=== PATIENT | female | born 1990 ===

== ENCOUNTER 2024-06-27 23:57 | Emergency (ER) | payer BC, SELFPAY ==
[2024-06-28 00:02] VITALS: BP 158/84; PULSE 65; RESP 20; TEMP 36.8; O2SAT 99; BMI 25.8
--- NOTE | 2024-06-28 00:33 | CRLHL7_ITS ---
For Patients: As a result of the Century Cures Act, medical imaging exams and procedure reports are released immediately into your electronic medical record. You may view this report before your referring provider. If you have questions, please contact your health care provider. Indication: Right flank pain Technique: Noncontrast CT through the abdomen and pelvis with multiplanar reformats. Comparison: None Findings: Lower chest: No acute abnormality appreciated. Hepatobiliary: No significant parenchymal abnormality is appreciated. Spleen: Unremarkable. Pancreas: No acute abnormality appreciated. Adrenal glands: No acute abnormality appreciated. Kidneys: No significant parenchymal abnormality appreciated. No visualized calculi. No hydronephrosis. Bowel: No obstruction. No focal perienteric or pericolonic stranding is appreciated. The appendix is visualized and appears unremarkable. Vascular: Poorly evaluated on this noncontrast examination. Lymph nodes: No gross lymphadenopathy. Peritoneum: No free air. No free fluid. : Right ovarian/adnexal cyst measures 6.8 centimeters. Soft tissues: No acute abnormality appreciated. Bones: No acute fracture. No lytic or blastic lesion. Impression: Right ovarian/adnexal cyst measures 6.8 centimeters, torsion not excluded. No other acute abnormality appreciated. Please note that all CT scans at this facility use dose modulation, iterative reconstruction, and/or weight-based dosing when appropriate to reduce radiation dose to as low as reasonably achievable. Dictated by Ran Elizondo MD @ 06/28/2024 12:58:14 AM (Electronically Signed)
--- NOTE | 2024-06-28 00:34 | ED.GENADULT ---
HPI - General Adult General Date Seen: 06/28/24 Chief complaint: Flank Pain Stated complaint: Kidney pain Time Seen by Provider: 06/28/24 00:28 Source: patient Mode of arrival: ambulatory Limitations: no limitations History of Present Illness HPI narrative: Patient is a 34-year-old female who comes in with five days of right flank pain. She denies any urinary symptoms. She has had no hematuria or dysuria. No fevers or chills. She has history of kidney stones with the last one being about six months ago. She has not take anything for pain. Her PCP is in [facility]. She is homeless and has been couch hopping for the past year. She has continued to work. She denies any other chronic health problems and takes no medications regularly. Related Data Home Medications ?Medication ?Instructions ?Recorded ?Confirmed No Known Home Medications 06/28/24 06/28/24 Allergies Allergy/AdvReac Type Severity Reaction Status Date / Time amoxicillin Allergy Mild Hives Verified 06/28/24 00:04 clavulanic acid Allergy Mild Hives Verified 06/28/24 00:04 [From Augmentin] Review of Systems Narrative: Review of systems is outlined above otherwise noted to be negative. [facility] Medical History (Updated 06/28/24 @ 01:17 by Trever West MD) History of kidney stones ?Z87.442 - Personal history of urinary calculi (ICD-10) Surgical History (Updated 06/28/24 @ 00:06 by Patrick Godinez RN) No significant past surgical history Social History Smoking Status: Never smoker Second hand tobacco smoke exposure: No How often do you have a drink containing alcohol: never AUDIT-C Alcohol total score: 0 Non-prescribed substance use: denies use Exam Narrative: Exam Narrative: Vitals noted. HEENT: Conjunctiva clear. Neck is supple without adenopathy, thyromegaly. Lungs: Clear to auscultation in all begum. No wheezes, rales, rhonchi. Heart: Regular rate and rhythm without murmur. Abdomen: Soft and nontender. No guarding, rigidity, rebound. Bowel sounds are normal. No palpable masses. She has some right CVA tenderness but in general does not appear terribly uncomfortable. Extremities: No cyanosis or edema. Good distal pulses. Skin: No abnormalities noted of the exposed skin. Neurologic: Awake, alert, fully oriented. Neurologic exam is nonfocal. Const: Vital Signs, click to edit/add: Vital Signs - 24 hr 06/28/24 00:02 06/28/24 01:25 06/28/24 01:29 Temperature 98.2 F 98.2 F 98.2 F Pulse Rate [Right Pulse Oximeter] 65 68 68 Respiratory Rate 20 20 20 Blood Pressure [Ri ght Upper Arm] 158/84 H 134/74 134/74 Pulse Oximetry 99 99 Oxygen Delivery Me thod Room Air Room Air Course Course ED Course: Patient seen and examined. Urinalysis and CT of her abdomen and pelvis without contrast is ordered. Reevaluation(s) Reevaluation #1: Urinalysis is normal. CT of the abdomen shows a 6.8 cm right ovarian cyst. The remainder of the CT is normal. Vital Signs Vital signs: Initial Vital Signs Temperature 98.2 F 06/28/24 00:02 Temperature Source Temporal Artery Scan 06/28/24 00:02 Pulse Rate 65 06/28/24 00:02 Respiratory Rate 20 06/28/24 00:02 Blood Pressure 158/84 H 06/28/24 00:02 Blood Pressure Mean 108 H 06/28/24 00:02 Blood Pressure Position Sitting 06/28/24 00:02 Pulse Oximetry 99 06/28/24 00:02 Oxygen Delivery Method Room Air 06/28/24 00:02 Vital Signs Temperature 98.2 F 06/28/24 00:02 Pulse Rate 65 06/28/24 00:02 Respiratory Rate 20 06/28/24 00:02 Blood Pressure 158/84 H 06/28/24 00:02 Pulse Oximetry 99 06/28/24 00:02 Oxygen Delivery Method Room Air 06/28/24 00:02 Temperature 98.2 F 06/28/24 01:29 Pulse Rate 68 06/28/24 01:29 Respiratory Rate 20 06/28/24 01:29 Blood Pressure 134/74 06/28/24 01:29 Pulse Oximetry 99 06/28/24 01:25 Oxygen Delivery Method Room Air 06/28/24 01:25 Medical Decision Making Lab Data Labs: Lab Results 06/28/24 Range/Units 00:30 Urine Color Yellow (Yellow) Urine Appearance Clear (Clear) Urine pH 5.5 (5.0-8.5) Ur Specific [place] >= 1.030 (1.000-1.030) Urine Protein Negative (Negative) Urine Glucose (UA) Negative (Negative) Urine Ketones Negative (Negative) Urine Blood Trace-intact A (Negative) Urine Nitrite Negative (Negative) Urine Bilirubin Negative (Negative) Urine Urobilinogen 0.2 (0.2-1.0) Ur Leukocyte Esterase Negative (Negative) Urine RBC 0-2 (0-2) Urine WBC 0-2 (0-5) Ur Squamous Epith Cells Few (None-Few) Urine Bacteria Few A (None) Urine Mucus Moderate A (None) Discharge Plan Discharge Clinical Impression: Cyst of right ovary Patient Disposition: Home, Self-Care Condition: Stable Additional Instructions: Rest, heat. Tylenol 1000 mg every 6 hours as needed, ibuprofen 600 mg every 6 hours as needed, oxycodone 5 mg every 6 hours for refractory pain. Follow-up with [facility] to discuss treatment options. Prescriptions: No Action No Known Home Medications Follow Up/Referrals: Provider,Not a Local [Primary Care Provider] - Stand Alone Forms: [employer] Info Instructions
[2024-06-28 01:00] LABS: Appearance Urine Clear (Clear); Bilirubin Urine Negative (Negative); Blood Urine Trace-intact (Negative); Color Urine Yellow (Yellow); Glucose Urine Negative (Negative); Ketones Urine Negative (Negative); Leukocyte Esterase Urine Negative (Negative); Nitrite Urine Negative (Negative); Protein Urine Negative (Negative); Specific Gravity Urine >= 1.030 (1.000-1.030); Urobilinogen Urine 0.2 (0.2-1.0); pH Urine 5.5 (5.0-8.5)
[2024-06-28 01:16] LABS: Bacteria Urine Few; RBC Urine 0-2 (0-2); Squamous Epithelial Cell Urine Few (None-Few); WBC Urine 0-2 (0-5)
[2024-06-28 01:17] LABS: Mucus Urine Moderate
[2024-06-28 01:25] VITALS: BP 134/74; PULSE 68; RESP 20; TEMP 36.8; O2SAT 99
[2024-06-28 01:29] VITALS: BP 134/74; PULSE 68; RESP 20; TEMP 36.8
== END 2024-06-28 01:29 | disposition home or self-care (01) ==
PROVIDERS: Emergency Provider Family Medicine
DX: N83.201 Unspecified ovarian cyst, right side (principal)
CPT/HCPCS: 74176; 81001; 81003; 87086; 99282; 99283; 99284

== ENCOUNTER 2024-06-30 01:21 | Emergency (ER) | payer BC, SELFPAY ==
[2024-06-30 01:28] VITALS: BP 134/99; PULSE 78; RESP 18; TEMP 36.3; O2SAT 97; BMI 25.1
--- NOTE | 2024-06-30 01:58 | ED.GENADULT ---
HPI - General Adult General Date Seen: 06/30/24 Chief complaint: Urogenital Problems, Female Stated complaint: ovarian cyst pain Time Seen by Provider: 06/30/24 01:57 History of Present Illness HPI narrative: 34-year-old female with a history of kidney stones, currently homeless, presents to the ER today with abdominal pain. She was seen in the ER 2 nights ago on 06/28/[address] West for this. Workup in the ER 2 nights ago showed normal urinalysis. CT scan showed evidence for right ovarian cyst. Impression: Right ovarian/adnexal cyst measures 6.8 centimeters, torsion not excluded. No other acute abnormality appreciated. Patient was given a prescription for oxycodone and has an appointment to follow-up in the [place] [facility] later this week (with a PA-patient unsure who). She has been having ongoing pain from this ovarian cyst. It has been coming and going in waves and it is fairly intolerable for her. When she takes oxycodone she is able to rest for few hours but the pain does not go away. She is now out of oxycodone. This evening around 9:00 p.m. she had a really severe flare of pain in her right lower quadrant. It felt like her right lower quadrant was much more painful, bloated and pulsing. Also some pain radiating into her right flank. She wanted to come straight to the ER at that time, but could not get a ride. She had wait till after midnight for her friend to bring her in. She still says she is having severe pain. No fever or chills. She has been nauseous from pain but no vomiting. Bowel movements have been normal. Urination has been normal. She just had her menstrual cycle last week and it has been normal. No abdominal trauma. Related Data Home Medications ?Medication ?Instructions ?Recorded ?Confirmed No Known Home Medications 06/28/24 06/28/24 Allergies Allergy/AdvReac Type Severity Reaction Status Date / Time amoxicillin Allergy Mild Hives Verified 06/28/24 00:04 clavulanic acid Allergy Mild Hives Verified 06/28/24 00:04 [From Augmentin] [facility] Medical History (Updated 06/30/24 @ 03:58 by Mario Mendez MD) History of kidney stones ?Z87.442 - Personal history of urinary calculi (ICD-10) Surgical History (Updated 06/28/24 @ 00:06 by Patrick Godinez RN) No significant past surgical history Social History Smoking Status: Never smoker Do you use any of these nicotine containing products: None Second hand tobacco smoke exposure: No How often do you have a drink containing alcohol: never How often do you have six or more drinks on one occasion: Never AUDIT-C Alcohol total score: 0 Non-prescribed substance use: denies use service: No Exam Narrative: Exam Narrative: Constitutional: Appears well-developed and well-nourished. Alert. Conversant. Non toxic. HENT: Head: Atraumatic. Nose: Nose normal. Mouth/Throat: Oral mucosa is clear and moist. no trismus. Pharynx normal. Tonsils symmetric. No tonsillar enlargement, erythema, or exudate. Eyes: Conjunctivae normal. EOM normal. Pupils equal, round, and reactive to light. No scleral icterus. Neck: Normal range of motion. Neck supple. No tracheal deviation present. Cardiovascular: Normal rate, regular rhythm. No gallop. No friction rub. No murmur heard. Pulmonary/Chest: Effort normal. No stridor. No respiratory distress. No wheezes. No rales. No rhonchi . Abdominal: Soft. Bowel sounds normal. No distension. No mass. Marked right lower quadrant tenderness. Right CVA tenderness as well. No left-sided tenderness. No rebound. No guarding. Musculoskeletal: RUE: Normal range of motion. No tenderness. No deformity LUE: Normal range of motion. No tenderness. No deformity RLE: Normal range of motion. No edema. No tenderness. No deformity LLE: Normal range of motion. No edema. No tenderness. No deformity Neurological: Alert and oriented to person, place, and time. Normal strength. CN II-VII intact. No sensory deficit. GCS eye subscore is 4. GCS verbal subscore is 5. GCS motor subscore is 6. Normal coordination Skin: Skin is warm and dry. No rash noted. No pallor. Normal capillary refill. Psychiatric: Normal mood. Normal affect. Const: Vital Signs, click to edit/add: Vital Signs - 24 hr 06/30/24 01:28 06/30/24 04:07 Temperature 97.3 F L 98.0 F Pulse Rate [Pulse Oximeter] 78 98 Respiratory Rate 18 16 Blood Pressure [Le ft Upper Arm] 134/99 H 118/70 Pulse Oximetry 97 Oxygen Delivery Me thod Room Air Course Vital Signs Vital signs: Initial Vital Signs Temperature 97.3 F L 06/30/24 01:28 Temperature Source Temporal Artery Scan 06/30/24 01:28 Pulse Rate 78 06/30/24 01:28 Pulse Rhythm Regular 06/30/24 01:28 Respiratory Rate 18 06/30/24 01:28 Blood Pressure 134/99 H 06/30/24 01:28 Blood Pressure Mean 110 H 06/30/24 01:28 Blood Pressure Position Supine 06/30/24 01:28 Pulse Oximetry 97 06/30/24 01:28 Oxygen Delivery Method Room Air 06/30/24 01:28 Vital Signs Temperature 97.3 F L 06/30/24 01:28 Pulse Rate 78 06/30/24 01:28 Respiratory Rate 18 06/30/24 01:28 Blood Pressure 134/99 H 06/30/24 01:28 Pulse Oximetry 97 06/30/24 01:28 Oxygen Delivery Method Room Air 06/30/24 01:28 Temperature 98.0 F 06/30/24 04:07 Pulse Rate 98 06/30/24 04:07 Respiratory Rate 16 06/30/24 04:07 Blood Pressure 118/70 06/30/24 04:07 Pulse Oximetry 97 06/30/24 01:28 Oxygen Delivery Method Room Air 06/30/24 01:28 Medications Administered Medications: Discontinued Medications Generic Name Dose Route Start Last Admin Trade Name Freq PRN Reason Stop Dose Admin Hydromorphone HCl 0.5 mg 06/30/24 02:11 06/30/24 02:43 Hydromorphone 0.5 Mg/0.5 Ml Inj IVP 0.5 mg Q1H PRN Administration Pain Sodium Chloride 1,000 mls @ 1,000 mls/hr 06/30/24 02:15 06/30/24 02:42 0.9 % Sodium Chloride 1000 Ml IV 06/30/24 03:14 1,000 mls/hr .Q1H RIK Administration Ketorolac Tromethamine 15 mg 06/30/24 02:11 06/30/24 02:43 Ketorolac 15 Mg/Ml Inj IVP 06/30/24 02:12 15 mg ONCE ONE Administration Ondansetron HCl 4 mg 06/30/24 02:11 06/30/24 02:43 Ondansetron 2 Mg/Ml Inj IVP 06/30/24 02:12 4 mg ONCE ONE Administration Medical Decision Making MDM Narrative Medical decision making narrative: 34-year-old female returning to the ER tonight (accompanied by her friend) for her worsening right lower quadrant right flank abdominal pain. She had been seen here 2 days ago for these symptoms. Urinalysis was normal and CT scan showed a fairly large simple appearing right ovarian cyst. She was given a prescription for oxycodone 2 nights ago but is now out and is having worsening pain. With significant worsening pain tonight, concern is for possible ovarian torsion because this fairly large cyst. Differential would also include cyst related pain, cyst rupture, problem, appendicitis, among others. Laboratory workup is reassuring. test negative. Pelvic ultrasound with Doppler flow is obtained and does demonstrate flow in that ovary. After pain meds the patient is clinically looking good. She is laughing and joking with her friends. Although she was endorsing severe pain at home here in the ER her presentation does not suggest active torsion. With blood flow on the ultrasound reassuring clinical exam I think she is safe for discharge home. She has a follow-up scans still this week with OBGYN. She will keep that appointment. Refill prescription for Percocet through [facility]. Prescription for Zofran through [facility] tablets. Lab Data Labs: Lab Results 06/30/24 06/30/24 Range/Units 02:20 02:36 WBC 6.93 (4.50-11.00) K/uL RBC 4.35 (4.00-5.20) m/uL Hgb 13.3 (12.0-16.0) gm/dL Hct 40.6 (33.0-51.0) % MCV 93 (80-100) fL MCH 31 (26-34) pg MCHC 33 (32-36) gm/dL RDW Coeff of Vee 12.5 (11.5-15.5) % Plt Count 234 (140-440) K/uL Neut % (Auto) 55.7 (42.0-72.0) % Lymph % (Auto) 34.5 (20-44) % [place] % (Auto) 6.9 (0.0-11.0) % Eos % (Auto) 2.2 (0.0-7.0) % Baso % (Auto) 0.1 (0.0-3.0) % Neut # (Auto) 3.86 (1.7-7.0) K/uL Lymph # (Auto) 2.39 (0.90-2.90) K/uL [place] # (Auto) 0.50 (0.00-0.90) K/UL Eos # (Auto) 0.15 (0.00-0.50) K/uL Baso # (Auto) 0.01 (0.00-0.30) K/uL Abs Immat Gran (auto) 0.04 (0.00-0.30) K/uL Imm/Tot Granulo (auto) 0.6 % Sodium 135 (135-149) mmol/L Potassium 4.1 (3.6-5.1) mmol/L Chloride 101 (96-114) mmol/L Carbon Dioxide 29 (20-32) mmol/L Anion Gap 5 L (7-15) mEq/L BUN 14 (5-24) mg/dL Creatinine 0.7 (0.5-1.5) mg/dL Estimated Creat Clear 114.23 Estimated GFR 116 ml/min Glucose 81 (60-115) mg/dL Calcium 9.3 (8.4-10.6) mg/dL Urine HCG, Qual Negative (Negative) Imaging Data US pelvis: Attestation: I have reviewed the pertinent imaging results. Radiologist's impression: Impression: Redemonstration of a large right simple appearing ovarian cyst measuring up to 6.9 centimeters. No other significant sonographic abnormality is appreciated. Please be aware, ovarian torsion remains a clinical diagnosis and can be present despite sonographic demonstration of blood flow. If there is strong clinical concern for torsion, gynecologic surgical consultation would be recommended. Otherwise, gynecologic surgical referral would be recommended for possible symptomatic cyst management. Discharge Plan Discharge Clinical Impression: Cyst of right ovary Patient Disposition: Home, Self-Care Condition: Stable Instructions: Ovarian Cyst (ED) Additional Instructions: Please come back to the ER right away if you have worsening pain, develops fever, uncontrolled nausea or vomiting, or have any other concerns. Please follow-up with your OB doctor this week for recheck. Use caution with prescription pr a killer such as oxycodone because they can cause dizziness and drowsiness and you should not drive for 6 hours after taking a pain pill.. Also, please start on stool softeners to avoid constipation. Be careful with oxycodone because it can be addictive. Prescriptions: No Action No Known Home Medications Follow Up/Referrals: Provider,Not a Local [Primary Care Provider] - Stand Alone Forms: [employer] Info Instructions
--- NOTE | 2024-06-30 02:11 | CRLHL7_ITS ---
For Patients: As a result of the Century Cures Act, medical imaging exams and procedure reports are released immediately into your electronic medical record. You may view this report before your referring provider. If you have questions, please contact your health care provider. Indication: Pelvic pain, right ovarian cyst Technique: Transvaginal pelvic ultrasound. Grayscale and color Doppler imaging utilized. Comparison: CT of the abdomen and pelvis performed 06/28/2024 Findings: Uterus: 8.6 x 3.9 x 5.5 centimeters. No masses or other significant parenchymal abnormality appreciated. Endometrium: 5 millimeters. Endometrium appears homogeneous. Right ovary: 7.2 x 4.6 x 6.7 centimeters. Redemonstration of a 6.9 x 4.8 x 6.0 centimeter cyst, grossly appearing simple but difficult to definitively assess due to large size. Arterial and venous waveforms detected. Left ovary: 5.1 x 2.9 x 3.1 centimeters. Unremarkable sonographic appearance. Arterial and venous waveforms detected. Other: No free fluid. Impression: Redemonstration of a large right simple appearing ovarian cyst measuring up to 6.9 centimeters. No other significant sonographic abnormality is appreciated. Please be aware, ovarian torsion remains a clinical diagnosis and can be present despite sonographic demonstration of blood flow. If there is strong clinical concern for torsion, gynecologic surgical consultation would be recommended. Otherwise, gynecologic surgical referral would be recommended for possible symptomatic cyst management. Dictated by Ran Elizondo MD @ 06/30/2024 3:48:26 AM (Electronically Signed)
[2024-06-30 02:32] LABS: Ur HCG Qualitative* Negative (Negative)
[2024-06-30] MEDS: 0.9 % SODIUM CHLORIDE 1000 ml 1,000 ML IV (02:42)
[2024-06-30] MEDS: KETOROLAC 15 MG/ML inj IVP (02:43)
[2024-06-30] MEDS: HYDROmorphone 0.5 mg/0.5 ml inj IVP (02:43)
[2024-06-30] MEDS: ONDANSETRON 2 MG/ML inj 4 MG IVP (02:43)
[2024-06-30 02:52] LABS: Basophils Absolute Auto 0.01 K/uL (0.00-0.30); Basophils Percent Auto 0.1 % (0.0-3.0); Eosinophils Absolute Auto 0.15 K/uL (0.00-0.50); Eosinophils Percent Auto 2.2 % (0.0-7.0); Hematocrit 40.6 % (33.0-51.0); Hemoglobin* 13.3 gm/dL (12.0-16.0); Immature Granulocytes Abs Auto 0.04 K/uL (0.00-0.30); Immature Granulocytes Pct Auto 0.6 %; Lymphocytes Absolute Auto 2.39 K/uL (0.90-2.90); Lymphocytes Percent Auto 34.5 % (20-44); Mean Corpuscular HGB Conc 33 gm/dL (32-36); Mean Corpuscular Hemoglobin 31 pg (26-34); Mean Corpuscular Volume 93 fL (80-100); Monocytes Percent Auto 6.9 % (0.0-11.0); Neutrophils Absolute Auto 3.86 K/uL (1.7-7.0); Neutrophils Percent Auto 55.7 % (42.0-72.0); Platelet Count* 234 K/uL (140-440); RDW Coefficient of Variation % 12.5 % (11.5-15.5); Red Blood Count 4.35 m/uL (4.00-5.20); White Blood Count* 6.93 K/uL (4.50-11.00)
[2024-06-30 03:00] LABS: Slide Review Reflex No
[2024-06-30 03:12] LABS: Chloride* 101 mmol/L (96-114); Potassium* 4.1 mmol/L (3.6-5.1); Sodium* 135 mmol/L (135-149)
[2024-06-30 03:14] LABS: Creatinine* 0.7 mg/dL (0.5-1.5); Est. Creatinine Clearance* 114.23; Estimated Glomerular Filt Rate 116 ml/min
[2024-06-30 03:15] LABS: Anion Gap 5 mEq/L (7-15); Blood Urea Nitrogen* 14 mg/dL (5-24); Calcium* 9.3 mg/dL (8.4-10.6); Carbon Dioxide* 29 mmol/L (20-32); Glucose* 81 mg/dL (60-115)
[2024-06-30 04:07] VITALS: BP 118/70; PULSE 98; RESP 16; TEMP 36.7
== END 2024-06-30 04:08 | disposition home or self-care (01) ==
PROVIDERS: Emergency Provider Emergency Medicine
DX: N83.291 Other ovarian cyst, right side (principal)
CPT/HCPCS: 36415; 76830; 80048; 81025; 85025; 93976; 96374; 96375; 99283; 99284; J1170; J1885; J2405; J7030

== ENCOUNTER 2024-07-03 10:33 | Day surgery (SDC) | payer BC, SELFPAY ==
[2024-07-03] VITALS (12 sets, daily range): BP systolic 121–142; BP diastolic 77–106; PULSE 47–60; RESP 16–18; TEMP 36.4–36.6; O2SAT 95–100; BMI 28.4
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
--- OUTSIDE RECORDS SUMMARY | 2024-07-03 10:37 | XMS_ITS | Referral Summary ---
Author Organization [facility] Address [address] [place] [address] Care Team Providers Care Continuous Pickling Line Pickler Helper Name Role Phone Renee Nieto PA-C Primary Care Provider [phone] Musa Slater Unavailable Unavailable AnuradhaDee Dee Rock Unavailable Unav ailable Encounters Date Type Department Care Team Description 06/15/2024 9:00 AM CDT Virtual Visit [address] [id number] Arabella Lock MD Anxiety and depression (Primary Dx); Borderline personality disorder (HCC); Homeless; Obsessive-compulsive disorder, unspecified type from Last 3 Months Allergies Active Allergy Reactions Criticality Noted Date [...] smoker 07/13/2023 Vitamin D insufficiency--recheck level in Decemb er 2021. 08/06/2022 Major depressive disorder 11/20/2021 [...] 1 year. 07/20/11:Pap--ASCUS, +HR HPV 70. Plan [place] - . In , ep, prob list, hx updated. 08/30/11: KIANNA 2 on colpo. Pap--ASC-H. [facility] referral made. LEEP scheduled for 10/11/11. Reminder in [facility]. LEEP 10/17--KIANNA 1-2 with clear margins; Pap in 6 months x 2. Then Yearly Paps until 2030. Reminder placed in [facility]. 05/08/12:ASCUS, -HPV. Repeat pap @ Annual Physical Exam in 10/2012 (per Provider). Reminder placed in [facility]IC 12/07/12: Patient failed follow-up. Pap tracking file closed. 02/13/13:Pap--NIL. Pap 1 year. 11/11/14:Pap--NIL, neg HPV. Pap + HPV cotesting in 1 year. 08/05/17 Pap: NIL/neg HPV. Immunizations Name Administration Dates Next Due HPV 12/27/2007,08/16/2007,03/08/2007 HPV9 12/27/2007,08/16/2007,03/08/2007 Hep A Immune Globulin 03/12/2009 Hep B Pediatric 06/28/2003,11/26/2002,06/26/2002 MMR 06/26/2002 Meningococcal MCV4P 03/28/2008 Pneumococcal PPSV23 03/12/2009 Td 06/26/2002 Tdap 02/03/2022 Social History Tobacco Use Types Packs/Day Years [...] Comments Blood Pressure 134/84 10/06/2023 2:36 PM [facility] Pulse 80 10/06/2023 2:36 PM [facility] Temperature 36.9 ??C (98.4 ??F) 10/06/2023 2:36 PM CS T Respiratory Rate 12 10/06/2023 2:36 PM [facility] Oxygen Saturation 98% 10/06/2023 2:36 PM [facility] Inhaled Oxygen Concentration - - Weight 83 kg (183 lb) 10/06/2023 2:36 PM [facility] Height 171.5 cm (5' 7.5) 10/06/2023 2:36 PM [facility] Body Mass Index 28.24 10/06/2023 2:36 PM [facility] Plan of Treatment Not on file Procedures Procedure Name Priority Date/Time Associated Diagnosis Comments HCV ANTIBODY ([facility]) Routine 10/06/2023 3:26 PM [facility] Screening for STDs (sexually transmitted diseases) [facility] PAP/APTIMA HPV W/REFLEX TO HPV GENOTYPES ([facility]) Routine 10/06/2023 3:26 PM [facility] Screening for cervical cancer from Last 3 Months or Most Recently Relevant to Health Maintenance Results * [facility] PAP/APTIMA HPV W/REFLEX TO HPV GENOTYPES ([facility]) (10/06/2023 3:26 PM [facility]) Diagnosis: ([facility]) Comment 03/2023 9:06 PM [facility] Comment: NEGATIVE FOR INTRAEPITHELIAL LESION OR MALIGNANCY. THIS SPECIMEN WAS RESCREENED PART OF OUR [employer] STORE BAGGER PROGRAM. Specimen Adequacy: ([facility]) Comment 10/11/2023 9:06 PM [facility] Comment: Satisfactory for evaluation. Endocervical and/or squamous metaplastic cells (endocervical component) are present. Clinician Provided ICD10: ([facility]) Comment 10/11/2023 9:06 PM [facility] Comment: Z12.4 Performed by: Comment 10/11/2023 9:06 PM [facility] Comment: Rodrigo Hackett Sr, Scarifier Operator (ASC) QC Reviewed by: ([facility]) Comment 10/11/2023 9:06 PM [facility] Comment: Saran Sauceda, Scarifier Operator (ASC) Cyto Comments ([facility]) . 10/11/2023 9:06 PM [facility] Note: ([facility]) Comment 9:06 PM [facility] Comment: The Pap smear is a screening test designed to aid in the detection of premalignant and malignant conditions of the uterine cervix. ??It is not a diagnostic procedure and should not be used as the sole means of detecting cervical cancer. ??Both false-positive and false-negative reports do occur. HPV Aptima ([facility]) Negative Negative 03/2023 9:06 PM [facility] Comment: This nucleic acid amplification test detects fourteen high-risk HPV types (16,18,31,33,35,39,45,51,52,56,58,59,66,68) without differentiation. HPV Genotype Reflex ([facility]) Comment 10/11/2023 9:06 PM [facility] Comment: Criteria not met, HPV Genotype not performed. Test Methodology ([facility]) Comment 10/11/2023 9:06 PM [facility] Comment: This liquid based ThinPrep(R) pap test was screened with the use of an image guided system. Pap 10/06/2023 3:26 PM [facility] 10/06/2023 3:26 PM [facility] Narrative [facility] - 10/11/2023 9:06 PM [facility] Specimen Comment: [id number] Specimen Comment: Source.............Cervix Specimen Comment: LMP / Prev Treat...None Specimen Comment: Dates / Results....LEEP AT AGE 21 Specimen Comment: No. of containers..01 ThinPrep Vial Performed at: ??01 - [facility] [address] [facility] [address], [place] ??[id number] Chain Repairer: Corinne Mckeon MD, Phone: ??[phone] Performed at: ??02 - [facility] [place] [address], [place], [place] ??[id number] Chain Repairer: Antoine Bartlett MD, Phone: ??[phone] Performed at: ??03 - [facility] [address] ??[id number] Chain Repairer: Micheal Bartlett MD, Phone: ??[phone] Renee Mario Hammer PA-C [facility]LES Performing Organization Address City/[facility]/ZIP Co de Phone Number [facility] [address] [place] [address] * HCV ANTIBODY ([facility]) (10/06/2023 3:26 PM [facility]) Hepatitis C Virus Antibody ([facility]) Non Reactive Non Reactive 10/08/2023 8:09 AM [facility] Comment: HCV antibody alone does not differentiate between previously resolved infection and active infection. Equivocal and Reactive HCV antibody results should be followed up with an HCV RNA test to support the diagnosis of active HCV infection. Blood Venipuncture / Unknown 10/06/2023 3:26 PM [facility] 10/06/2023 3:26 PM [facility] Narrative [facility] - 10/08/2023 8:09 AM [facility] Performed at: ??01 - [address] ??[id number] Chain Repairer: Zia Navarrete MD, Phone: ??[phone] Renee Nieto PA-C [facility] ORDER[facility] Performing Organization Address [facility] Co de Phone Number [facility] [address] [place] [address] from Last 3 Months or Most Recently Relevant to Health Maintenance Care Teams Continuous Pickling Line Pickler Helper Relationship Specialty Start Date End Date Renee Nieto PA-C [address] [place], [place] [phone] PCP - General Family Medicine 02/28/24 Musa Slater Patient Hand Nailer 06/26/24 Dee Dee Melchor, CLINICAL ATHLETIC INSTRUCTOR Senior Sales Director 06/26/24
--- OUTSIDE RECORDS SUMMARY | 2024-07-03 10:37 | XMS_ITS ---
Author Organization [facility] Address [address] [place] [address] Care Team Providers Care Electromechanical Equipment Tester Name Role Phone Renee Nieto PA-C Primary Care Provider [phone] Musa Slater Unavailable Dee Dee Melchor Unavailable Unav ailable Population Health Management Status:Identified (Enrolling) Start date:06/26/2024 Enrollment reason:Identified as high-risk Case Team Name Relationship Phone Dee Dee King FELT HAT MELLOWING MACHINE OPERATOR Lead Generation Specialist Musa Slater Patient Ski Edge Painter(Respons ible Staff) Continued Care and Services Coordination
--- NOTE | 2024-07-03 10:48 | W.PM.H&PU ---
History & Physical Update History & Physical Update H&P Reviewed and patient assessed: No changes noted
--- NOTE | 2024-07-03 11:14 | PM.PROC ---
Procedure Note Time Seen by Provider: 12:42 Date Seen: 07/03/24 Date of procedure: 07/03/24 Will [facility] bill your pro fee for this procedure?: Yes Procedure: Preoperative diagnosis: 34-year-old with right adnexal cyst and right lower quadrant pain. Postoperative diagnosis: Same. Procedure: Laparoscopic Right Salpingectomy Anesthesia: General endotracheal, local Surgeon: Valery Villeda MD Kindergarten Teacher: Solange Zapata MD EBL: 5mL Urine output: 200 mL clear urine IVF: 500ml Specimen: Right fallopian tube with cyst to pathology. Findings: On exam under anesthesia: The uterus was anteverted, 8 week size, mobile, without masses or nodularity palpable. Adnexa were without mass bilaterally. Fullness noted in R adnexa. The uterus sounded to 9 cm. On laparoscopy: normal uterus, bilateral ovaries and left fallopian tube. Right fallopian tube with 8 cm serous cyst within it. Few 1-2 mm implants of suspected endometriosis on the anterior bladder/peritoneum and posterior cul-de-sac. Normal appendix, liver and gallbladder. Procedure: Jaky was taken to the operating room where general anesthetic was found to be adequate. She was placed in the dorsal lithotomy position and an exam under anesthesia was performed with findings stated above. She was then prepped and draped in a normal sterile manner. A Hammond catheter was then placed. A bivalve speculum was then placed in the vaginal canal to visualize the cervix. The anterior lip of the cervix was grasped with an a long Allis clamp. The cervix was dilated to Hegar 6. Uterus was sounded to [] cm. A Rami uterine manipulator was then placed. Attention was then turned to performing the laparoscopic portion of the procedure. All incisions were injected with 0.5% Marcaine prior to incision. A vertical 5 mm infraumbilical, incision, was made and a 5 mm trocar placed under direct visualization with the laparoscope. The abdomen was then insufflated with carbon dioxide gas to a pressure of 15 mm of mercury. To bilateral lower quadrant trocars were then placed under direct visualization. Both were placed approximately 3-4 finger breaths medial to the ischial crests. The right trocar was 5 mm the left trocar was 11 mm. A diagnostic laparoscopy was then performed with findings stated above. The right fallopian tube was grasped with a sliding grasper. The right fallopian tube was removed from the broad ligament using the LigaSure dissecting forceps starting at the fimbriated cornual end of the tube. Sequential pedicles were then formed to the level of the fimbria. The tube was then removed at the at the right ovary and the tube with cis placed in the posterior cul-de-sac. An Endo-Catch bag was advanced into the pelvis and the cyst and fallopian tube were placed within it. Cyst was then incised with the [facility] spatula and the serous liquid suctioned with the suction poultry cleaner. the Endo-Catch bag with the right tube and cyst was then removed through the 11 mm port. The trocar then replaced. The pelvis irrigated and excellent hemostasis verified. the 11 mm trocar was then removed and the fascia reapproximated using the Ryan-Chuck fascial closure device. The remaining trocars were then removed under direct visualization with the CO2 gas allowed to escape the infraumbilical port prior to its removal. All incisions were reapproximated using 4-0 Monocryl in a running subcuticular manner. Exofinskin adhesive was then applied and adhesive dressings applied over each incision. The uterine manipulator and Hammond catheter were removed. The patient tolerated this procedure well. Sponge, lap and instrument counts were correct x2 at the end of the procedure and the patient was taken to the recovery area in stable condition.
[2024-07-03] MEDS: LACTATED RINGERS 1000 ML 100 ML IV (11:17)
[2024-07-03 11:28] LABS: Ur HCG Qualitative* Negative (Negative)
[2024-07-03 11:30] LABS: Hemoglobin* 12.7 gm/dL (12.0-16.0)
--- NOTE | 2024-07-03 11:58 | W.ANESCHARGE ---
Anesthesia Charges Start Date/Time Anesthesia Start Date: 07/03/24 Anesthesia Start Time: 11:30 Stop Date/Time Anesthesia Stop Date: 07/03/24 Anesthesia Stop Time: 12:55
[2024-07-03] MEDS: BUPIVACAINE 0.5% 30 ML 10 ML INJECTION (12:02)
--- NOTE | 2024-07-03 13:23 | SUR.PHASEI ---
Patient sleeping when came to PACU, denied pain or nausea, warm blankets applied, Awake to talk to surgeon and view photos, Patient meets discharge criteria from PACU.
--- NOTE | 2024-07-03 13:34 | SUR.PHASEI ---
Patient received 500 ml IV fluids in the OR, 150 ml of IV fluid in PACU. IV was discontinued and unable to chart the infused information on the MAR.
--- NOTE | 2024-07-03 14:35 | SUR.PHASEII ---
Patient received 100ML of IV Fluids in phase 2. IV fluids were discontinued and unable to chart the infused information on the MAR
== END 2024-07-03 14:30 | disposition home or self-care (01) ==
PROVIDERS: Visit Provider Obstetrics & Gynecology
PROC: (CPT 58662; principal; 2024-07-03 11:30)
DX: N83.8 Other noninflammatory disorders of ovary, fallopian tube and broad ligament (principal); R10.31 Right lower quadrant pain
CPT/HCPCS: 58661; 00840; 36415; 81025; 85018; 86850; 86900; 86901; 88304; 88305; J0330; J0665; J1100; J1630; J2250; J2405; J2704; J3010; J3490; J7120

== ENCOUNTER 2024-07-10 21:14 | Emergency (ER) | payer BC, SELFPAY ==
[2024-07-10 21:23] VITALS: BP 124/99; PULSE 84; RESP 16; TEMP 36.6; O2SAT 100; BMI 26.6
--- NOTE | 2024-07-10 21:46 | ED_ITS ---
HPI - General Adult General Time Seen by Provider: 21:46 Date Seen: 07/10/24 Chief complaint: Post Op Complication Stated complaint: R hip post surgery pain, fallopian remov1 week ago Time Seen by Provider: 07/10/24 21:43 Source: patient and RN notes reviewed Mode of arrival: ambulatory Limitations: no limitations History of Present Illness HPI narrative: This very pleasant 34-year-old female is ambulatory into the ED with complaint of right hip and right lower abdominal pain. She had right salpingectomy on July 03 for adnexal cyst and right lower quadrant abdominal pain. This was done laparoscopically under general anesthesia. She has had increasing pain over the last 3 days. Pain had been controlled prior to that. She has been using some oxycodone initially, now is just on Tylenol and ibuprofen. She states she tries to avoid Tylenol due to liver issues in the family and ibuprofen as she has had problems with her stomach and reportedly ulcers from ibuprofen. She notes there was pain in the right hip area, hurts internally when she moves it. Notes no changes in bowel habits, no urinary changes. There been no fevers or chills. She states her surgical wounds look good, are not painful. She also notes some bilateral shoulder blade pain. She cannot lie flat at night. She states when it 1st came on she thought she was having a heart attack. We discussed the air from the laparoscopic surgery that can irritate the diaphragm. She does note that changing her position, sitting upright more does help when it is bothering her. When she has the pain, it is difficult to breathe. We discussed that this is all typical diaphragmatic irritation that is well-known with laparoscopic surgery. Related Data Home Medications ?Medication ?Instructions ?Recorded ?Confirmed ondansetron 4 mg disintegrating mg PO 07/02/24 07/02/24 tablet Previous Rx's ?Medication ?Instructions ?Recorded oxycodone 5 mg tablet 5 mg PO 3XD PRN 4 OR GREATER ON 07/03/24 PAIN SCALE #20 tabs Allergies Allergy/AdvReac Type Severity Reaction Status Date / Time amoxicillin Allergy Mild Hives Verified 07/10/24 22:43 clavulanic acid Allergy Mild Hives Verified 07/10/24 22:43 [From Augmentin] Review of Systems Status of ROS: Reports: 6 or more systems reviewed and unremarkable except as noted in History and below [facility] Medical History Hypertension ?I10 - Essential (primary) hypertension (ICD-10) History of kidney stones ?Z87.442 - Personal history of urinary calculi (ICD-10) Surgical History S/P LEEP (loop electrosurgical excision procedure) (~2009) ?Z98.890 - Other specified postprocedural states (ICD-10) No significant past surgical history Family History Father Heart disease Stroke Kidney disease High blood pressure Cancer Paternal Grandfather Stroke Diabetes Maternal Grandmother Uterine cancer Ovarian cancer FH: mental illness Osteoporosis Mother Thyroid disease Sister Seizure disorder Alcohol dependence Social History What is your current living situation?: I have a place to live at present, but am concerned about future How hard is it for you to pay for the very basics like food, housing, medical care, and heating: very hard Do you want help finding or keeping work or a job: I do not need or want help 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 occupational history: 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 [employer] Highest level of school completed/degree received: some college, no degree Physical activity type: walking How many days of moderate to strenuous exercise, like a brisk walk, did you do in the last 7 days: 7 Smoking Status: Current every day smoker Second hand tobacco smoke exposure: No How often do you have a drink containing alcohol: never How often do you have six or more drinks on one occasion: Never AUDIT-C Alcohol total score: 0 Non-prescribed substance use: denies use Caffeine: Yes Are you now , , , , never or living with a partner: Social isolation score (0-1 are the most socially isolated patients): 0 Are you using contraception or practicing any form of control: No service: No Exam Const: Vital Signs, click to edit/add: Vital Signs - 24 hr 07/10/24 21:23 07/10/24 22:53 Temperature 97.8 F Pulse Rate [Pulse Oximeter] 84 75 Respiratory Rate 16 16 Blood Pressure [Ri ght Upper Arm] 124/99 H 124/91 H Pulse Oximetry 100 99 Oxygen Delivery Me thod Room Air Room Air Tender is a very pleasant 34-year-old female that is alert, interactive, no apparent distress. Sclera clear, face atraumatic, able speak in complete sentences. Neck supple, no adenopathy. Lungs are clear, good air entry, no wheezing or crackles. Does seem to have some diminished effort with deep breathing, she states it does bother her right now. CV regular rate and rhythm, no murmur, normal S1-S2, no S3-S4. Abdomen is soft common nondistended. The port sites look to be intact, no significant erythema, no drainage noted. She has some right lower quadrant tenderness when I palpate but do not feel any definitive mass, no rebound or guarding. I can internally and externally rotate her hip, she states that moving her hip does cause pain but seems to localize in that right lower quadrant area. Documenting provider has reviewed patient's vital signs: yes Course Course ED Course: Will place an IV, obtain CT abdomen pelvis imaging on this patient. Will get a full complement of labs. Will give her IV Toradol to see if it does help with her symptoms. She is afebrile, doubt infection but do need to consider the possibility of early postoperative intra-abdominal infection in the right lower quadrant. There could be complications of surgery. She is hemodynamically stable, doubt any significant bleeding. Will just have to wait the labs in the CT imaging to see if we can diagnose what is causing the pain for her in the right lower quadrant/hip. She certainly does have diaphragmatic irritation based on her history from laparoscopic surgery. Reevaluation(s) Time of Reevaluation #1: 23:16 Reevaluation #1: Reviewed CT results with patient. We are not finding any acute pathology, labs are normal. They do not see her appendix but I do not believe this to represent acute appendicitis for her. Have requested that she contact the clinic tomorrow and get back in with 1 of the OB Gyne surgeons for re-evaluation. In the meantime, we did discuss that her liver functions are normal, she can take a short course Tylenol. She can use some ibuprofen but take it with food to protect her stomach. I will write for 4 tablets of 5 mg oxycodone from [facility] to help her overnight until she can get back in to see 1 of the surgeons. She was supposed to go back to work today, will write her note to be out of work the next 2 days to allow her to rest. We discussed position changes and medication strategies. She states the Toradol did help some. Vital Signs Vital signs: Initial Vital Signs Temperature 97.8 F 07/10/24 21:23 Temperature Source Temporal Artery Scan 07/10/24 21:23 Pulse Rate 84 07/10/24 21:23 Respiratory Rate 16 07/10/24 21:23 Blood Pressure 124/99 H 07/10/24 21:23 Blood Pressure Mean 107 H 07/10/24 21:23 Blood Pressure Position Supine 07/10/24 21:23 Pulse Oximetry 100 07/10/24 21:23 Oxygen Delivery Method Room Air 07/10/24 21:23 Vital Signs Temperature 97.8 F 07/10/24 21:23 Pulse Rate 84 07/10/24 21:23 Respiratory Rate 16 07/10/24 21:23 Blood Pressure 124/99 H 07/10/24 21:23 Pulse Oximetry 100 07/10/24 21:23 Oxygen Delivery Method Room Air 07/10/24 21:23 Temperature 97.8 F 07/10/24 21:23 Pulse Rate 75 07/10/24 22:53 Respiratory Rate 16 07/10/24 22:53 Blood Pressure 124/91 H 07/10/24 22:53 Pulse Oximetry 99 07/10/24 22:53 Oxygen Delivery Method Room Air 07/10/24 22:53 Medications Administered Medications: Discontinued Medications Generic Name Dose Route Start Last Admin Trade Name April PRN Reason Stop Dose Admin Ketorolac Tromethamine 15 mg 07/10/24 21:53 07/10/24 22:04 Ketorolac 15 Mg/Ml Inj IVP 07/10/24 21:54 15 mg ONCE ONE Administration Medical Decision Making Lab Data Lab results reviewed: Yes I reviewed the patient's lab results Labs: Lab Results 07/10/24 Range/Units 22:17 WBC 6.00 (4.50-11.00) K/uL RBC 4.38 (4.00-5.20) m/uL Hgb 13.5 (12.0-16.0) gm/dL Hct 40.7 (33.0-51.0) % MCV 93 (80-100) fL MCH 31 (26-34) pg MCHC 33 (32-36) gm/dL RDW Coeff of Vee 12.7 (11.5-15.5) % Plt Count 285 (140-440) K/uL Neut % (Auto) 58.2 (42.0-72.0) % Lymph % (Auto) 31.2 (20-44) % [place] % (Auto) 8.0 (0.0-11.0) % Eos % (Auto) 1.7 (0.0-7.0) % Baso % (Auto) 0.2 (0.0-3.0) % Neut # (Auto) 3.50 (1.7-7.0) K/uL Lymph # (Auto) 1.87 (0.90-2.90) K/uL Y[place] # (Auto) 0.50 (0.00-0.90) K/UL Eos # (Auto) 0.10 (0.00-0.50) K/uL Baso # (Auto) 0.01 (0.00-0.30) K/uL Abs Immat Gran (auto) 0.04 (0.00-0.30) K/uL Imm/Tot Granulo (auto) 0.7 % Sodium 137 (135-149) mmol/L Potassium 3.8 (3.6-5.1) mmol/L Chloride 104 (96-114) mmol/L Carbon Dioxide 28 (20-32) mmol/L Anion Gap 5 L (7-15) mEq/L BUN 15 (5-24) mg/dL Creatinine 0.9 (0.5-1.5) mg/dL Estimated Creat Clear 88.85 Estimated GFR 86 ml/min Glucose 67 (60-115) mg/dL Lactate 0.9 (0.5-1.9) mmol/L Calcium 8.9 (8.4-10.6) mg/dL Total Bilirubin 0.3 (0.1-1.5) mg/dL AST 18 (12-35) U/L ALT 7 (4-35) U/L Alkaline Phosphatase 51 (40-150) U/L C-Reactive Protein < 0.5 L (0.5-1.0) mg/dL Total Protein 7.2 (6.0-8.3) g/dL Albumin 4.5 (3.3-5.0) g/dL Imaging Data CT scan - abdomen: Attestation: I have reviewed the pertinent imaging results. Radiologist's impression: Patient: TAYLOR MONGE Facility:?[facility] Patient ID:?[id number] Site Patient ID:?[id number]. Site :?1990 Study:?CT-Abdomen/Pelvis W/ 85CC ISOVUE 370-07/10/2024 10:44:17 PM Ordering Physician:MARY Final Report: INDICATION: INCREASED RLQ ABD PAIN, RECENT RT SALPINGECTOMY 1 WEEK AGO. HX CERVICAL CANCER. TECHNIQUE: CT abdomen and pelvis acquired with 85 cc of Isovue 370 IV contrast. COMPARISON: None. FINDINGS: Lower chest: Unremarkable. Liver: Unremarkable. Normal in size and attenuation. No suspicious masses. Gallbladder and bile ducts: Unremarkable. No stones or inflammation. No biliary dilatation. Pancreas: Unremarkable. No mass or inflammation. Spleen: Unremarkable. Normal in size. No masses. Adrenal glands: Unremarkable. No nodules. Kidneys: Unremarkable. No suspicious masses, stones, or hydronephrosis. GI tract: Unremarkable. Normal in caliber. No sign of mass or inflammation. The appendix is not clearly visualized; however, there are no inflammatory changes in the right lower quadrant. Vasculature: Abdominal aorta is normal in caliber. Mesenteric arteries are patent. Lymph nodes: No lymphadenopathy. Peritoneum/Abdominal Wall: Unremarkable. No free air or significant free fluid. Pelvis: Unremarkable. Bones: Unremarkable for age. IMPRESSION: No acute findings within the abdomen or pelvis. The appendix is not clearly visualized; however, there are no inflammatory changes in the right lower quadrant. Please note that all CT scans at this facility use dose modulation, iterative reconstruction, and/or weight-based dosing when appropriate to reduce radiation dose to as low as reasonably achievable. Dictated by Mario Chavez MD @ 07/10/2024 10:59:15 PM (Electronic Signature) Discharge Plan Discharge Clinical Impression: Post-operative pain Patient Disposition: Home, Self-Care Condition: Stable Instructions: Pain Management After Surgery (DC) Additional Instructions: [facility] to get scheduled for recheck. Note has been provided for you to be off work for the next few days. Can take Tylenol 1000 mg 3 times a day for the next 3-5 days to help with some of your pain. Can supplement with ibuprofen, follow bottle directions for dosing, take with food to protect your stomach. I have written for 4 tablets of oxycodone, 5 mg, no driving or operation of machinery well on this as this is a narcotic. Make sure that you use MiraLax and or senna while taking narcotics to help prevent narcotic associated constipation. You definitely are experiencing diaphragm irritation after laparoscopic surgery. The air from the laparoscopic surgery can get up under the diaphragm and cause this type of pain. Changing positions frequently, elevating your head more can be helpful. This will improve with time. Continue to follow your surgeons postoperative recommendations and any restrictions. Activity Detail: Follow surgery recommendations. Prescriptions: No Action ondansetron 4 mg tablet,disintegrating PO oxycodone 5 mg Tablet 5 mg PO 3XD PRN (Reason: 4 OR GREATER ON PAIN SCALE) Qty: 20 0RF Follow Up/Referrals: Provider,Not a Local [Non-Staff] - Stand Alone Forms: [employer] Info Instructions
--- NOTE | 2024-07-10 21:53 | CT_ITS ---
Patient: TAYLOR MONGE Facility:?[facility] R[facility] Patient ID:?[id number] Site Patient ID:?[id number]. Site :?1990 Study:?CT-Abdomen/Pelvis W/ 85CC ISOVUE 370-07/10/2024 10:44:17 PM Ordering Physician:MARY Final Report: INDICATION: INCREASED RLQ ABD PAIN, RECENT RT SALPINGECTOMY 1 WEEK AGO. HX CERVICAL CANCER. TECHNIQUE: CT abdomen and pelvis acquired with 85 cc of Isovue 370 IV contrast. COMPARISON: None. FINDINGS: Lower chest: Unremarkable. Liver: Unremarkable. Normal in size and attenuation. No suspicious masses. Gallbladder and bile ducts: Unremarkable. No stones or inflammation. No biliary dilatation. Pancreas: Unremarkable. No mass or inflammation. Spleen: Unremarkable. Normal in size. No masses. Adrenal glands: Unremarkable. No nodules. Kidneys: Unremarkable. No suspicious masses, stones, or hydronephrosis. GI tract: Unremarkable. Normal in caliber. No sign of mass or inflammation. The appendix is not clearly visualized; however, there are no inflammatory changes in the right lower quadrant. Vasculature: Abdominal aorta is normal in caliber. Mesenteric arteries are patent. Lymph nodes: No lymphadenopathy. Peritoneum/Abdominal Wall: Unremarkable. No free air or significant free fluid. Pelvis: Unremarkable. Bones: Unremarkable for age. IMPRESSION: No acute findings within the abdomen or pelvis. The appendix is not clearly visualized; however, there are no inflammatory changes in the right lower quadrant. Please note that all CT scans at this facility use dose modulation, iterative reconstruction, and/or weight-based dosing when appropriate to reduce radiation dose to as low as reasonably achievable. Dictated by Mario Chavez MD @ 07/10/2024 10:59:15 PM Signed by:?Mario Chavez MD @07/10/2024 10:59:15 PM (Electronic Signature)
[2024-07-10] MEDS: KETOROLAC 15 MG/ML inj IVP (22:04)
--- OUTSIDE RECORDS SUMMARY | 2024-07-10 22:14 | XMS_ITS | Referral Summary ---
Author Organization [facility] Address [address] [place] [address] Care Team Providers Care Animal Husbandry Teacher Name Role Phone Renee Nieto PA-C Primary Care Provider [phone] Musa Slater Unavailable Unavailable AnuradhaDee Dee RockW Unavailable Unav ailable Encounters Date Type Department Care Team Description 06/15/2024 9:00 AM CDT Virtual Visit [address] [id number] Arabella Lock MD Anxiety and depression (Primary [...] days 5 tablet 02/29/2024 Active Active Problems Patient Care Coordination No te Formatting of this note migh t be different from the original. Patient is eligible for Population Health Program and outreach has begun. Please have the patient contact [facility] Navigator at [phone] for more information. Problem Noted Date Diagnosed Date Genital herpes [...] 1 year. 07/20/11:Pap--ASCUS, +HR HPV 70. Plan [facility] - . In [facility], ep, prob list, hx updated. 08/30/11: KIANNA 2 on colpo. Pap--ASC-H. 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 LEEP scheduled for 10/11[facility]11. [facility] LEEP 10/17--KIANNA 1-2 with clear margins; [...] Comments Blood Pressure 134/84 10/06/2023 2:36 PM CARD LACER JACQUARD Pulse 80 10/06/2023 2:36 PM CARD LACER JACQUARD Temperature 36.9 ??C (98.4 ??F) 10/06/2023 2:36 PM CS T Respiratory Rate 12 10/06/2023 2:36 PM CARD LACER JACQUARD Oxygen Saturation 98% 10/06/2023 2:36 PM CARD LACER JACQUARD Inhaled Oxygen Concentration - - Weight 83 kg (183 lb) 10/06/2023 2:36 PM CARD LACER JACQUARD Height 171.5 cm (5' 7.5) 10/06/2023 2:36 PM CARD LACER JACQUARD Body Mass Index 28.24 10/06/2023 2:36 PM CARD LACER JACQUARD Plan of Treatment Not on file Procedures Procedure Name Priority Date/Time Associated Diagnosis Comments HCV ANTIBODY ([facility]) Routine 10/06/2023 3:26 PM CARD LACER JACQUARD Screening for STDs (sexually transmitted diseases) PASSENGER ELEVATOR OPERATOR PAP/APTIMA HPV W/REFLEX TO HPV GENOTYPES ([facility]) Routine 10/06/2023 3:26 PM CARD LACER JACQUARD Screening for cervical cancer from Last 3 Months or Most Recently Relevant to Health Maintenance Results * PASSENGER ELEVATOR OPERATOR PAP/APTIMA HPV W/REFLEX TO HPV GENOTYPES ([facility]) (10/06/2023 3:26 PM CARD LACER JACQUARD) Diagnosis: ([facility]) Comment 03/2023 9:06 PM CARD LACER JACQUARD [facility] Comment: NEGATIVE FOR INTRAEPITHELIAL LESION OR MALIGNANCY. THIS SPECIMEN WAS RESCREENED PART OF OUR COMPLEX DIRECTOR PROGRAM. Specimen Adequacy: ([facility]) Comment 10/11/2023 9:06 PM CARD LACER JACQUARD [facility] Comment: Satisfactory for evaluation. Endocervical and/or squamous metaplastic cells (endocervical component) are present. Clinician Provided ICD10: ([facility]) Comment 10/11/2023 9:06 PM CARD LACER JACQUARD [facility] Comment: Z12.4 Performed by: Comment 10/11/2023 9:06 PM CARD LACER JACQUARD [facility] Comment: Rodrigo Hackett Sr, Glaze Grinder ([facility]) QC Reviewed by: ([facility]) Comment 10/11/2023 9:06 PM CARD LACER JACQUARD [facility] Comment: Saran Sauceda, Glaze Grinder ([facility]) Cyto Comments ([facility]) . 10/11/2023 9:06 PM [facility] Note: ([facility]) Comment 9:06 PM [facility] Comment: The Pap smear is a screening test designed to aid in the detection of premalignant and malignant conditions of the uterine cervix. ??It is not a diagnostic procedure and should not be used as the sole means of detecting cervical cancer. ??Both false-positive and false-negative reports do occur. HPV Aptima ([facility]) Negative Negative 03/2023 9:06 PM [facility] Comment: This nucleic acid amplification test detects fourteen high-risk HPV types (16,18,31,33,35,39,45,51,52,56,58,59,66,68) without differentiation. HPV Genotype Reflex [facility] Comment 10/11/2023 9:06 PM [facility] Comment: Criteria not met, HPV Genotype not performed. Test Methodology ([facility]) Comment 10/11/2023 9:06 PM [facility] Comment: This liquid based ThinPrep(R) pap test was screened with the use of an image guided system. Pap 10/06/2023 3:26 PM CARD LACER JACQUARD 10/06/2023 3:26 PM [facility] - 10/11/2023 9:06 PM [facility] Specimen Comment: [id number] Specimen Comment: Source.............Cervix Specimen Comment: LMP / Prev Treat...None Specimen Comment: Dates / Results....LEEP AT AGE 21 Specimen Comment: No. of containers..01 ThinPrep Vial Performed at: ??01 - [facility] [address] [place] [address], [place], [place] ??[phone] Voice Systems Engineer: Corinne Mckeon MD, Phone: ??[phone] Performed at: ??02 - Lab[address] ??[id number] Voice Systems Engineer: Antoine Bartlett MD, Phone: ??[phone] Performed at: ??03 - [facility] [address] [facility] [address] [place] [address] ??[phone] Voice Systems Engineer: Micheal Bartlett MD, Phone: ??[phone] Renee Nieto PA-C [facility] ORDERABLES Performing Organization Address City/[facility]/ZIP Co de Phone Number [facility] [address] [place] [address] * HCV ANTIBODY ([facility]) (10/06/2023 3:26 PM CARD LACER JACQUARD) Hepatitis C Virus Antibody ([facility]) Non Reactive Non Reactive 10/08/2023 8:09 AM CARD LACER JACQUARD [facility] [place] Comment: HCV antibody alone does not differentiate between previously resolved infection and active infection. Equivocal and Reactive HCV antibody results should be followed up with an HCV RNA test to support the diagnosis of active HCV infection. Blood Venipuncture / Unknown 10/06/2023 3:26 PM CARD LACER JACQUARD 10/06/2023 3:26 PM CARD LACER JACQUARD Narrative [facility] - 10/08/2023 8:09 AM CARD LACER JACQUARD Performed at: ??01 - [facility] [address] [place] [address] ??[phone] Voice Systems Engineer: Zia Navarrete MD, Phone: ??[phone] Renee Nieto PA-C [facility] ORDERABLES Performing Organization Address City/[facility]/ZIP Co de Phone Number [facility] [address] [place] [address] from Last 3 Months or Most Recently Relevant to Health Maintenance Care Teams Animal Husbandry Teacher Relationship Specialty Start Date End Date Renee Nieto PA-C [address] [place] [address] PCP - General Family Medicine 02/28/24 Musa Slater 06/26/24 Anuradha Dee Dee King, JOINT SUPERVISOR Sr. Manager Corporate Communications 06/26/24
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
--- OUTSIDE RECORDS SUMMARY | 2024-07-10 22:14 | XMS_ITS ---
Author Organization [facility] Address [address] [place] [address] Care Team Providers Care Capsule Inspector Name Role Phone Renee Nieto PA-C Primary Care Provider [phone] Musa Slater Unavailable Dee Dee Melchor Unavailable Unav ailable Population Health Management Status:Identified (Enrolling) Start date:06/26/2024 Enrollment reason:Identified as high-risk Case Team Name Relationship Phone Dee Dee King TAPE CUTTING MACHINE OPERATOR Affiliate Marketing Manager Musa Slater Patient Overhead Crane Technician(Respons ible Staff) Continued Care and Services Coordination
--- OUTSIDE RECORDS SUMMARY | 2024-07-10 22:14 | XMS_ITS | Clinical Summary ---
Author Organization [facility] Address [address] [place] [address] Care Team Providers Care Phd Internship Name Role Phone Renee Nieto PA-C Primary Care Provider [phone] Musa Slaetr Unavailable Unavailable Anuradha Dee Dee King DOCK COORDINATOR Unavailable Unav ailable Allergies Active Allergy Reactions [...] has begun. Please have the patient contact [facility] Navigator at [phone] for more information. Problem Noted Date Diagnosed Date Genital herpes simplex, unspecified site 024 BV (bacterial vaginosis), recurrent 02/29/2024 History of cervical dysplasia 07/13/2023 Marijuana smoker 07/13/2023 Vitamin D insufficiency--recheck level in [facility] er 2021. 08/06/2022 Major depressive disorder [...] 1 year. 07/20/11:Pap--ASCUS, +HR HPV 70. Plan [place] - . In , ep, prob list, hx updated. 08/30/11: KIANNA 2 on colpo. Pap--ASC-H. EXHAUST EQUIPMENT OPERATOR referral made. LEEP scheduled for 10/11/11. Reminder in [facility]. LEEP 10/17--KIANNA 1-2 with clear margins; Pap [...] Description 06/15/2024 9:00 AM CDT Virtual Visit [address] [place] [phone] Arabella Lock MD Anxiety and depression (Primary Dx); Borderline personality disorder (HCC); Homeless; Obsessive-compulsive disorder, unspecified type from Last 3 Months Immunizations Name Administration Dates Next Due HPV 12/27/2007,08/16/2007,03/08/2007 HPV9 12/27/2007,08/16/2007,03/08/2007 Hep A Immune Globulin 03/12/2009 Hep B Pediatric 06/28/2003,11/26/2002,06/26/2002 MMR 06/26/2002 Meningococcal MCV4P 03/28/2008 Pneumococcal PPSV23 03/12/2009 Td 06/26/2002 Tdap 02/03/2022 Family History Medical History Relation Comments Brain/SHIP PURSER Cancer Father Heart Disease Father Lung Cancer [...] Comments Blood Pressure 134/84 10/06/2023 2:36 PM CUSTOMER SALES REPRESENTATIVE Pulse 80 10/06/2023 2:36 PM CUSTOMER SALES REPRESENTATIVE Temperature 36.9 ??C (98.4 ??F) 10/06/2023 2:36 PM CS T Respiratory Rate 12 10/06/2023 2:36 PM CUSTOMER SALES REPRESENTATIVE Oxygen Saturation 98% 10/06/2023 2:36 PM CUSTOMER SALES REPRESENTATIVE Inhaled Oxygen Concentration - - Weight 83 kg (183 lb) 10/06/2023 2:36 PM CUSTOMER SALES REPRESENTATIVE Height 171.5 cm (5' 7.5) 10/06/2023 2:36 PM CUSTOMER SALES REPRESENTATIVE Body Mass Index 28.24 10/06/2023 2:36 PM CUSTOMER SALES REPRESENTATIVE Plan of Treatment Health Maintenance Due Date Last Done Comments Anxiety Follow-Up (MIRA-7) 12/06/2023 10/06/2023 Depression Follow-Up (PHQ-9) 10/06/2024 10/06/2023 Pap Smear 10/06/2028 10/06/2023 Adult Tetanus Booster 02/04/2032 02/03/2022, 002 Pneumococcal <65 Discontinued 03/12/2009 Hepatitis C Screening Completed 10/06/2023, 022 COVID-19 Vaccine Discontinued Influenza Vaccine Discontinued Procedures Procedure Name Priority Date/Time Associated Diagnosis Comments HCV ANTIBODY ([facility]) Routine 10/06/2023 3:26 PM CUSTOMER SALES REPRESENTATIVE Screening for STDs (sexually transmitted diseases) EXHAUST EQUIPMENT OPERATOR PAP/APTIMA HPV W/REFLEX TO HPV GENOTYPES ([facility]) Routine 10/06/2023 3:26 PM CUSTOMER SALES REPRESENTATIVE Screening for cervical cancer from Last 3 Months or Most Recently Relevant to Health Maintenance Results * EXHAUST EQUIPMENT OPERATOR PAP/APTIMA HPV W/REFLEX TO HPV GENOTYPES ([facility]) (10/06/2023 3:26 PM CUSTOMER SALES REPRESENTATIVE) Diagnosis: ([facility]) Comment 120 03/2023 9:06 PM CUSTOMER SALES REPRESENTATIVE [facility] Comment: NEGATIVE FOR INTRAEPITHELIAL LESION OR MALIGNANCY. THIS SPECIMEN WAS RESCREENED PART OF OUR CHILDREN'S LUNCHROOM SUPERVISOR PROGRAM. Specimen Adequacy: ([facility]) Comment 10/11/2023 9:06 PM CUSTOMER SALES REPRESENTATIVE [facility] Comment: Satisfactory for evaluation. Endocervical and/or squamous metaplastic cells (endocervical component) are present. Clinician Provided ICD10: ([facility]) Comment 10/11/2023 9:06 PM CUSTOMER SALES REPRESENTATIVE [facility] Comment: Z12.4 Performed by: Comment 10/11/2023 9:06 PM CUSTOMER SALES REPRESENTATIVE [facility] Comment: Rodrigo Hackett Sr, Vice President Compliance (ASC) QC Reviewed by: ([facility]) Comment 10/11/2023 9:06 PM CUSTOMER SALES REPRESENTATIVE [facility] Comment: Saran Sauceda, Vice President Compliance ([facility]) Cyto Comments ([facility]) . 10/11/2023 9:06 PM CUSTOMER SALES REPRESENTATIVE [facility] Note: ([facility]) Comment 9:06 PM [facility] Comment: The Pap smear is a screening test designed to aid in the detection of premalignant and malignant conditions of the uterine cervix. ??It is not a diagnostic procedure and should not be used as the sole means of detecting cervical cancer. ??Both false-positive and false-negative reports do occur. HPV Aptima ([facility]) Negative Negative 03/2023 9:06 PM CUSTOMER SALES REPRESENTATIVE [facility] Comment: This nucleic acid amplification test detects fourteen high-risk HPV types (16,18,31,33,35,39,45,51,52,56,58,59,66,68) without differentiation. HPV Genotype Reflex ([facility]) Comment 10/11/2023 9:06 PM CUSTOMER SALES REPRESENTATIVE [facility] Comment: Criteria not met, HPV Genotype not performed. Test Methodology ([facility]) Comment 10/11/2023 9:06 PM CUSTOMER SALES REPRESENTATIVE [facility] Comment: This liquid based ThinPrep(R) pap test was screened with the use of an image guided system. Pap 10/06/2023 3:26 PM CUSTOMER SALES REPRESENTATIVE 10/06/2023 3:26 PM CUSTOMER SALES REPRESENTATIVE Narrative [facility] - 10/11/2023 9:06 PM CUSTOMER SALES REPRESENTATIVE Specimen Comment: [id number] Specimen Comment: Source.............Cervix Specimen Comment: LMP / Prev Treat...None Specimen Comment: Dates / Results....LEEP AT AGE 21 Specimen Comment: No. of containers..01 ThinPrep Vial Performed at: ??01 - [facility] [address] ??[id number] Direct Marketing Manager: Corinne Mckeon MD, Phone: ??[phone] Performed at: ??02 - [facility] [address] [facility], [place], [place] ??[id number] Direct Marketing Manager: Antoine Bartlett MD, Phone: ??[phone] Performed at: ??03 - [facility] [address] ??[id number] Direct Marketing Manager: Micheal Bartlett MD, Phone: ??[phone] Renee Nieto PA-C [facility] ORDERABLES [facility] [address] [place] [address] * HCV ANTIBODY ([facility]) (10/06/2023 3:26 PM CUSTOMER SALES REPRESENTATIVE) Hepatitis C Virus Antibody ([facility]) Non Reactive Non Reactive 10/08/2023 8:09 AM CUSTOMER SALES REPRESENTATIVE [facility] Comment: HCV antibody alone does not differentiate between previously resolved infection and active infection. Equivocal and Reactive HCV antibody results should be followed up with an HCV RNA test to support the diagnosis of active HCV infection. Blood Venipuncture / Unknown 10/06/2023 3:26 PM CUSTOMER SALES REPRESENTATIVE 10/06/2023 3:26 PM CUSTOMER SALES REPRESENTATIVE Narrative [facility] - 10/08/2023 8:09 AM CUSTOMER SALES REPRESENTATIVE Performed at: ??01 - [facility] [address] ??[id number] Direct Marketing Manager: Zia Navarrete MD, Phone: ??[phone] Renee Nieto PA-C [facility] [address] [place] [id number] from Last 3 Months or Most Recently Relevant to Health Maintenance Care Teams Phd Internship Relationship Specialty Start Date End Date Renee Nieto PA-C [address] [place] [address] PCP - General Family Medicine 02/28/24 Musa Slater 06/26/24 Dee Dee Melchor, DOCK COORDINATOR Assignment Agent 06/26/24
[2024-07-10 22:22] LABS: Lactate* 0.9 mmol/L (0.5-1.9)
[2024-07-10 22:36] LABS: Albumin* 4.5 g/dL (3.3-5.0); Chloride* 104 mmol/L (96-114); Sodium* 137 mmol/L (135-149)
[2024-07-10 22:37] LABS: Potassium* 3.8 mmol/L (3.6-5.1)
[2024-07-10 22:40] LABS: Alanine Aminotransferase* 7 U/L (4-35); Alkaline Phosphatase* 51 U/L (40-150); Anion Gap 5 mEq/L (7-15); Aspartate Amino Transferase* 18 U/L (12-35); Bilirubin Total* 0.3 mg/dL (0.1-1.5); Blood Urea Nitrogen* 15 mg/dL (5-24); Calcium* 8.9 mg/dL (8.4-10.6); Carbon Dioxide* 28 mmol/L (20-32); Creatinine* 0.9 mg/dL (0.5-1.5); Est. Creatinine Clearance* 88.85; Estimated Glomerular Filt Rate 86 ml/min; Glucose* 67 mg/dL (60-115); Total Protein* 7.2 g/dL (6.0-8.3)
[2024-07-10 22:45] LABS: Basophils Absolute Auto 0.01 K/uL (0.00-0.30); Basophils Percent Auto 0.2 % (0.0-3.0); Eosinophils Percent Auto 1.7 % (0.0-7.0); Hematocrit 40.7 % (33.0-51.0); Hemoglobin* 13.5 gm/dL (12.0-16.0); Immature Granulocytes Abs Auto 0.04 K/uL (0.00-0.30); Immature Granulocytes Pct Auto 0.7 %; Lymphocytes Absolute Auto 1.87 K/uL (0.90-2.90); Lymphocytes Percent Auto 31.2 % (20-44); Mean Corpuscular HGB Conc 33 gm/dL (32-36); Mean Corpuscular Hemoglobin 31 pg (26-34); Mean Corpuscular Volume 93 fL (80-100); Neutrophils Percent Auto 58.2 % (42.0-72.0); Platelet Count* 285 K/uL (140-440); RDW Coefficient of Variation % 12.7 % (11.5-15.5); Red Blood Count 4.38 m/uL (4.00-5.20)
[2024-07-10 22:49] LABS: C Reactive Protein* < 0.5 mg/dL (0.5-1.0)
[2024-07-10 22:50] LABS: Slide Review Reflex No
[2024-07-10 22:53] VITALS: BP 124/91; PULSE 75; RESP 16; O2SAT 99
== END 2024-07-10 23:34 | disposition home or self-care (01) ==
PROVIDERS: Emergency Provider Family Medicine; PCP Obstetrics & Gynecology
DX: G89.18 Other acute postprocedural pain (principal)
CPT/HCPCS: 36415; 74177; 80053; 83605; 85025; 86140; 96374; 99284; J1885; Q9967

== ENCOUNTER 2025-02-20 16:39 | Emergency (ER) | payer BC, SELFPAY ==
[2025-02-20] VITALS (7 sets, daily range): BP systolic 128–153; BP diastolic 90–104; PULSE 73–79; RESP 18; TEMP 37.2; O2SAT 99–100; BMI 26.6
--- OUTSIDE RECORDS SUMMARY | 2025-02-20 16:40 | XMS_ITS | Clinical Summary ---
Author Organization [facility] Address [address] [place] [address] [place] [address] Care Team Providers Care Mountain Bike Guide Name Role Phone Renee Nieot PA-C Primary Care Provider [phone] Allergies Active Allergy Reactions Criticality Noted Date Comments Amoxicillin-Pot Clavulanate Unknown Low 03/22/20 21 Other reaction(s): Other (see comments) Pt states she gets yeast infections after taking Medications valACYclovir (VALTREX) 1 gram oral tabletIndication s:Genital herpes simplex, unspecified site Take 1 tablet (1,000 mg) by mouth once daily. Take at first onset of symptoms and take daily for 5 days 5 tablet 4 Active Active Problems Patient Care Coordination No te Formatting of this note migh t be different from the original. Patient is eligible for one of [facility]'s Care Compass Programs (Care Coordination/Population Health), but we have been unable to reach them. If patient expresses interest or has questions, please have the patient contact our Body Designer at [phone] for more information. Problem Noted Date Diagnosed Date Genital herpes simplex, unspecified site 024 BV (bacterial vaginosis), recurrent 02/29/2024 History of cervical dysplasia 07/13/2023 Marijuana smoker 07/13/2023 Vitamin D insufficiency--recheck level in [facility] er 2021. 08/06/2022 Major depressive disorder 11/20/2021 [...] 1 year. 07/20/11:Pap--ASCUS, +HR HPV 70. Plan [place] - . In [facility], ep, prob list, hx updated. 08/30/11: KIANNA 2 on colpo. Pap--ASC-H. FASHION DIRECTOR PARTY PLAN SALES referral made. LEEP scheduled for 10/11/11. Reminder in [facility]. LEEP 10/17--KIANNA 1-2 with clear margins; Pap in 6 months x 2. Then Yearly Paps until 2030. Reminder placed in [facility]. 05/08/12:ASCUS, -HPV. Repeat pap @ Annual Physical Exam in 10/2012 (per Provider). Reminder placed in EPIC 12/07/12: Patient failed follow-up. Pap tracking file closed. 02/13/13:Pap--NIL. Pap 1 year. 11/11/14:Pap--NIL, neg HPV. Pap + HPV cotesting in 1 year. 08/05/17 Pap: NIL/neg HPV. Immunizations Name Administration Dates Next Due HPV Quadrivalent 12/27/2007,08/16/2007, 7 HPV9 12/27/2007,08/16/2007,03/08/2007 Hep A Immune Globulin 03/12/2009 Hep B Pediatric 06/28/2003,11/26/2002,06/26/2002 MMR 06/26/2002 Meningococcal MCV4P 03/28/2008 Pneumococcal PPSV23 03/12/2009 Td adult absorbed PF (2 Lf) 06/26/2002 Tdap 02/03/2022 Family History Medical History Relation Comments Brain/TRACK LAYER Cancer Father Heart Disease Father Lung Cancer Father Lymphoid Neoplasms Cancer Father Ovarian Cancer Maternal Grandmother Other Disease Mother uterine fibroids Diabetes Paternal Grandfather Emphysema Paternal Grandfather Other Disease Paternal Grandmother hypotension Relation Status Comments Father Maternal Grandmother Mother Paternal Grandfather Paternal Grandmother Social History Tobacco Use Types Packs/Day Years Used Date Smoking Tobacco: Every Day Cigarettes 0.5 23.3 Started: 2001 Smokeless Tobacco: Never Tobacco Cessation:Ready [...] exercise at this level? 0 min 08/05/2022 Comments No Sex and Gender Information Value Date Recorded Sex Assigned at Female 08/05/2022 7:33 PM CDT Legal Sex Female 5:01 AM COT ASSEMBLER Gender Identity Female 08/05/2022 7:33 PM CDT Sexual Orientation Straight 07/06/2023 2: 02 PM CDT Last Filed Vital Signs Vital Sign Reading Time Taken Comments Blood Pressure 134/84 10/06/2023 2:36 PM COT ASSEMBLER Pulse 80 10/06/2023 2:36 PM COT ASSEMBLER Temperature 36.9 C (98.4 F) 10/06/2023 2:36 PM COT ASSEMBLER Respiratory Rate 12 10/06/2023 2:36 PM COT ASSEMBLER Oxygen Saturation 98% 10/06/2023 2:36 PM COT ASSEMBLER Inhaled Oxygen Concentration - - Weight 83 kg (183 lb) 10/06/2023 2:36 PM COT ASSEMBLER Height 171.5 cm (5' 7.5) 10/06/2023 2:36 PM COT ASSEMBLER Body Mass Index 28.24 10/06/2023 2:36 PM COT ASSEMBLER Plan of Treatment Health Maintenance Due Date Last Done Comments Anxiety Follow-Up (MIRA-7) 12/06/2023 10/06/2023 Depression Follow-Up (PHQ-9) 10/06/2024 10/06/2023 Pap Smear 10/06/2028 10/06/2023 Adult Tetanus Booster 02/04/2032 02/03/2022, 002 RSV Vaccines (1 - 1-dose 75+ series) 2065 Pneumococcal Vaccine Discontinued 03/12/2009 Hepatitis C Screening Completed 10/06/2023, 022 COVID-19 Vaccine Discontinued Influenza Vaccine Discontinued Procedures Procedure Name Priority Date/Time Associated Diagnosis Comments HCV ANTIBODY ([facility]) Routine 10/06/2023 3:26 PM COT ASSEMBLER Screening for STDs (sexually transmitted diseases) FASHION DIRECTOR PARTY PLAN SALES PAP/APTIMA HPV W/REFLEX TO HPV GENOTYPES ([facility]) Routine 10/06/2023 3:26 PM COT ASSEMBLER Screening for cervical cancer from Last 3 Months or Most Recently Relevant to Health Maintenance Results * FASHION DIRECTOR PARTY PLAN SALES PAP/APTIMA HPV W/REFLEX TO HPV GENOTYPES ([facility]) (10/06/2023 3:26 PM COT ASSEMBLER) Diagnosis: ([facility]) Comment 03/2023 9:06 PM COT ASSEMBLER [facility] Comment: NEGATIVE FOR INTRAEPITHELIAL LESION OR MALIGNANCY. THIS SPECIMEN WAS RESCREENED PART OF OUR CHINESE TEACHER PROGRAM. Specimen Adequacy: ([facility]) Comment 10/11/2023 9:06 PM COT ASSEMBLER [facility] Comment: Satisfactory for evaluation. Endocervical and/or squamous metaplastic cells (endocervical component) are present. Clinician Provided ICD10: ([facility]) Comment 10/11/2023 9:06 PM COT ASSEMBLER [facility] Comment: Z12.4 Performed by: Comment 10/11/2023 9:06 PM COT ASSEMBLER [facility] Comment: Rodrigo Hackett Sr, Team Assembler ([facility]) QC Reviewed by: ([facility]) Comment 10/11/2023 9:06 PM [facility] Comment: Saran Sauceda, Team Assembler ([facility]) Cyto Comments ([facility]) . 10/11/2023 9:06 PM COT ASSEMBLER [facility] Note: ([facility]) Comment 9:06 PM [facility] Comment: The Pap smear is a screening test designed to aid in the detection of premalignant and malignant conditions of the uterine cervix. It is not a diagnostic procedure and should not be used as the sole means of detecting cervical cancer. Both false-positive and false-negative reports do occur. HPV Aptima ([facility]) Negative Negative 03/2023 9:06 PM [facility] Comment: This nucleic acid amplification test detects fourteen high-risk HPV types (16,18,31,33,35,39,45,51,52,56,58,59,66,68) without differentiation. HPV Genotype Reflex ([facility]) Comment 10/11/2023 9:06 PM [facility] Comment: Criteria not met, HPV Genotype not performed. Test Methodology ([facility]) Comment 10/11/2023 9:06 PM [facility] Comment: This liquid based ThinPrep(R) pap test was screened with the use of an image guided system. Pap 10/06/2023 3:26 PM COT ASSEMBLER 10/06/2023 3:26 PM [facility] - 10/11/2023 9:06 PM [facility] Specimen Comment: [id number] Specimen Comment: Source.............Cervix Specimen Comment: LMP / Prev Treat...None Specimen Comment: Dates / Results....LEEP AT AGE 21 Specimen Comment: No. of containers..01 ThinPrep Vial Performed at: 01 - [facility] [address] [id number] Cultural Anthropology Professor: Corinne Mckeon MD, Phone: [phone] Performed at: - [facility] [address] [facility] [address] [place] [id number] Cultural Anthropology Professor: Antoine Bartlett MD, Phone: [phone] Performed at: 03 - [facility] [place] [address] [id number] Cultural Anthropology Professor: Micheal Bartlett MD, Phone: [phone] Renee Nieto PA-C [facility]LES Final Re sult Performing Organization Address [facility]/ZIP Co de Phone Number [facility] [address] [place] [address] * HCV ANTIBODY ([facility]) (10/06/2023 3:26 PM COT ASSEMBLER) [facility] Hepatitis C Virus Antibody ([facility]) Non Reactive Non Reactive 10/08/2023 8:09 AM COT ASSEMBLER [facility] Comment: HCV antibody alone does not differentiate between previously resolved infection and active infection. Equivocal and Reactive HCV antibody results should be followed up with an HCV RNA test to support the diagnosis of active HCV infection. Blood Venipuncture / Unknown 10/06/2023 3:26 PM COT ASSEMBLER 10/06/2023 3:26 PM COT ASSEMBLER Narrative [facility] - 10/08/2023 8:09 AM COT ASSEMBLER Performed at: - [facility] [address] [id number] Cultural Anthropology Professor: Zia Navarrete MD, Phone: [phone] us Renee Nieto PA-C [facility] Final Re sult Performing Organization Address City/[facility]/ZIP Co de Phone Number [facility] [address] [place] [address] from Last 3 Months or Most Recently Relevant to Health Maintenance [place] [address] [address] PMAP/[facility] Address: [place] [address] Care Teams Mountain Bike Guide Relationship Specialty Start Date End Date Renee Nieto PA-C PCP - General Family Medicine 02/28/24
--- OUTSIDE RECORDS SUMMARY | 2025-02-20 16:40 | XMS_ITS ---
Author Organization [facility] Address [address] [place] [address] Care Team Providers Care Custom Decorating Consultant Name Role Phone None, None Primary Care Provider UnavailDIANELYS Celaya Unavailable [phone] Darcy Funez Unavailable Unavailable Allergies Allergen (clinical [...] Date End Date Status metroNIDAZOLE 0.75 % Vaginal; Duration: 10 Days Not-Taking valACYclovir HCl 1 GM Oral; Duration: 5 Days Not-Taking Azelastine HCl 137 MCG/SPRAY 1 puff in each nostril Nasally 1-2 [...] Problem Status W/U Status Risk Notes Problem [id number] Allergic rhinitis, unspecified seasonality, unspecified trigger (J30.9) Active confirmed Vital Signs Height 68.5 in 05/15/2024 BMI 26.97 kg/m2 05/15/2024 Height-cm 173.99 cm 05/15/2024 Weight-kg 81.65 kg 05/15/2024 Weight 180 lbs 05/15/2024 Encounters Encounter Location Date Provider Diagnosis [facility] [address] [place] [address] 05/15/2024 DIANELYS GALAVIZ Perforation of left tympanic membrane H72.92 and [...] Stop Date Notes Azelastine HCl 137 MCG/SPRAY 1 puff in e ach nostril Nasally 1-2 times a day; Duration: [...] noted. Progress Notes * Reyna MONGEOB: 0 (34 yo F)Acc No.[id number]:05/15/2024 Patient: Jaky Peterson Provider: Danilo Galaviz PA-C :1990 A ge:34 Y S ex:Female Date:05/15/2024 Address:[address] [id number] Subjective: * Chief Complaints: * N ew [...] cancer Medical History Verified * Surgical History: [place] teeth Surgical History verified. * Hospitalization/Major Diagno [...] to improve. * Preventive Medicine: MIPS: B CO Above Normal BMI Follow-up D ietary management education, guidance, and counseling T obacco Counseling: Patient counselled on the dangers of tobacco use and urged to quit. 0 05/15/2024 * Follow Up: p rn * Electronic signature of SARAH BRAY on 02/20/2025 at 04:40 PM CDT Sign off status: Pending * Provider: Danilo Galaviz PA-C Date: 0 05/15/2024 Generated for Pravin ventura/Rupa/Hienitting on: 0 02/20/2025 04:40 PM CDT
--- OUTSIDE RECORDS SUMMARY | 2025-02-20 16:40 | XMS_ITS | Patient Health Record ---
Author Organization [facility] Address [address] [place] [address] Care Team Providers Care Diagnostic Technician Name Role Phone None, None Primary Care Provider UnavailDIANELYS Celaya Unavailable [phone] Darcy Funez Unavailable Unavailable Rita Aguilar Unavailable [phone] Allergies Allergen (clinical drug ingredient) Drug/Non Drug Allergy documented on EMR Reaction Allergy Type Onset Date Status amoxicillin / clavulanate Augmentin Unknown Drug Allergy Active amoxicillin Amoxicillin Unknown Drug Allergy Act alannah Reason For Referral No Information Medications Medication SIG (Take, Route, Frequency, Duration) [...] Problem Status W/U Status Risk Notes Problem [id number] Allergic rhinitis, unspecified seasonality, unspecified trigger (J30.9) Active confirmed Vital Signs Height-cm 173.99 cm 05/15/2024 Weight-kg 81.65 kg 05/15/2024 Height 68.5 in 05/15/2024 Weight 180 lbs 05/15/2024 BMI 26.97 kg/m2 05/15/2024 Encounters Encounter Location Date Provider Diagnosis [facility] [place] [address] [place] [address] 05/15/2024 DIANELYS CLARKE Perforation of left tympanic membrane H72.92 and Allergic rhinitis, unspecified seasonality, unspecified trigger J30.9 [facility] [place] [address] [place] [address] 05/15/2024 Rita Aguilar Perforation of left tympanic membrane H72.92 Assessments Encounter Date Diagnosis (ICD Code) Assessment [...] if symptoms worsen or fail to improve. 05/15/2024 Perforation of left tympanic membrane (ICD-10 - H72.92) Plan Of Treatment No Information Insurance Providers Payer Name Payer Address Payer Phone Subscriber Number Group Number Insured Name Patient Relationship to Insured Coverage Start Date Coverage End Date Gabino Ventura [address] [address] [place] [address] [id number] Jaky Reyes Self - patient is the insured Medical (General) History Medical History History ICD Code Anxiety Depression Autoimmune disorder Hypertension Cervical cancer Surgical History Surgery Date(Month/Year) Pala teeth
--- OUTSIDE RECORDS SUMMARY | 2025-02-20 16:40 | XMS_ITS | Referral Summary ---
Author Organization [facility] Address [address] [place] [address] [place] [address] Care Team Providers Care Scheduler Name Role Phone Renee Nieto PA-C Primary Care Provider [phone] Allergies Active Allergy Reactions Criticality Noted Date [...] original. Patient is eligible for one of [facility]'s Care Compass Programs (Care Coordination/Population Health), but we have been unable to reach them. If patient expresses interest or has questions, please have the patient contact our Frame Table Operator at [phone] for more information. Problem Noted Date Diagnosed Date Genital herpes simplex, unspecified site 024 BV (bacterial vaginosis), recurrent 02/29/2024 History of cervical dysplasia 07/13/2023 Marijuana smoker 07/13/2023 Vitamin D insufficiency--recheck level in Dece er 2021. 08/06/2022 Major depressive disorder 11/20/2021 [...] 1 year. 07/20/11:Pap--ASCUS, +HR HPV 70. Plan [place] - . In [facility], ep, prob list, hx updated. 08/30/11: KIANNA 2 on colpo. Pap--ASC-H. TOW TRUCK DISPATCHER referral made. LEEP scheduled for 10/11/11. Reminder in [facility]. LEEP 10/17--KIANNA 1-2 with clear margins; Pap in 6 months x 2. Then Yearly Paps until 2030. Reminder placed in [facility]. 05/08/12:ASCUS, -HPV. Repeat pap @ Annual [...] absorbed PF (2 Lf) 06/26/2002 Tdap 02/03/2022 Social History Tobacco Use [...] PM CDT Legal Sex Female 5:01 AM BENDING ROLL OPERATOR Gender Identity Female 08/05/2022 7:33 PM CDT Sexual Orientation Straight 07/06/2023 2: 02 PM CDT Last Filed Vital Signs Vital Sign Reading Time Taken Comments Blood Pressure 134/84 10/06/2023 2:36 PM BENDING ROLL OPERATOR Pulse 80 10/06/2023 2:36 PM BENDING ROLL OPERATOR Temperature 36.9 C (98.4 F) 10/06/2023 2:36 PM BENDING ROLL OPERATOR Respiratory Rate 12 10/06/2023 2:36 PM BENDING ROLL OPERATOR Oxygen Saturation 98% 10/06/2023 2:36 PM BENDING ROLL OPERATOR Inhaled Oxygen Concentration - - Weight 83 kg (183 lb) 10/06/2023 2:36 PM BENDING ROLL OPERATOR Height 171.5 cm (5' 7.5) 10/06/2023 2:36 PM BENDING ROLL OPERATOR Body Mass Index 28.24 10/06/2023 2:36 PM BENDING ROLL OPERATOR Plan of Treatment Not on file Procedures Procedure Name Priority Date/Time Associated Diagnosis Comments HCV ANTIBODY ([facility]) Routine 10/06/2023 3:26 PM BENDING ROLL OPERATOR Screening for STDs (sexually transmitted diseases) TOW TRUCK DISPATCHER PAP/APTIMA HPV W/REFLEX TO HPV GENOTYPES ([facility]) Routine 10/06/2023 3:26 PM BENDING ROLL OPERATOR Screening for cervical cancer from Last 3 Months or Most Recently Relevant to Health Maintenance Results * TOW TRUCK DISPATCHER PAP/APTIMA HPV W/REFLEX TO HPV GENOTYPES ([facility]) (10/06/2023 3:26 PM BENDING ROLL OPERATOR) Diagnosis: ([facility]) Comment 03/2023 9:06 PM BENDING ROLL OPERATOR [facility] Comment: NEGATIVE FOR INTRAEPITHELIAL LESION OR MALIGNANCY. THIS SPECIMEN WAS RESCREENED PART OF OUR CERTIFIED ORTHOTIST PROGRAM. Specimen Adequacy: ([facility]) Comment 10/11/2023 9:06 PM BENDING ROLL OPERATOR [facility] Comment: Satisfactory for evaluation. Endocervical and/or squamous metaplastic cells (endocervical component) are present. Clinician Provided ICD10: ([facility]) Comment 10/11/2023 9:06 PM BENDING ROLL OPERATOR [facility] Comment: Z12.4 Performed by: Comment 10/11/2023 9:06 PM BENDING ROLL OPERATOR [facility] Comment: Rodrigo Hackett Sr, Wearing Apparel Assembler (ASCP) QC Reviewed by: ([facility]) Comment 10/11/2023 9:06 PM BENDING ROLL OPERATOR [facility] Comment: Saran Sauceda, Wearing Apparel Assembler (ASC) Cyto Comments ([facility]) . 10/11/2023 9:06 PM BENDING ROLL OPERATOR [facility] Note: ([facility]) Comment 9:06 PM BENDING ROLL OPERATOR [facility] Comment: The Pap smear is a screening test designed to aid in the detection of premalignant and malignant conditions of the uterine cervix. It is not a diagnostic procedure and should not be used as the sole means of detecting cervical cancer. Both false-positive and false-negative reports do occur. HPV Aptima ([facility]) Negative Negative 03/2023 9:06 PM BENDING ROLL OPERATOR [facility] Comment: This nucleic acid amplification test detects fourteen high-risk HPV types (16,18,31,33,35,39,45,51,52,56,58,59,66,68) without differentiation. HPV Genotype Reflex ([facility]) Comment 10/11/2023 9:06 PM BENDING ROLL OPERATOR [facility] Comment: Criteria not met, HPV Genotype not performed. Test Methodology ([facility]) Comment 10/11/2023 9:06 PM BENDING ROLL OPERATOR [facility] Comment: This liquid based ThinPrep(R) pap test was screened with the use of an image guided system. Pap 10/06/2023 3:26 PM BENDING ROLL OPERATOR 10/06/2023 3:26 PM BENDING ROLL OPERATOR Narrative [facility] - 10/11/2023 9:06 PM BENDING ROLL OPERATOR Specimen Comment: [id number] Specimen Comment: Source.............Cervix Specimen Comment: LMP / Prev Treat...None Specimen Comment: Dates / Results....LEEP AT AGE 21 Specimen Comment: No. of containers..01 ThinPrep Vial Performed at: 01 - [facility] [address] [facility] [address], [place] [id number] Security Administrator: Corinne Mckeon MD, Phone: [phone] Performed at: 02 - [address] [id number] Security Administrator: Antoine Bartlett MD, Phone: [phone] Performed at: 03 - [facility] [id number] Security Administrator: Micheal Bartlett MD, Phone: [phone] us Renee Nieto PA-C [facility] ORDERABLES Final Re sult [facility] [address] [place] [address] * HCV ANTIBODY ([facility]) (10/06/2023 3:26 PM BENDING ROLL OPERATOR) Hepatitis C Virus Antibody ([facility]) Non Reactive Non Reactive 10/08/2023 8:09 AM BENDING ROLL OPERATOR [facility] Comment: HCV antibody alone does not differentiate between previously resolved infection and active infection. Equivocal and Reactive HCV antibody results should be followed up with an HCV RNA test to support the diagnosis of active HCV infection. Blood Venipuncture / Unknown 10/06/2023 3:26 PM BENDING ROLL OPERATOR 10/06/2023 3:26 PM BENDING ROLL OPERATOR Narrative [facility] - 10/08/2023 8:09 AM BENDING ROLL OPERATOR Performed at: [facility] [email or web address] [place], [place] [id number] Security Administrator: Zia Navarrete MD, Phone: [phone] us Renee Nieto PA-C [facility] ORDERABLES Final Re sult [facility] [address] [place] [address] from Last 3 Months or Most Recently Relevant to Health Maintenance Insurance [facility] PMAP/MNCARE Care Teams Scheduler Relationship Specialty Start Date End Date Renee Nieto PA-C PCP - General Family Medicine 02/28/24
--- NOTE | 2025-02-20 17:25 | ED.GENADULT ---
HPI - General Adult General Chief complaint: Hypertension Stated complaint: hypertension, early Time Seen by Provider: 02/20/25 16:42 History of Present Illness HPI narrative: This 34-year-old female had a virtual appointment with a clinician and was instructed to come here because of elevated blood pressure and a positive test. Patient states that her last menstrual period was about a month ago. She has had some mild cramping and vaginal bleeding recently and she wonders if the is viable. She has a history of hypertension and has been on antihypertensives in the past but is no longer taking anything to treat her blood pressure. Her initial blood pressure on arrival here was in the 150s for systolic value. At the time of my visit it was 145. Does not report any headache or dysuria symptoms. Related Data Previous Rx's ?Medication ?Instructions ?Recorded nifedipine 10 mg capsule 10 mg PO BID #60 caps 02/20/25 Allergies Allergy/AdvReac Type Severity Reaction Status Date / Time amoxicillin Allergy Mild Hives Verified 02/20/25 16:49 clavulanic acid (From Allergy Mild Hives Verified 02/20/25 16:49 Augmentin) Review of Systems Status of ROS: Reports: 10 or more systems reviewed and unremarkable except as noted in History and below Narrative: Constitutional: No fevers, no weight gain or loss. Eyes: No discharge. No vision changes. HENT: No congestion, no sore throat, no ear pain. Cardiovascular: No chest pain, no palpitations. Respiratory: No shortness of breath, no wheezes, no cough. Gastrointestinal: No abdominal pain, no vomiting, no diarrhea. Genitourinary: No dysuria, no hematuria. Musculoskeletal: Normal range of motion. She gets cold hands very easily in wonders if she has Raynaud's phenomenon. She states that her hands turned red and white at times. Skin: No rashes, no pruritis. Neurological: No dizziness, weakness, sensory change, speech change. Endo/Heme/Allergies: No bruising or bleeding. No polydipsia. Pysch: no suicidality, no anxiety, no insomnia. All other systems reviewed and are negative. [facility] Medical History Hypertension ?I10 - Essential (primary) hypertension (ICD-10) History of kidney stones ?Z87.442 - Personal history of urinary calculi (ICD-10) Surgical History S/P LEEP (loop electrosurgical excision procedure) (~2009) ?Z98.890 - Other specified postprocedural states (ICD-10) No significant past surgical history Family History Father Heart disease Stroke Kidney disease High blood pressure Cancer Paternal Grandfather Stroke Diabetes Maternal Grandmother Uterine cancer Ovarian cancer FH: mental illness Osteoporosis Mother Thyroid disease Sister Seizure disorder Alcohol dependence Social History What is your current living situation?: I have a place to live at present, but am concerned about future How hard is it for you to pay for the very basics like food, housing, medical care, and heating: very hard Do you want help finding or keeping work or a job: I do not need or want help 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 occupational 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 [employer] Highest level of school completed/degree received: some college, no degree Physical activity type: walking How many days of moderate to strenuous exercise, like a brisk walk, did you do in the last 7 days: 7 Smoking Status: Current every day smoker Second hand tobacco smoke exposure: No How often do you have a drink containing alcohol: never How often do you have six or more drinks on one occasion: Never AUDIT-C Alcohol total score: 0 Non-prescribed substance use: amphetamines/methamphetamines Caffeine: Yes Are you now , , , , never or living with a partner: Social isolation score (0-1 are the most socially isolated patients): 0 Are you using contraception or practicing any form of control: No service: No Health Related Social Needs: housing instability, housed, with risk of homelessness (Z59.811) Exam Narrative: Exam Narrative: Constitutional: Well-developed, well-nourished, no acute distress. HEENT: Normocephalic, atraumatic. Neck: Normal range of motion. Nontender. Supple. Heart: Regular. No murmurs. Normal rate. Intact distal pulses. Lungs: Clear to auscultation. No chest discomfort. No wheezes, rhonchi, or rales. Abdomen: Normal bowel sounds. Nontender. No rebound tenderness. Genitalia: Deferred. Back: No midline tenderness. Normal range of motion. Extremities: Normal range of motion. No injury. Skin: Intact. No rash. Warm. No erythema or pallor. Neurologic: No altered sensation. No weakness. Alert and oriented. Psychiatric: No suicidality. No anxiety or depression. No insomnia. Nursing notes and vitals signs are reviewed. Const: Vital Signs, click to edit/add: Vital Signs - 24 hr 02/20/25 16:41 Temperature 98.9 F Pulse Rate [Right Pulse Oximeter] 78 Respiratory Rate 18 Blood Pressure [Ri ght Upper Arm] 153/93 H Pulse Oximetry 100 Oxygen Delivery Me thod Room Air Course Vital Signs Vital signs: Initial Vital Signs Temperature 98.9 F 02/20/25 16:41 Temperature Source Temporal Artery Scan 02/20/25 16:41 Pulse Rate 78 02/20/25 16:41 Pulse Rhythm Regular 02/20/25 16:41 Pulse Strength 3+ Normal 02/20/25 16:41 Respiratory Rate 18 02/20/25 16:41 Blood Pressure 153/93 H 02/20/25 16:41 Blood Pressure Mean 113 H 02/20/25 16:41 Blood Pressure Position Sitting 02/20/25 16:41 Pulse Oximetry 100 02/20/25 16:41 Oxygen Delivery Method Room Air 02/20/25 16:41 Vital Signs Temperature 98.9 F 02/20/25 16:41 Pulse Rate 78 02/20/25 16:41 Respiratory Rate 18 02/20/25 16:41 Blood Pressure 153/93 H 02/20/25 16:41 Pulse Oximetry 100 02/20/25 16:41 Oxygen Delivery Method Room Air 02/20/25 16:41 Temperature 98.9 F 02/20/25 16:41 Pulse Rate 78 02/20/25 16:41 Respiratory Rate 18 02/20/25 16:41 Blood Pressure 153/93 H 02/20/25 16:41 Pulse Oximetry 100 02/20/25 16:41 Oxygen Delivery Method Room Air 02/20/25 16:41 Medical Decision Making MDM Narrative Medical decision making narrative: This patient comes in stating that she found out recently that she is and is concerned about elevated blood pressure. Upon arrival she did have elevated blood pressures in the 140 and 150 range for systolic value but her last 4 readings show blood pressures in the 120s. Labs are acquired and these all returned with reassuring findings. Her beta hCG level is at around 47,000 which is consistent with a 4-6 week gestation . I did contact the senior solutions workflow consultant physician on-call regarding a low-dose antihypertensive medication that may be appropriate for her and I stated that a calcium channel binta may help with her symptoms of possible Raynaud's phenomena. She received a prescription for nifedipine and will follow up with a 1st OB appointment. Lab Data Labs: Lab Results 02/20/25 Range/Units 17:35 WBC 6.76 (4.50-11.00) K/uL RBC 4.13 (4.00-5.20) m/uL Hgb 12.8 (12.0-16.0) gm/dL Hct 38.1 (33.0-51.0) % MCV 92 (80-100) fL MCH 31 (26-34) pg MCHC 34 (32-36) gm/dL RDW Coeff of Vee 12.5 (11.5-15.5) % Plt Count 269 (140-440) K/uL Neut % (Auto) 61.5 (42.0-72.0) % Lymph % (Auto) 28.0 (20-44) % Roosevelt % (Auto) 7.0 (0.0-11.0) % Eos % (Auto) 2.5 (0.0-7.0) % Baso % (Auto) 0.1 (0.0-3.0) % Neut # (Auto) 4.16 (1.7-7.0) K/uL Lymph # (Auto) 1.89 (0.90-2.90) K/uL Roosevelt # (Auto) 0.50 (0.00-0.90) K/UL Eos # (Auto) 0.17 (0.00-0.50) K/uL Baso # (Auto) 0.01 (0.00-0.30) K/uL Abs Immat Gran (auto) 0.06 (0.00-0.30) K/uL Imm/Tot Granulo (auto) 0.9 % Sodium 133 L (135-149) mmol/L Potassium 4.0 (3.6-5.1) mmol/L Chloride 101 (96-114) mmol/L Carbon Dioxide 26 (20-32) mmol/L Anion Gap 6 L (7-15) mEq/L BUN 10 (5-24) mg/dL Creatinine 0.7 (0.5-1.5) mg/dL Estimated Creat Clear 114.23 Estimated GFR 116 ml/min Glucose 76 (60-115) mg/dL Calcium 8.9 (8.4-10.6) mg/dL Total Bilirubin 0.6 (0.1-1.5) mg/dL Direct Bilirubin 0.3 (0.0-0.5) mg/dL AST 19 (12-35) U/L ALT 7 (4-35) U/L Alkaline Phosphatase 41 (40-150) U/L Total Protein 6.5 (6.0-8.3) g/dL Albumin 4.1 (3.3-5.0) g/dL HCG, Quant 24270.00 mIU/mL Discharge Plan Discharge Clinical Impression: Hypertension, Patient Disposition: Home, Self-Care Condition: Stable Additional Instructions: Take medication as prescribed and follow-up with OBGYN clinic for 1st OB appointment. Return if worsening. Prescriptions: New nifedipine 10 mg capsule 10 mg PO BID Qty: 60 2RF Follow Up/Referrals: Provider,Not a Local [Primary Care Provider] - Stand Alone Forms: MyHealth Info Instructions
[2025-02-20 17:45] LABS: Basophils Absolute Auto 0.01 K/uL (0.00-0.30); Basophils Percent Auto 0.1 % (0.0-3.0); Eosinophils Absolute Auto 0.17 K/uL (0.00-0.50); Eosinophils Percent Auto 2.5 % (0.0-7.0); Hematocrit 38.1 % (33.0-51.0); Hemoglobin* 12.8 gm/dL (12.0-16.0); Immature Granulocytes Abs Auto 0.06 K/uL (0.00-0.30); Immature Granulocytes Pct Auto 0.9 %; Lymphocytes Absolute Auto 1.89 K/uL (0.90-2.90); Mean Corpuscular HGB Conc 34 gm/dL (32-36); Mean Corpuscular Hemoglobin 31 pg (26-34); Mean Corpuscular Volume 92 fL (80-100); Neutrophils Absolute Auto 4.16 K/uL (1.7-7.0); Neutrophils Percent Auto 61.5 % (42.0-72.0); Platelet Count* 269 K/uL (140-440); RDW Coefficient of Variation % 12.5 % (11.5-15.5); Red Blood Count 4.13 m/uL (4.00-5.20); White Blood Count* 6.76 K/uL (4.50-11.00)
[2025-02-20 17:50] LABS: Slide Review Reflex No
[2025-02-20 18:03] LABS: Albumin* 4.1 g/dL (3.3-5.0); Chloride* 101 mmol/L (96-114); Sodium* 133 mmol/L (135-149)
[2025-02-20 18:05] LABS: Blood Urea Nitrogen* 10 mg/dL (5-24); Creatinine* 0.7 mg/dL (0.5-1.5); Est. Creatinine Clearance* 114.23; Estimated Glomerular Filt Rate 116 ml/min
[2025-02-20 18:06] LABS: Alanine Aminotransferase* 7 U/L (4-35); Alkaline Phosphatase* 41 U/L (40-150); Anion Gap 6 mEq/L (7-15); Aspartate Amino Transferase* 19 U/L (12-35); Bilirubin Direct* 0.3 mg/dL (0.0-0.5); Bilirubin Total* 0.6 mg/dL (0.1-1.5); Calcium* 8.9 mg/dL (8.4-10.6); Carbon Dioxide* 26 mmol/L (20-32); Glucose* 76 mg/dL (60-115); Total Protein* 6.5 g/dL (6.0-8.3)
--- OUTSIDE RECORDS SUMMARY | 2025-02-20 18:27 | XMS_ITS | Clinical Summary ---
Author Organization [facility] Address [address] [place] [address] [place] [address] Care Team Providers Care Environmental Test Technician Name Role Phone Renee Nieto PA-C Primary Care Provider [phone] Allergies Active Allergy Reactions Criticality Noted Date [...] original. Patient is eligible for one of [facility]'s Care Compass Programs (Care Coordination/Population Health), but we have been unable to reach them. If patient expresses interest or has questions, please have the patient contact our Crane Chaser at [phone] for more information. Problem Noted Date Diagnosed Date Genital herpes simplex, unspecified site 024 BV (bacterial vaginosis), recurrent 02/29/2024 History of cervical dysplasia 07/13/2023 Marijuana smoker 07/13/2023 Vitamin D insufficiency--recheck level in [facility] er 2021. 08/06/2022 Major depressive [...] 1 year. 07/20/11:Pap--ASCUS, +HR HPV 70. Plan [place] - . In HM, ep, prob list, hx updated. 08/30/11: KIANNA 2 on colpo. Pap--ASC-H. GLASS BLOWING INSTRUCTOR referral made. LEEP scheduled for 10/11/11. Reminder in [facility]. LEEP 10/17--KIANNA 1-2 with clear margins; Pap in 6 months x 2. Then Yearly Paps until 2030. Reminder placed in [facility]. 05/08/12:ASCUS, -HPV. Repeat pap @ [...] 02/03/2022 Family History Medical History Relation Comments Brain/CRANKSHAFT STRAIGHTENER Cancer Father Heart Disease Father Lung Cancer [...] PM CDT Legal Sex Female 5:01 AM MENTAL HEALTH WORKER Gender Identity Female 08/05/2022 7:33 PM CDT Sexual Orientation Straight 07/06/2023 2: 02 PM CDT Last Filed Vital Signs Vital Sign Reading Time Taken Comments Blood Pressure 134/84 10/06/2023 2:36 PM MENTAL HEALTH WORKER Pulse 80 10/06/2023 2:36 PM MENTAL HEALTH WORKER Temperature 36.9 C (98.4 F) 10/06/2023 2:36 PM MENTAL HEALTH WORKER Respiratory Rate 12 10/06/2023 2:36 PM MENTAL HEALTH WORKER Oxygen Saturation 98% 10/06/2023 2:36 PM MENTAL HEALTH WORKER Inhaled Oxygen Concentration - - Weight 83 kg (183 lb) 10/06/2023 2:36 PM MENTAL HEALTH WORKER Height 171.5 cm (5' 7.5) 10/06/2023 2:36 PM MENTAL HEALTH WORKER Body Mass Index 28.24 10/06/2023 2:36 PM MENTAL HEALTH WORKER Plan of Treatment Health Maintenance Due [...] HCV ANTIBODY ([facility]) Routine 10/06/2023 3:26 PM MENTAL HEALTH WORKER Screening for STDs (sexually transmitted diseases) GLASS BLOWING INSTRUCTOR PAP/APTIMA HPV W/REFLEX TO HPV GENOTYPES ([facility]) Routine 10/06/2023 3:26 PM MENTAL HEALTH WORKER Screening for cervical cancer from Last 3 Months or Most Recently Relevant to Health Maintenance Results * GLASS BLOWING INSTRUCTOR PAP/APTIMA HPV W/REFLEX TO HPV GENOTYPES ([facility]) (10/06/2023 3:26 PM MENTAL HEALTH WORKER) Diagnosis: ([facility]) Comment 03/2023 9:06 PM MENTAL HEALTH WORKER [facility] Comment: NEGATIVE FOR INTRAEPITHELIAL LESION OR MALIGNANCY. THIS SPECIMEN WAS RESCREENED PART OF OUR COMMERCIAL PRODUCTION EDITOR PROGRAM. Specimen Adequacy: ([facility]) Comment 10/11/2023 9:06 PM MENTAL HEALTH WORKER [facility] Comment: Satisfactory for evaluation. Endocervical and/or squamous metaplastic cells (endocervical component) are present. Clinician Provided ICD10: ([facility]) Comment 10/11/2023 9:06 PM MENTAL HEALTH WORKER [facility] Comment: Z12.4 Performed by: Comment 10/11/2023 9:06 PM MENTAL HEALTH WORKER [facility] Comment: Rodrigo Hackett Sr, Dishwashing Machine Operator ([facility]) QC Reviewed by: ([facility]) Comment 10/11/2023 9:06 PM [facility] Comment: Saran Sauceda, Dishwashing Machine Operator ([facility]) Cyto Comments ([facility]) . 10/11/2023 9:06 PM MENTAL HEALTH WORKER [facility] Note: ([facility]) Comment 9:06 PM [facility] Comment: The Pap smear is a screening test designed to aid in the detection of premalignant and malignant conditions of the uterine cervix. It is not a diagnostic procedure and should not be used as the sole means of detecting cervical cancer. Both false-positive and false-negative reports do occur. HPV Aptima ([facility]) Negative Negative 03/2023 9:06 PM [facility] Comment: This nucleic acid amplification test detects fourteen high-risk HPV types (16,18,31,33,35,39,45,51,52,56,58,59,66,68) without differentiation. HPV Genotype Reflex ([facility]) Comment 10/11/2023 9:06 PM [facility] Comment: Criteria not met, HPV Genotype not performed. Test Methodology ([facility]) Comment 10/11/2023 9:06 PM [facility] Comment: This liquid based ThinPrep(R) pap test was screened with the use of an image guided system. Pap 10/06/2023 3:26 PM MENTAL HEALTH WORKER 10/06/2023 3:26 PM [facility] - 10/11/2023 9:06 PM [facility] Specimen Comment: [id number] Specimen Comment: Source.............Cervix Specimen Comment: LMP / Prev Treat...None Specimen Comment: Dates / Results....LEEP AT AGE 21 Specimen Comment: No. of containers..01 ThinPrep Vial Performed at: 01 - [facility] [address] [id number] Perinatal Coordinator: Corinne Mckeon MD, Phone: [phone] Performed at: - [facility] [place] [address] [facility] [address] [place] [id number] Perinatal Coordinator: Antoine Bartlett MD, Phone: [phone] Performed at: 03 - [facility] [address] [id number] Perinatal Coordinator: Micheal Bartlett MD, Phone: [phone] Renee Nieto PA-C [facility] ORDERABLES Final Re sult Performing Organization Address [facility]/ZIP Co de Phone Number [facility] [address] [place] [address] * HCV ANTIBODY ([facility]) (10/06/2023 3:26 PM MENTAL HEALTH WORKER) [facility] Hepatitis C Virus Antibody ([facility]) Non Reactive Non Reactive 10/08/2023 8:09 AM MENTAL HEALTH WORKER [facility] Comment: HCV antibody alone does not differentiate between previously resolved infection and active infection. Equivocal and Reactive HCV antibody results should be followed up with an HCV RNA test to support the diagnosis of active HCV infection. Blood Venipuncture / Unknown 10/06/2023 3:26 PM MENTAL HEALTH WORKER 10/06/2023 3:26 PM MENTAL HEALTH WORKER Narrative [facility] - 10/08/2023 8:09 AM MENTAL HEALTH WORKER Performed at: - [facility] [address] [id number] Perinatal Coordinator: Zia Navarrete MD, Phone: [phone] us Renee Nieto PA-C [facility] ORDERABLES Final Re sult Performing Organization Address City/[facility]/ZIP Co de Phone Number [facility] [address] [place] [address] from Last 3 Months or Most Recently Relevant to Health Maintenance [place] [address] [place] [address] PMAP/MNCARE Care Teams Environmental Test Technician Relationship Specialty Start Date End Date Renee Nieto PA-C PCP - General Family Medicine 02/28/24
--- OUTSIDE RECORDS SUMMARY | 2025-02-20 18:27 | XMS_ITS | Referral Summary ---
Author Organization [facility] Address [address] [place] [address] [place] [address] Care Team Providers Care Exerciser Name Role Phone Renee Nieto PA-C Primary Care Provider [phone] Allergies Active Allergy Reactions Criticality Noted Date [...] original. Patient is eligible for one of [facility]'s Care Compass Programs (Care Coordination/Population Health), but we have been unable to reach them. If patient expresses interest or has questions, please have the patient contact our Extruder Operator at [phone] for more information. Problem Noted Date Diagnosed [...] 1 year. 07/20/11:Pap--ASCUS, +HR HPV 70. Plan [place] - . In HM, ep, prob list, hx updated. 08/30/11: KIANNA 2 on colpo. Pap--ASC-H. RACE BOARD ATTENDANT referral made. LEEP scheduled for 10/11/11. Reminder in [facility]. LEEP 10/17--KIANNA 1-2 with clear margins; Pap in 6 months x 2. Then Yearly Paps until 2030. Reminder placed in [facility]. 05/08/12:ASCUS, -HPV. Repeat pap @ [...] PM CDT Legal Sex Female 5:01 AM PLANT SENIOR MANAGER Gender Identity Female 08/05/2022 7:33 PM CDT Sexual Orientation Straight 07/06/2023 2: 02 PM CDT Last Filed Vital Signs Vital Sign Reading Time Taken Comments Blood Pressure 134/84 10/06/2023 2:36 PM PLANT SENIOR MANAGER Pulse 80 10/06/2023 2:36 PM PLANT SENIOR MANAGER Temperature 36.9 C (98.4 F) 10/06/2023 2:36 PM PLANT SENIOR MANAGER Respiratory Rate 12 10/06/2023 2:36 PM PLANT SENIOR MANAGER Oxygen Saturation 98% 10/06/2023 2:36 PM PLANT SENIOR MANAGER Inhaled Oxygen Concentration - - Weight 83 kg (183 lb) 10/06/2023 2:36 PM PLANT SENIOR MANAGER Height 171.5 cm (5' 7.5) 10/06/2023 2:36 PM PLANT SENIOR MANAGER Body Mass Index 28.24 10/06/2023 2:36 PM PLANT SENIOR MANAGER Plan of Treatment Not on file Procedures Procedure Name Priority Date/Time Associated Diagnosis Comments HCV ANTIBODY ([facility]) Routine 10/06/2023 3:26 PM PLANT SENIOR MANAGER Screening for STDs (sexually transmitted diseases) RACE BOARD ATTENDANT PAP/APTIMA HPV W/REFLEX TO HPV GENOTYPES ([facility]) Routine 10/06/2023 3:26 PM PLANT SENIOR MANAGER Screening for cervical cancer from Last 3 Months or Most Recently Relevant to Health Maintenance Results * RACE BOARD ATTENDANT PAP/APTIMA HPV W/REFLEX TO HPV GENOTYPES ([facility]) (10/06/2023 3:26 PM PLANT SENIOR MANAGER) Diagnosis: ([facility]) Comment 03/2023 9:06 PM PLANT SENIOR MANAGER [facility] Comment: NEGATIVE FOR INTRAEPITHELIAL LESION OR MALIGNANCY. THIS SPECIMEN WAS RESCREENED PART OF OUR AIR BRAKE OPERATOR PROGRAM. Specimen Adequacy: ([facility]) Comment 10/11/2023 9:06 PM PLANT SENIOR MANAGER [facility] Comment: Satisfactory for evaluation. Endocervical and/or squamous metaplastic cells (endocervical component) are present. Clinician Provided ICD10: ([facility]) Comment 10/11/2023 9:06 PM PLANT SENIOR MANAGER [facility] Comment: Z12.4 Performed by: Comment 10/11/2023 9:06 PM PLANT SENIOR MANAGER [facility] Comment: Rodrigo Hackett Sr, Professor Of Journalism ([facility]) QC Reviewed by: ([facility]) Comment 10/11/2023 9:06 PM PLANT SENIOR MANAGER [facility] Comment: Saran Sauceda, Professor Of Journalism ([facility]) Cyto Comments ([facility]) . 10/11/2023 9:06 PM PLANT SENIOR MANAGER [facility] Note: ([facility]) Comment 9:06 PM PLANT SENIOR MANAGER [facility] Comment: The Pap smear is a screening test designed to aid in the detection of premalignant and malignant conditions of the uterine cervix. It is not a diagnostic procedure and should not be used as the sole means of detecting cervical cancer. Both false-positive and false-negative reports do occur. HPV Aptima ([facility]) Negative Negative 03/2023 9:06 PM PLANT SENIOR MANAGER [facility] Comment: This nucleic acid amplification test detects fourteen high-risk HPV types (16,18,31,33,35,39,45,51,52,56,58,59,66,68) without differentiation. HPV Genotype Reflex ([facility]) Comment 10/11/2023 9:06 PM PLANT SENIOR MANAGER [facility] Comment: Criteria not met, HPV Genotype not performed. Test Methodology ([facility]) Comment 10/11/2023 9:06 PM PLANT SENIOR MANAGER [facility] Comment: This liquid based ThinPrep(R) pap test was screened with the use of an image guided system. Pap 10/06/2023 3:26 PM PLANT SENIOR MANAGER 10/06/2023 3:26 PM PLANT SENIOR MANAGER Narrative [facility] - 10/11/2023 9:06 PM PLANT SENIOR MANAGER Specimen Comment: [id number] Specimen Comment: Source.............Cervix Specimen Comment: LMP / Prev Treat...None Specimen Comment: Dates / Results....LEEP AT AGE 21 Specimen Comment: No. of containers..01 ThinPrep Vial Performed at: 01 - [facility] [address] [facility] [address], [place] [id number] Senior Benefits Specialist: Corinne Mckeon MD, Phone: [phone] Performed at: 02 - [address] [id number] Senior Benefits Specialist: Antoine Bartlett MD, Phone: [phone] Performed at: 03 - [address] [id number] Senior Benefits Specialist: Micheal Bartlett MD, Phone: [phone] us Renee Nieto PA-C [facility] ORDER[facility] Final Re sult [facility] [address] [place] [address] * HCV ANTIBODY ([facility]) (10/06/2023 3:26 PM PLANT SENIOR MANAGER) Hepatitis C Virus Antibody ([facility]) Non Reactive Non Reactive 10/08/2023 8:09 AM PLANT SENIOR MANAGER [facility] Comment: HCV antibody alone does not differentiate between previously resolved infection and active infection. Equivocal and Reactive HCV antibody results should be followed up with an HCV RNA test to support the diagnosis of active HCV infection. Blood Venipuncture / Unknown 10/06/2023 3:26 PM PLANT SENIOR MANAGER 10/06/2023 3:26 PM PLANT SENIOR MANAGER Narrative [facility] - 10/08/2023 8:09 AM PLANT SENIOR MANAGER [facility]formed at: [facility] [place], [place] [id number] Senior Benefits Specialist: Zia Navarrete MD, Phone: [phone] us Renee Nieto PA-C [facility] ORDERABLES Final Re sult [facility] [address] [place] [address] from Last 3 Months or Most Recently Relevant to Health Maintenance Insurance [facility] PMAP/MNCARE Care Teams Exerciser Relationship Specialty Start Date End Date Renee Nieto PA-C PCP - General Family Medicine 02/28/24
--- OUTSIDE RECORDS SUMMARY | 2025-02-20 18:27 | XMS_ITS | Clinical Summary ---
Author Organization [facility] Address [address] [place] [address] Care Team Providers Care Water Leak Repairer Name Role Phone None, Provided Primary Care Provider Unavailabl e Allergies Active Allergy Reactions Criticality Noted Date Comments Amoxicillin Other - Describe In Comment Field 05/04/2021 States that she gets a yeast infection Latex Rash 05/04/2021 Medications NORGESTIMATE-ETH INYL ESTRADIOL (TRINESSA, 28, ORAL) Take by mouth. Active Social History Tobacco Use Types Packs/Day Years Used Date Smoking Tobacco: Every Day Cigarettes 1 12 Smokeless Tobacco: Never Comments:reports 1ppd since 12/21, prior to that 11/08 Alcohol Use Standard Drinks/Week Comments Not Asked 0 (1 standard drink = 0.6 oz pur e alcohol) beer once in a while Interpersonal Safety Answer Date Record ed Are you being hit, kicked, p ushed or yelled at (see row info)? No 04/27/2024 Interpersonal Safety Abuse 12 - 18 Not on file 04/27/2024 Interpersonal Safety Ambulatory Vulnerability No t on file 04/27/2024 Comments No Sex and Gender Information Value Date Recorded Sex Assigned at Not on file Legal Sex Female 5:19 AM ARCHITECTURE CONSULTANT Gender Identity Not on file Sexual Orientation Not on file Obstetrics History Last Filed Vital Signs Vital Sign Reading Time Taken Comments Blood Pressure 144/100 04/27/2024 1:00 PM CDT Pulse 70 04/27/2024 1:00 PM CDT Temperature 37.1 C (98.8 F) 04/27/2024 10:27 AM CDT Respiratory Rate 16 04/27/2024 10:27 AM CDT Oxygen Saturation 100% 04/27/2024 1:00 PM CDT Inhaled Oxygen Concentration - - Weight 83.9 kg (185 lb) 04/27/2024 10:27 AM CDT Height 172.7 cm (5' 8) 04/27/2024 10:27 AM CDT Body Mass Index 28.13 04/27/2024 10:27 AM CDT Plan of Treatment Health Maintenance Due Date Last Done Comments Tdap 2001 Depression screening for age 12+ 2002 HIV for age 15-65 2005 BMI (ht and wt on same day) for age 18+ 2008 Hepatitis C screening for ag e 18-79 2008 Tetanus booster 2010 Pap test for age 21-65 2011 COVID-19 vaccine series (2023- season) 2024 Influenza Vaccine (Season Ended) 2025 Pneumococcal series for age 6-49 Aged Out No longer eligible based on patient's age to complete this topic Insurance [employer] Member Subscriber Plan / Payer (Ef fective 2023-Present) Name:Jaky Monge Relation to Subscriber:Self Name:Jaky Monge Payer ID:[id number] (NAIC) Group ID:[id number] Type:Not on file Address: [address] [place] Advance Directives * Full Code (Latest Code Status on File) Date Activated Date Inactivated Comments 06/14/2014 11:27 PM 06/16/2014 9:04 PM Care Teams Water Leak Repairer Relationship Specialty Start Date End Date None, Provided . PCP - General 10/26/07
== END 2025-02-20 19:22 | disposition home or self-care (01) ==
PROVIDERS: Emergency Provider Emergency Medicine Emergency Medical Services
DX: O10.919 Unspecified pre-existing hypertension complicating pregnancy, unspecified trimester (principal); Z3A.00 Weeks of gestation of pregnancy not specified
CPT/HCPCS: 36415; 80048; 80076; 84702; 85025; 99283; 99284

== ENCOUNTER 2025-02-28 07:09 | Outpatient (CLI) | payer BC, SELFPAY ==
--- NOTE | 2025-02-28 07:15 | CRLHL7_ITS ---
For Patients: As a result of the Cures Act, medical imaging exams and procedure reports are released immediately into your electronic medical record. You may view this report before your referring provider. If you have questions, please contact your health care provider. OB ULTRASOUND FIRST TRIMESTER INDICATION: Dating and viability. TECHNIQUE: Real time kirkpatrick scale imaging of the fetus was performed. Transvaginal. LMP: 12/22/2024. LIA by LMP: 09/28/2025. GA: 9 w, 5 d. CRL: 2 cm. 8 w 4 d. LIA: 10/06/2025. FHR: 178 BPM. Gestational sac: 2.9 cm. Appears within normal limits. Yolk sac: 4.3 mm. Appears within normal limits. Right ovary: Within normal limits. 3.1 x 1 x 1.8 cm. Left ovary: Within normal limits. 3.9 x 2 x 3 cm. CL. IMPRESSION: 1. Single living intrauterine with sonographic gestational age 8 weeks 4 days and sonographic due date 10/06/2025. 2. Subchorionic hemorrhage measures 1.1 x 1.0 x 0.8 cm. Trever Groves M.D. Diagnostic Radiologist [email or web address] ALYSE/naomie JR/Dictated by: Trever Groves MD @ 02/28/2025 9:05:00 AM (Electronically Signed)
== END 2025-02-28 07:10 | disposition home or self-care (01) ==
PROVIDERS: Visit Provider Advanced Practice Midwife
DX: Z34.91 Encounter for supervision of normal pregnancy, unspecified, first trimester (principal); O20.9 Hemorrhage in early pregnancy, unspecified; Z3A.09 9 weeks gestation of pregnancy
CPT/HCPCS: 76817; 80306; 82565; 82570; 83021; 84156; 84450; 84460; 84520; 85660; 86592; 86703; 86704; 86706; 86762; 86787; 86803; 86850; 86900; 86901; 87086; 87340; 87491; 87591

== ENCOUNTER 2025-03-20 12:40 | Emergency (ER) | payer BC, SELFPAY ==
[2025-03-20] VITALS (13 sets, daily range): BP systolic 123–177; BP diastolic 93–107; PULSE 70–79; RESP 11–22; TEMP 36.8; O2SAT 98; BMI 30.3
--- OUTSIDE RECORDS SUMMARY | 2025-03-20 12:42 | XMS_ITS | Referral Summary ---
Author Organization [facility] Address [address] [place] [address] [place] [address] Care Team Providers Care Liberal Arts Dean Name Role Phone Renee Nieto PA-C Primary Care Provider [phone] Allergies Active Allergy Reactions Criticality Noted Date [...] original. Patient is eligible for one of [facility]'s Care Compass Programs (Care Coordination/Population Health), but we have been unable to reach them. If patient expresses interest or has questions, please have the patient contact our Network Director at [phone] for more information. Problem Noted Date Diagnosed Date Genital herpes simplex, unspecified site 024 BV (bacterial vaginosis), recurrent 02/29/2024 History of cervical dysplasia 07/13/2023 Marijuana smoker 07/13/2023 Vitamin D insufficiency--recheck level in [facility] er 2021. 08/06/2022 Major depressive [...] 1 year. 07/20/11:Pap--ASCUS, +HR HPV 70. Plan [place] - . In HM, ep, prob list, hx updated. 08/30/11: KIANNA 2 on colpo. Pap--ASC-H. PROFESSOR OF FINE ART referral made. LEEP scheduled for 10/11/11. Reminder in [facility]. LEEP 10/17--KIANNA 1-2 with clear margins; Pap in 6 months x 2. Then Yearly Paps until 2030. Reminder placed in [facility]. 05/08/12:ASCUS, -HPV. Repeat pap @ Annual Physical Exam in 10/2012 (per Provider). Reminder placed in EPIC 12/07/12: Patient failed follow-up. Pap tracking file closed. 02/13/13:Pap--NIL. Pap 1 year. 11/11/14:Pap--NIL, neg HPV. Pap + HPV cotesting in 1 year. 08/05/17 Pap: NIL/neg HPV. Immunizations Immunization Administration Dates Next Due HPV Quadrivalent 12/27/2007,08/16/2007, 7 HPV9 12/27/2007,08/16/2007,03/08/2007 Hep A Immune Globulin 03/12/2009 Hep B Pediatric 06/28/2003,11/26/2002,06/26/2002 MMR 06/26/2002 Meningococcal MCV4P 03/28/2008 Pneumococcal PPSV23 03/12/2009 Td adult absorbed PF (2 Lf) 06/26/2002 Tdap 02/03/2022 Social History Tobacco Use Types Packs/Day Years Used Date Smoking Tobacco: Every Day Cigarettes 0.5 23.4 Started: 2001 Smokeless Tobacco: Never Tobacco Cessation:Ready [...] PM CDT Legal Sex Female 5:01 AM CORE CHECKER Gender Identity Female 08/05/2022 7:33 PM CDT Sexual Orientation Straight 07/06/2023 2: 02 PM CDT Last Filed Vital Signs Vital Sign Reading Time Taken Comments Blood Pressure 134/84 10/06/2023 2:36 PM CORE CHECKER Pulse 80 10/06/2023 2:36 PM CORE CHECKER Temperature 36.9 C (98.4 F) 10/06/2023 2:36 PM CORE CHECKER Respiratory Rate 12 10/06/2023 2:36 PM CORE CHECKER Oxygen Saturation 98% 10/06/2023 2:36 PM CORE CHECKER Inhaled Oxygen Concentration - - Weight 83 kg (183 lb) 10/06/2023 2:36 PM CORE CHECKER Height 171.5 cm (5' 7.5) 10/06/2023 2:36 PM CORE CHECKER Body Mass Index 28.24 10/06/2023 2:36 PM CORE CHECKER Plan of Treatment Not on file Procedures Procedure Name Priority Date/Time Associated Diagnosis Comments HCV ANTIBODY ([facility]) Routine 10/06/2023 3:26 PM CORE CHECKER Screening for STDs (sexually transmitted diseases) PROFESSOR OF FINE ART PAP/APTIMA HPV W/REFLEX TO HPV GENOTYPES ([facility]) Routine 10/06/2023 3:26 PM CORE CHECKER Screening for cervical cancer from Last 3 Months or Most Recently Relevant to Health Maintenance Results * PROFESSOR OF FINE ART PAP/APTIMA HPV W/REFLEX TO HPV GENOTYPES ([facility]) (10/06/2023 3:26 PM CORE CHECKER) Diagnosis: ([facility]) Comment 03/2023 9:06 PM CORE CHECKER [facility] Comment: NEGATIVE FOR INTRAEPITHELIAL LESION OR MALIGNANCY. THIS SPECIMEN WAS RESCREENED PART OF OUR CURTAIN DRIER PROGRAM. Specimen Adequacy: ([facility]) Comment 10/11/2023 9:06 PM CORE CHECKER [facility] Comment: Satisfactory for evaluation. Endocervical and/or squamous metaplastic cells (endocervical component) are present. Clinician Provided ICD10: ([facility]) Comment 10/11/2023 9:06 PM CORE CHECKER [facility] Comment: Z12.4 Performed by: Comment 10/11/2023 9:06 PM CORE CHECKER [facility] Comment: Rodrigo Hackett Sr, Roll On Man (ASCP) QC Reviewed by: ([facility]) Comment 10/11/2023 9:06 PM CORE CHECKER [facility] Comment: Saran Sauceda, Roll On Man (ASC) Cyto Comments ([facility]) . 10/11/2023 9:06 PM CORE CHECKER [facility] Note: ([facility]) Comment 9:06 PM CORE CHECKER [facility] Comment: The Pap smear is a screening test designed to aid in the detection of premalignant and malignant conditions of the uterine cervix. It is not a diagnostic procedure and should not be used as the sole means of detecting cervical cancer. Both false-positive and false-negative reports do occur. HPV Aptima ([facility]) Negative Negative 03/2023 9:06 PM CORE CHECKER [facility] Comment: This nucleic acid amplification test detects fourteen high-risk HPV types (16,18,31,33,35,39,45,51,52,56,58,59,66,68) without differentiation. HPV Genotype Reflex ([facility]) Comment 10/11/2023 9:06 PM CORE CHECKER [facility] Comment: Criteria not met, HPV Genotype not performed. Test Methodology ([facility]) Comment 10/11/2023 9:06 PM CORE CHECKER [facility] Comment: This liquid based ThinPrep(R) pap test was screened with the use of an image guided system. Pap 10/06/2023 3:26 PM CORE CHECKER 10/06/2023 3:26 PM CORE CHECKER Narrative [facility] - 10/11/2023 9:06 PM CORE CHECKER Specimen Comment: [id number] Specimen Comment: Source.............Cervix Specimen Comment: LMP / Prev Treat...None Specimen Comment: Dates / Results....LEEP AT AGE 21 Specimen Comment: No. of containers..01 ThinPrep Vial Performed at: 01 - [facility] [address] [facility] [address], [place] [id number] Dental Assisting Instructor: Corinne Mckeon MD, Phone: [phone] Performed at: 02 - [address] [id number] Dental Assisting Instructor: Antoine Bartlett MD, Phone: [phone] Performed at: 03 - [address] [id number] Dental Assisting Instructor: Micheal Bartlett MD, Phone: [phone] us Renee Nieto PA-C [facility] ORDER[facility]LES Final Re sult [facility] [address] [place] [address] * HCV ANTIBODY ([facility]) (10/06/2023 3:26 PM CORE CHECKER) Hepatitis C Virus Antibody ([facility]) Non Reactive Non Reactive 10/08/2023 8:09 AM CORE CHECKER [facility] Comment: HCV antibody alone does not differentiate between previously resolved infection and active infection. Equivocal and Reactive HCV antibody results should be followed up with an HCV RNA test to support the diagnosis of active HCV infection. Blood Venipuncture / Unknown 10/06/2023 3:26 PM CORE CHECKER 10/06/2023 3:26 PM CORE CHECKER Narrative [facility] - 10/08/2023 8:09 AM CORE CHECKER [facility]formed at: [facility] [employer] [place], [place] [id number] Dental Assisting Instructor: Zia Navarrete MD, Phone: [phone] us Renee Nieto PA-C [facility] ORDERABLES Final Re sult [facility] [address] [place] [address] from Last 3 Months or Most Recently Relevant to Health Maintenance Insurance [facility] PMAP/MNCARE Care Teams Liberal Arts Dean Relationship Specialty Start Date End Date Renee Nieto PA-C PCP - General Family Medicine 02/28/24
--- OUTSIDE RECORDS SUMMARY | 2025-03-20 12:42 | XMS_ITS | Clinical Summary ---
Author Organization [facility] Address [address] [place] [address] Care Team Providers Care Systems Testing Laboratory Technician Name Role Phone None, Provided Primary Care [...] on file Legal Sex Female 5:19 AM RAILROAD FIRER Gender Identity Not on file Sexual Orientation [...] patient's age to complete this topic Insurance [facility] Member Subscriber Plan / Payer (Ef fective 2023-Present) Name:Jaky Monge Relation to Subscriber:Self Name:Jaky Monge Payer ID:[id number] (NAIC) Group ID:[id number] Type:Not on file Address: [address] [place] Advance Directives * Full Code (Latest Code Status on File) Date Activated Date Inactivated Comments 06/14/2014 11:27 PM 06/16/2014 9:04 PM Care Teams Systems Testing Laboratory Technician Relationship Specialty Start Date End Date None, Provided . PCP - General 10/26/07
--- OUTSIDE RECORDS SUMMARY | 2025-03-20 12:43 | XMS_ITS | Patient Health Record ---
Author Organization [facility] Address [address] [place] [address] Care Team Providers Care Sales Specialist Name Role Phone None, None Primary Care Provider UnavailDIANELYS Celaya Unavailable [phone] Darcy Funez Unavailable Unavailable Rita Aguilar Unavailable [phone] Allergies Allergen (clinical drug ingredient) Drug/Non Drug [...] Diagnosis [facility] [place] [address] [place] [address] 05/15/2024 DIANELYS CLARKE Perforation of left tympanic membrane H72.92 and Allergic rhinitis, unspecified seasonality, unspecified trigger J30.9 [facility] [place] [address] [place] [address] 05/15/2024 Rita Aguilar Perforation of left tympanic [...] Start Date Coverage End Date Gabino Ventura [place] [address] [address] [address] [place] [address] [id number] Jaky Reyes Self - patient is the insured Medical (General) History Medical History History ICD Code Anxiety Depression Autoimmune disorder Hypertension Cervical cancer Surgical History Surgery Date(Month/Year) [place] teeth
--- OUTSIDE RECORDS SUMMARY | 2025-03-20 12:43 | XMS_ITS | Clinical Summary ---
Author Organization [facility] Address [address] [place] [address] [place] [address] Care Team Providers Care Director Operations Broadcast Name Role Phone Renee Nieto PA-C Primary Care Provider [phone] Allergies Active Allergy Reactions Criticality Noted Date [...] original. Patient is eligible for one of [facility]'s Care Compass Programs (Care Coordination/Population Health), but we have been unable to reach them. If patient expresses interest or has questions, please have the patient contact our Telecommunications Network Engineer at [phone] for more information. Problem Noted Date Diagnosed Date Genital herpes simplex, unspecified site 024 BV (bacterial vaginosis), recurrent 02/29/2024 History of cervical dysplasia 07/13/2023 Marijuana smoker 07/13/2023 Vitamin D insufficiency--recheck level in [facility] er 2021. 08/06/2022 Major depressive disorder [...] 1 year. 07/20/11:Pap--ASCUS, +HR HPV 70. Plan [place] - . In HM, ep, prob list, hx updated. 08/30/11: KIANNA 2 on colpo. Pap--ASC-H. GRIP referral made. LEEP scheduled for 10/11/11. Reminder in [facility]. LEEP 10/17--KIANNA 1-2 with clear margins; Pap in 6 months x 2. Then Yearly Paps until 2030. Reminder placed in [facility]. 05/08/12:ASCUS, -HPV. Repeat pap @ Annual Physical [...] 02/03/2022 Family History Medical History Relation Comments Brain/MOSAIC TILE MAKER Cancer Father Heart Disease Father Lung Cancer [...] PM CDT Legal Sex Female 5:01 AM CRUTCHING CONTRACTOR Gender Identity Female 08/05/2022 7:33 PM CDT Sexual Orientation Straight 07/06/2023 2: 02 PM CDT Last Filed Vital Signs Vital Sign Reading Time Taken Comments Blood Pressure 134/84 10/06/2023 2:36 PM CRUTCHING CONTRACTOR Pulse 80 10/06/2023 2:36 PM CRUTCHING CONTRACTOR Temperature 36.9 C (98.4 F) 10/06/2023 2:36 PM CRUTCHING CONTRACTOR Respiratory Rate 12 10/06/2023 2:36 PM CRUTCHING CONTRACTOR Oxygen Saturation 98% 10/06/2023 2:36 PM CRUTCHING CONTRACTOR Inhaled Oxygen Concentration - - Weight 83 kg (183 lb) 10/06/2023 2:36 PM CRUTCHING CONTRACTOR Height 171.5 cm (5' 7.5) 10/06/2023 2:36 PM CRUTCHING CONTRACTOR Body Mass Index 28.24 10/06/2023 2:36 PM CRUTCHING CONTRACTOR Plan of Treatment Health Maintenance Due Date [...] HCV ANTIBODY ([facility]) Routine 10/06/2023 3:26 PM CRUTCHING CONTRACTOR Screening for STDs (sexually transmitted diseases) GRIP PAP/APTIMA HPV W/REFLEX TO HPV GENOTYPES ([facility]) Routine 10/06/2023 3:26 PM CRUTCHING CONTRACTOR Screening for cervical cancer from Last 3 Months or Most Recently Relevant to Health Maintenance Results * GRIP PAP/APTIMA HPV W/REFLEX TO HPV GENOTYPES ([facility]) (10/06/2023 3:26 PM CRUTCHING CONTRACTOR) Diagnosis: ([facility]) Comment 03/2023 9:06 PM CRUTCHING CONTRACTOR [facility] Comment: NEGATIVE FOR INTRAEPITHELIAL LESION OR MALIGNANCY. THIS SPECIMEN WAS RESCREENED PART OF OUR CORRECTIONAL GUARD PROGRAM. Specimen Adequacy: ([facility]) Comment 10/11/2023 9:06 PM CRUTCHING CONTRACTOR [facility] Comment: Satisfactory for evaluation. Endocervical and/or squamous metaplastic cells (endocervical component) are present. Clinician Provided ICD10: ([facility]) Comment 10/11/2023 9:06 PM CRUTCHING CONTRACTOR [facility] Comment: Z12.4 Performed by: Comment 10/11/2023 9:06 PM CRUTCHING CONTRACTOR [facility] Comment: Rodrigo Hackett Sr, Can Filling Room Sweeper ([facility]) QC Reviewed by: ([facility]) Comment 10/11/2023 9:06 PM [facility] Comment: Saran Sauceda, Can Filling Room Sweeper ([facility]) Cyto Comments [facility]) . 10/11/2023 9:06 PM CRUTCHING CONTRACTOR [facility] Note: ([facility]) Comment 9:06 PM [facility] Comment: The Pap smear is a screening test designed to aid in the detection of premalignant and malignant conditions of the uterine cervix. It is not a diagnostic procedure and should not be used as the sole means of detecting cervical cancer. Both false-positive and false-negative reports do occur. HPV Aptima ([facility]) Negative Negative 03/2023 9:06 PM [facility] Comment: This nucleic acid amplification test detects fourteen high-risk HPV types (16,18,31,33,35,39,45,51,52,56,58,59,66,68) without differentiation. HPV Genotype Reflex ([facility]) Comment 10/11/2023 9:06 PM [facility] Comment: Criteria not met, HPV Genotype not performed. Test Methodology ([facility]) Comment 10/11/2023 9:06 PM [facility] Comment: This liquid based ThinPrep(R) pap test was screened with the use of an image guided system. Pap 10/06/2023 3:26 PM CRUTCHING CONTRACTOR 10/06/2023 3:26 PM [facility] hospital - 10/11/2023 9:06 PM [facility] Specimen Comment: [id number] Specimen Comment: Source.............Cervix Specimen Comment: LMP / Prev Treat...None Specimen Comment: Dates / Results....LEEP AT AGE 21 Specimen Comment: No. of containers..01 ThinPrep Vial Performed at: 01 - [facility] [place] [address] [id number] Resident Advisor: Corinne Mckeon MD, Phone: [phone] Performed at: - [facility] [place] [address] [facility] [address] [place] [id number] Resident Advisor: Antoine Bartlett MD, Phone: [phone] Performed at: 03 - [facility] [place] [address] [id number] Resident Advisor: Micheal Bartlett MD, Phone: [phone] Renee Nieto PA-C [facility] ORDERABLES Final Re sult Performing Organization Address [facility]/ZIP Co de Phone Number [facility] [address] [place] [address] * HCV ANTIBODY ([facility]) (10/06/2023 3:26 PM CRUTCHING CONTRACTOR) [facility] Hepatitis C Virus Antibody ([facility]) Non Reactive Non Reactive 10/08/2023 8:09 AM CRUTCHING CONTRACTOR [facility] Comment: HCV antibody alone does not differentiate between previously resolved infection and active infection. Equivocal and Reactive HCV antibody results should be followed up with an HCV RNA test to support the diagnosis of active HCV infection. Blood Venipuncture / Unknown 10/06/2023 3:26 PM CRUTCHING CONTRACTOR 10/06/2023 3:26 PM CRUTCHING CONTRACTOR Narrative [facility] - 10/08/2023 8:09 AM CRUTCHING CONTRACTOR Performed at: - [facility] [address] [id number] Resident Advisor: Zia Navarrete MD, Phone: [phone] us Renee Nieto PA-C [facility] ORDERABLES Final Re sult Performing Organization Address City/[facility]/ZIP Co de Phone Number [facility] [address] [place] [address] from Last 3 Months or Most Recently Relevant to Health Maintenance [place] [address] [address] [place] [address] PMAP/MNCARE Care Teams Director Operations Broadcast Relationship Specialty Start Date End Date Renee Nieto PA-C PCP - General Family Medicine 02/28/24
--- OUTSIDE RECORDS SUMMARY | 2025-03-20 12:43 | XMS_ITS ---
Author Organization [facility] Address [address] [place] [address] Care Team Providers Care Manager Psychology Name Role Phone None, None Primary Care Provider UnavailDIANELYS Celaya Unavailable [phone] Darcy Funez Unavailable Unavailable Allergies Allergen (clinical [...] Diagnosis [facility] [place] [address] [place] [address] 05/15/2024 DIANELYS GALAVIZ Perforation of left tympanic [...] * Reyna MONGEOB: 0 (34 yo F)Acc No.[id number]:05/15/2024 Patient: Jaky Peterson Provider: Danilo Galaviz PA-C :1990 A ge:34 Y S ex:Female Date:05/15/2024 Address:[address] [id number] Subjective: * Chief Complaints: * N ew [...] cancer Medical History Verified * Surgical History: [place] teeth Surgical History verified. * Hospitalization/Major Diagno [...] to improve. * Preventive Medicine: MIPS: B IL Above Normal BMI Follow-up D ietary management education, guidance, and counseling T obacco Counseling: Patient counselled on the dangers of tobacco use and urged to quit. 0 05/15/2024 * Follow Up: p rn * Electronic signature of SARAH BRAY on 03/20/2025 at 12:42 PM CDT Sign off status: Pending * Provider: Danilo Galaviz PA-C Date: 0 05/15/2024 Generated for Pravin ventura/Rupa/Hienitting on: 0 03/20/2025 12:42 PM CDT
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
[2025-03-20 13:46] LABS: Appearance Urine Slightly Cloudy (Clear); Bilirubin Urine Negative (Negative); Blood Urine Negative (Negative); Color Urine Yellow (Yellow); Glucose Urine Negative (Negative); Ketones Urine Negative (Negative); Leukocyte Esterase Urine Negative (Negative); Nitrite Urine Negative (Negative); Protein Urine Negative (Negative); Specific Gravity Urine 1.015 (1.000-1.030); Urobilinogen Urine 0.2 (0.2-1.0); pH Urine 7.5 (5.0-8.5)
[2025-03-20 13:55] LABS: Basophils Absolute Auto 0.01 K/uL (0.00-0.30); Basophils Percent Auto 0.1 % (0.0-3.0); Eosinophils Absolute Auto 0.12 K/uL (0.00-0.50); Eosinophils Percent Auto 1.2 % (0.0-7.0); Hematocrit 39.9 % (33.0-51.0); Hemoglobin* 13.4 gm/dL (12.0-16.0); Immature Granulocytes Abs Auto 0.02 K/uL (0.00-0.30); Immature Granulocytes Pct Auto 0.2 %; Lymphocytes Percent Auto 19.7 % (20-44); Mean Corpuscular HGB Conc 34 gm/dL (32-36); Mean Corpuscular Hemoglobin 31 pg (26-34); Mean Corpuscular Volume 92 fL (80-100); Monocytes Percent Auto 5.6 % (0.0-11.0); Neutrophils Percent Auto 73.2 % (42.0-72.0); Platelet Count* 285 K/uL (140-440); RDW Coefficient of Variation % 12.4 % (11.5-15.5); Red Blood Count 4.33 m/uL (4.00-5.20); White Blood Count* 9.86 K/uL (4.50-11.00)
[2025-03-20 14:05] LABS: Slide Review Reflex No
[2025-03-20 14:09] LABS: RBC Urine 0-2 (0-2); WBC Urine 0-2 (0-5)
[2025-03-20 14:10] LABS: Amorphous Sediment Urine Moderate; Bacteria Urine Few; Squamous Epithelial Cell Urine Many (None-Few)
[2025-03-20 14:14] LABS: Albumin* 4.4 g/dL (3.3-5.0); Chloride* 100 mmol/L (96-114)
[2025-03-20 14:15] LABS: Potassium* 3.3 mmol/L (3.6-5.1); Sodium* 134 mmol/L (135-149)
[2025-03-20 14:17] LABS: Alanine Aminotransferase* 10 U/L (4-35); Alkaline Phosphatase* 47 U/L (40-150); Anion Gap 7 mEq/L (7-15); Aspartate Amino Transferase* 21 U/L (12-35); Bilirubin Direct* 0.2 mg/dL (0.0-0.5); Bilirubin Total* 0.5 mg/dL (0.1-1.5); Blood Urea Nitrogen* 9 mg/dL (5-24); Carbon Dioxide* 27 mmol/L (20-32); Creatinine* 0.5 mg/dL (0.5-1.5); Est. Creatinine Clearance* 159.93; Estimated Glomerular Filt Rate 126 ml/min; Total Protein* 7.2 g/dL (6.0-8.3)
[2025-03-20 14:18] LABS: Calcium* 8.8 mg/dL (8.4-10.6); Glucose* 77 mg/dL (60-115); Lactate Dehydrogenase* 178 U/L (120-246); Magnesium* 1.7 mg/dL (1.5-2.6)
[2025-03-20] MEDS: 0.9 % SODIUM CHLORIDE 1000 ml 1,000 ML IV (14:18)
[2025-03-20] MEDS: ONDANSETRON 2 MG/ML inj 4 MG IVP (14:21)
--- OUTSIDE RECORDS SUMMARY | 2025-03-20 14:27 | XMS_ITS | Clinical Summary ---
Author Organization [facility] Address [address] [place] [id number] Care Team Providers Care Sealant Mixer Name Role Phone None, Provided Primary Care [...] on file Legal Sex Female 5:19 AM SOFTWARE SUPPORT ENGINEER Gender Identity Not on file Sexual Orientation [...] patient's age to complete this topic Insurance [facility] Member Subscriber Plan / Payer (Ef fective 2023-Present) Name:Jaky Monge Relation to Subscriber:Self Name:Jaky Monge Payer ID:[id number] (NAIC) Group ID:[id number] Type:Not on file Address: [address] [place] Advance Directives * Full Code (Latest Code Status on File) Date Activated Date Inactivated Comments 06/14/2014 11:27 PM 06/16/2014 9:04 PM Care Teams Sealant Mixer Relationship Specialty Start Date End Date None, Provided . PCP - General 10/26/07
--- OUTSIDE RECORDS SUMMARY | 2025-03-20 14:27 | XMS_ITS | Referral Summary ---
Author Organization [facility] Address [address] [place] [address] [place] [address] Care Team Providers Care Coater Slate Name Role Phone Renee Nieto PA-C Primary Care Provider [phone] Allergies Active Allergy Reactions Criticality Noted Date [...] original. Patient is eligible for one of [facility]'s Care Compass Programs (Care Coordination/Population Health), but we have been unable to reach them. If patient expresses interest or has questions, please have the patient contact our Elementary Education Tutor at [phone] for more information. Problem Noted Date Diagnosed Date Genital herpes simplex, unspecified site 024 BV (bacterial vaginosis), recurrent 02/29/2024 History of cervical dysplasia 07/13/2023 Marijuana smoker 07/13/2023 Vitamin D insufficiency--recheck level in [facility] er 2021. 08/06/2022 Major depressive disorder [...] 1 year. 07/20/11:Pap--ASCUS, +HR HPV 70. Plan [employer] - . In [facility], ep, prob list, hx updated. 08/30/11: KIANNA 2 on colpo. Pap--ASC-H. WIND POWER PROJECT MANAGER referral made. LEEP scheduled for 10/11/11. Reminder in [facility]. LEEP 10/17--KIANNA 1-2 with clear margins; Pap in 6 months x 2. Then Yearly Paps until 2030. Reminder placed in [facility]. 05/08/12:ASCUS, -HPV. Repeat pap @ [...] PM CDT Legal Sex Female 5:[address]ICE OFFICER Gender Identity Female 08/05/2022 7:33 PM CDT Sexual Orientation Straight 07/06/2023 2: 02 PM CDT Last Filed Vital Signs Vital Sign Reading Time Taken Comments Blood Pressure 134/84 10/06/2023 2:[address]ICER Pulse 80 10/06/2023 2:[address]ICER Temperature 36.9 C (98.4 F) 10/06/2023 2:[address]ICER Respiratory Rate 12 10/06/2023 2:[address]ICER Oxygen Saturation 98% 10/06/2023 2:[address]ICER Inhaled Oxygen Concentration - - Weight 83 kg (183 lb) 10/06/2023 2:[address]ICE [address]ICER Height 171.5 cm (5' 7.5) 10/06/2023 2:[address]ICER Body Mass Index 28.24 10/06/2023 2:[address]ICER Plan of Treatment Not on file Procedures Procedure Name Priority Date/Time Associated Diagnosis Comments HCV ANTIBODY ([facility]) Routine 10/06/2023 3:[address]ICER Screening for STDs (sexually transmitted diseases) WIND POWER PROJECT MANAGER PAP/APTIMA HPV W/REFLEX TO HPV GENOTYPES ([facility]) Routine 10/06/2023 3:[address]ICER Screening for cervical cancer from Last 3 Months or Most Recently Relevant to Health Maintenance Results * WIND POWER PROJECT MANAGER PAP/APTIMA HPV W/REFLEX TO HPV GENOTYPES ([facility]) (10/06/2023 3:[address]ICE OFFICER) Diagnosis: ([facility]) Comment 03/2023 9:[address]ICER [facility] Comment: NEGATIVE FOR INTRAEPITHELIAL LESION OR MALIGNANCY. THIS SPECIMEN WAS RESCREENED PART OF OUR SECONDARY MARKET MANAGER PROGRAM. Specimen Adequacy: ([facility]) Comment 10/11/2023 9:[address] POLICE OFFICER [facility] Comment: Satisfactory for evaluation. Endocervical and/or squamous metaplastic cells (endocervical component) are present. Clinician Provided ICD10: ([facility]) Comment 10/11/2023 9:[address]ICE OFFICER [facility] Comment: Z12.4 Performed by: Comment 10/11/2023 9:[address]ICE OFFICER [facility] Comment: Rodrigo Hackett Sr, Corporate Strategist (ASCP) QC Reviewed by: ([facility]) Comment 10/11/2023 9:[address]ICER [facility] Comment: Saran Sauceda, Corporate Strategist (ASC) Cyto Comments ([facility]) . 10/11/2023 9:[address] OFFICER [facility] Note: ([facility]) Comment 9:[address]ICER [facility] Comment: The Pap smear is a screening test designed to aid in the detection of premalignant and malignant conditions of the uterine cervix. It is not a diagnostic procedure and should not be used as the sole means of detecting cervical cancer. Both false-positive and false-negative reports do occur. HPV Aptima ([facility]) Negative Negative 03/2023 9:[address]ICER [facility] Comment: This nucleic acid amplification test detects fourteen high-risk HPV types (16,18,31,33,35,39,45,51,52,56,58,59,66,68) without differentiation. HPV Genotype Reflex ([facility]) Comment 10/11/2023 9:[address] OFFICER [facility] Comment: Criteria not met, HPV Genotype not performed. Test Methodology ([facility]) Comment 10/11/2023 9:[address]ICE OFFICER [facility] Comment: This liquid based ThinPrep(R) pap test was screened with the use of an image guided system. Pap 10/06/2023 3:[address] POLICE OFFICER 10/06/2023 3:[address]ICE OFFICER Narrative [facility] - 10/11/2023 9:[address]ICE OFFICER Specimen Comment: [id number] Specimen Comment: Source.............Cervix Specimen Comment: LMP / Prev Treat...None Specimen Comment: Dates / Results....LEEP AT AGE 21 Specimen Comment: No. of containers..01 ThinPrep Vial Performed at: 01 - [facility] [address] [facility] [address], [place] [id number] Ditching Machine Operating Engineer: Corinne Mckeon MD, Phone: [phone] Performed at: 02 - [facility] [id number] Ditching Machine Operating Engineer: Antoine Bartlett MD, Phone: [phone] Performed at: 03 - [address] [id number] Ditching Machine Operating Engineer: Micheal Bartlett MD, Phone: [phone] us Renee Nieto PA-C [facility] ORDERABLES Final Re sult [facility] [address] [place] [address] * HCV ANTIBODY ([facility]) (10/06/2023 3:[address]ICE OFFICER) Hepatitis C Virus Antibody ([facility]) Non Reactive Non Reactive 10/08/2023 8:[address]ICE OFFICER [facility] Comment: HCV antibody alone does not differentiate between previously resolved infection and active infection. Equivocal and Reactive HCV antibody results should be followed up with an HCV RNA test to support the diagnosis of active HCV infection. Blood Venipuncture / Unknown 10/06/2023 3:[address] POLICE OFFICER 10/06/2023 3:[address]ICE OFFICER Narrative [facility] - 10/08/2023 8:[address]ICE [address]ICER Performed at: [facility] [employer] [place], [place] [id number] Ditching Machine Operating Engineer: Zia Navarrete MD, Phone: [phone] us Renee Nieto PA-C [facility] ORDERABLES Final Re sult [facility] [address] [place] [address] from Last 3 Months or Most Recently Relevant to Health Maintenance Insurance [facility] PMAP/MNCARE Care Teams Coater Slate Relationship Specialty Start Date End Date Renee Nieto PA-C PCP - General Family Medicine 02/28/24
--- OUTSIDE RECORDS SUMMARY | 2025-03-20 14:28 | XMS_ITS | Clinical Summary ---
Author Organization [facility] Address [address] [place] [address] [place] [address] Care Team Providers Care Commercial Installer Name Role Phone Renee Nieto PA-C Primary Care Provider [phone] Allergies Active Allergy Reactions Criticality Noted Date [...] original. Patient is eligible for one of [facility]'s Care Compass Programs (Care Coordination/Population Health), but we have been unable to reach them. If patient expresses interest or has questions, please have the patient contact our Tape Fastener Machine Operator at [phone] for more information. Problem Noted Date Diagnosed Date Genital herpes simplex, unspecified site 024 BV (bacterial vaginosis), recurrent 02/29/2024 History of cervical dysplasia 07/13/2023 Marijuana smoker 07/13/2023 Vitamin D insufficiency--recheck level in [facility] er 2021. 08/06/2022 Major depressive [...] 1 year. 07/20/11:Pap--ASCUS, +HR HPV 70. Plan [place] - . In [facility], ep, prob list, hx updated. 08/30/11: KIANNA 2 on colpo. Pap--ASC-H. POLLUTION CONTROL TECHNICIAN referral made. LEEP scheduled for 10/11/11. Reminder in [facility]. LEEP 10/17--KIANNA 1-2 with clear margins; Pap in 6 months x 2. Then Yearly Paps until 2030. Reminder placed in [facility]. 05/08/12:ASCUS, -HPV. Repeat pap @ Annual [...] 02/03/2022 Family History Medical History Relation Comments Brain/RECEPTION MANAGER Cancer Father Heart Disease Father Lung Cancer [...] PM CDT Legal Sex Female 5:01 AM FUSION JUNCTURE GRINDER Gender Identity Female 08/05/2022 7:33 PM CDT Sexual Orientation Straight 07/06/2023 2: 02 PM CDT Last Filed Vital Signs Vital Sign Reading Time Taken Comments Blood Pressure 134/84 10/06/2023 2:36 PM FUSION JUNCTURE GRINDER Pulse 80 10/06/2023 2:36 PM FUSION JUNCTURE GRINDER Temperature 36.9 C (98.4 F) 10/06/2023 2:36 PM FUSION JUNCTURE GRINDER Respiratory Rate 12 10/06/2023 2:36 PM FUSION JUNCTURE GRINDER Oxygen Saturation 98% 10/06/2023 2:36 PM FUSION JUNCTURE GRINDER Inhaled Oxygen Concentration - - Weight 83 kg (183 lb) 10/06/2023 2:36 PM FUSION JUNCTURE GRINDER Height 171.5 cm (5' 7.5) 10/06/2023 2:36 PM FUSION JUNCTURE GRINDER Body Mass Index 28.24 10/06/2023 2:36 PM FUSION JUNCTURE GRINDER Plan of Treatment Health Maintenance Due Date [...] HCV ANTIBODY ([facility]) Routine 10/06/2023 3:26 PM FUSION JUNCTURE GRINDER Screening for STDs (sexually transmitted diseases) POLLUTION CONTROL TECHNICIAN PAP/APTIMA HPV W/REFLEX TO HPV GENOTYPES ([facility]) Routine 10/06/2023 3:26 PM FUSION JUNCTURE GRINDER Screening for cervical cancer from Last 3 Months or Most Recently Relevant to Health Maintenance Results * POLLUTION CONTROL TECHNICIAN PAP/APTIMA HPV W/REFLEX TO HPV GENOTYPES ([facility]) (10/06/2023 3:26 PM FUSION JUNCTURE GRINDER) Diagnosis: ([facility]) Comment 03/2023 9:06 PM FUSION JUNCTURE GRINDER [facility] Comment: NEGATIVE FOR INTRAEPITHELIAL LESION OR MALIGNANCY. THIS SPECIMEN WAS RESCREENED PART OF OUR LUNCH COUNTER MANAGER PROGRAM. Specimen Adequacy: ([facility]) Comment 10/11/2023 9:06 PM FUSION JUNCTURE GRINDER [facility] Comment: Satisfactory for evaluation. Endocervical and/or squamous metaplastic cells (endocervical component) are present. Clinician Provided ICD10: ([facility]) Comment 10/11/2023 9:06 PM FUSION JUNCTURE GRINDER [facility] Comment: Z12.4 Performed by: Comment 10/11/2023 9:06 PM FUSION JUNCTURE GRINDER [facility] Comment: Rodrigo Hackett Sr, News Analyst ([facility]) QC Reviewed by: ([facility]) Comment 10/11/2023 9:06 PM [facility] Comment: Saran Sauceda, News Analyst ([facility]) Cyto Comments ([facility]) . 10/11/2023 9:06 PM FUSION JUNCTURE GRINDER [facility] Note: ([facility]) Comment 9:06 PM [facility] Comment: The Pap smear is a screening test designed to aid in the detection of premalignant and malignant conditions of the uterine cervix. It is not a diagnostic procedure and should not be used as the sole means of detecting cervical cancer. Both false-positive and false-negative reports do occur. HPV Aptima ([facility]) Negative Negative 03/2023 9:06 PM [facility] Comment: This nucleic acid amplification test detects fourteen high-risk HPV types (16,18,31,33,35,39,45,51,52,56,58,59,66,68) without differentiation. HPV Genotype Reflex ([facility]) Comment 10/11/2023 9:06 PM [facility] Comment: Criteria not met, HPV Genotype not performed. Test Methodology ([facility]) Comment 10/11/2023 9:06 PM [facility] Comment: This liquid based ThinPrep(R) pap test was screened with the use of an image guided system. Pap 10/06/2023 3:26 PM FUSION JUNCTURE GRINDER 10/06/2023 3:26 PM [facility] - 10/11/2023 9:06 PM [facility] Specimen Comment: [id number] Specimen Comment: Source.............Cervix Specimen Comment: LMP / Prev Treat...None Specimen Comment: Dates / Results....LEEP AT AGE 21 Specimen Comment: No. of containers..01 ThinPrep Vial Performed at: 01 - [facility] [place] [address] [id number] Cath Lab: Corinne Mckeon MD, Phone: [phone] Performed at: - [facility] [place] [address] [facility] [address] [place] [id number] Cath Lab: Antoine Bartlett MD, Phone: [phone] Performed at: 03 - [facility] [place] [address] [id number] Cath Lab: Micheal Bartlett MD, Phone: [phone] Renee Nieto PA-C [facility] ORDERABLES Final Re sult Performing Organization Address [facility]/ZIP Co de Phone Number [facility] [address] [place] [address] * HCV ANTIBODY ([facility]) (10/06/2023 3:26 PM FUSION JUNCTURE GRINDER) [facility] Hepatitis C Virus Antibody ([facility]) Non Reactive Non Reactive 10/08/2023 8:09 AM FUSION JUNCTURE GRINDER [facility] Comment: HCV antibody alone does not differentiate between previously resolved infection and active infection. Equivocal and Reactive HCV antibody results should be followed up with an HCV RNA test to support the diagnosis of active HCV infection. Blood Venipuncture / Unknown 10/06/2023 3:26 PM FUSION JUNCTURE GRINDER 10/06/2023 3:26 PM FUSION JUNCTURE GRINDER Narrative [facility] - 10/08/2023 8:09 AM FUSION JUNCTURE GRINDER Performed at: - [facility] [address] [id number] Cath Lab: Zia Navarrete MD, Phone: [phone] us Renee Nieto PA-C [facility] ORDERABLES Final Re sult Performing Organization Address City/[facility]/ZIP Co de Phone Number [facility] [address] [place] [address] from Last 3 Months or Most Recently Relevant to Health Maintenance [place] [address] [place] [address] PMAP/MNCARE Care Teams Commercial Installer Relationship Specialty Start Date End Date Renee Nieto PA-C PCP - General Family Medicine 02/28/24
[2025-03-20 16:32] LABS: Amphetamine Screen Urine POSITIVE (Negative); Barbiturate Screen Urine Negative (Negative); Benzodiazepines Screen Urine Negative (Negative); Cannabinoid Screen Urine POSITIVE (Negative); Cocaine Screen Urine Negative (Negative); Methadone Screen Urine Negative (Negative); Methamphetamines Screen Urine POSITIVE (Negative); Opiate Screen Urine Negative (Negative); Oxycodone Screen Urine Negative (Negative); Phencyclidine Screen Urine Negative (Negative); Tricyclic Antidepressant Urine Negative (Negative)
== END 2025-03-20 16:44 | disposition home or self-care (01) ==
PROVIDERS: Emergency Provider Family Medicine
DX: O16.1 Unspecified maternal hypertension, first trimester (principal); O99.321 Drug use complicating pregnancy, first trimester; F15.90 Other stimulant use, unspecified, uncomplicated; Z72.0 Tobacco use; F43.9 Reaction to severe stress, unspecified; Z59.00 Homelessness unspecified; Z3A.11 11 weeks gestation of pregnancy
CPT/HCPCS: 36415; 80048; 80076; 80306; 81001; 83615; 83735; 84550; 85025; 87086; 93005; 96374; 99284; J2405; J7030

== ENCOUNTER 2025-05-08 08:45 | Outpatient (CLI) | payer BC, SELFPAY | END 2025-05-08 08:46 | disposition home or self-care (01) | LOC: US 08:45 | PROVIDERS: Visit Provider Obstetrics & Gynecology | DX: O09.512 Supervision of elderly primigravida, second trimester (principal); O16.2 Unspecified maternal hypertension, second trimester; O99.212 Obesity complicating pregnancy, second trimester; Z3A.18 18 weeks gestation of pregnancy | CPT/HCPCS: 76811; 76817 ==

== ENCOUNTER 2025-06-12 07:09 | Outpatient (CLI) | payer BC, SELFPAY | END 2025-06-12 07:10 | disposition home or self-care (01) | PROVIDERS: Visit Provider Obstetrics & Gynecology | DX: O10.912 Unspecified pre-existing hypertension complicating pregnancy, second trimester (principal); O99.322 Drug use complicating pregnancy, second trimester; F11.10 Opioid abuse, uncomplicated; Z3A.23 23 weeks gestation of pregnancy | CPT/HCPCS: 76816 ==

== ENCOUNTER 2025-06-18 14:05 | Emergency (ER) | payer BC, SELFPAY ==
--- OUTSIDE RECORDS SUMMARY | 2024-05-15 08:00 | XMS_ITS ---
Author Organization [facility] Address [address] [place] [address] Care Team Providers Care Lead Supply Worker Name Role Phone None, None Primary Care Provider UnavailDIANELYS Aguilar Unavailable [phone] Darcy Funez Unavailable Unavailable Allergies Allergen (clinical drug ingredient) Drug/Non Drug Allergy documented on EMR Reaction Allergy Type Onset Date Status amoxicillin / clavulanate Augmentin Unknown Drug Allergy Active amoxicillin Amoxicillin Unknown Drug Allergy Act alannah REASON FOR VISIT New patient follow up for left otorrhea possible CSF leak after head trauma Medications Medication SIG (Take, Route, Frequency, Duration) Notes Start Date End Date Status metroNIDAZOLE 0.75 % Gel Vaginal; Durati on: 10 Days Not-Taking valACYclovir HCl 1 GM Tablet Oral; Duration: 5 Days Not-T aking Azelastine HCl 137 MCG/SPRAY Solution 1 puff in each nostril Nasally 1-2 times a day; Duration: 90 days 05/15/2024 Active Social History Tobacco Use: Social History Observation Description Date Details (start date - stop date) Current Smoker NA - NA Social History Drug/Alcohol: Social Info Question Answer Notes AUDIT-C (Standard) Did you have a drink containing alcohol in the past year? Yes How often did you have six or more drinks on one occasion in the past year? Never (0 point) How many drinks did you have on a typical day when you were drinking in the past year? 1 or 2 drinks (0 point) How often did you have a drink containing alcohol in the past year? Never (0 point) Points 0 Interpretation Negative Tobacco Use: Social Info Question Answer Notes Tobacco Control (Standard) Tobacco use: Current smoker How many cigarettes a day do you smoke? 6-10 How soon after you wake up do you smoke your first cigarette? 31-60 minutes Are you interested in quitting? Not ready to quit Problems Problem Type SNOMED Code ICD Code Onset Dates Problem Status W/U Status Risk Notes Problem Allergic rhinitis (85672124) Allergic rhinitis, unspecified seasonality, unspecified trigger (J30.9) Active confirmed Vital Signs Height 68.5 in 05/15/2024 BMI 26.97 kg/m2 05/15/2024 Height-cm 173.99 cm 05/15/2024 Weight-kg 81.65 kg 05/15/2024 Weight 180 lbs 05/15/2024 Encounters Encounter Location Date Provider Diagnosis [facility] [address] [place] [address] 05/15/2024 DIANELYS YAOFLACO Perforation of left tympanic membrane H72.92 and Allergic rhinitis, unspecified seasonality, unspecified trigger J30.9 Assessments Encounter Date Diagnosis (ICD Code) Assessment Notes Treatment Notes Treatment Clinical Notes Section Notes 05/15/2024 Perforation of left tympanic membrane (ICD-10 - H72.92) Based on ED notes and patient's symptoms, it appears she likely suffered a left TM perforation after she was struck in the head with a steel door. There was concern for possible CSF leak, but CT temporal bone showed no definitive fracture. The otorrhea has stopped and ear exam today with no evidence of continued perforation and no evidence of middle ear effusion. Audiogram and tympanograms normal today as well. Follow-up as needed if ear pain/plugging worsens or acute hearing changes occur. 05/15/2024 Allergic rhinitis, unspecified seasonality, unspecified trigger (ICD-10 - J30.9) Reports long history of chronic rhinitis without any history of sinus infections. Had tried flonase in the past with no improvement in her symptoms. Sinuses are clear on her CT temporal bone from 04/25/24. Recommend trial of azelastine nasal spray 1-2 times daily to see if this helps with her allergic rhinitis. I reviewed the proper way to angle nose sprays. Follow-up as needed if symptoms worsen or fail to improve. Plan Of Treatment Medication Medication Name Sig Start Date Stop Date Notes Azelastine HCl 137 MCG/SPRAY Solution 1 puff in each nostril Nasally 1-2 times a day; Duration: 90 days 05/15/2024 Treatment Notes Assessment Notes Perforation of left tympanic membrane Ba sed on ED notes and patient's symptoms, it appears she likely suffered a left TM perforation after she was struck in the head with a steel door. There was concern for possible CSF leak, but CT temporal bone showed no definitive fracture. The otorrhea has stopped and ear exam today with no evidence of continued perforation and no evidence of middle ear effusion. Audiogram and tympanograms normal today as well. Follow-up as needed if ear pain/plugging worsens or acute hearing changes occur. Allergic rhinitis, unspecifi ed seasonality, unspecified trigger Reports long history of chronic rhinitis without any history of sinus infections. Had tried flonase in the past with no improvement in her symptoms. Sinuses are clear on her CT temporal bone from 04/25/24. Recommend trial of azelastine nasal spray 1-2 times daily to see if this helps with her allergic rhinitis. I reviewed the proper way to angle nose sprays. Follow-up as needed if symptoms worsen or fail to improve. Next Appt Details Follow Up: prn, Reason: History and Physical Notes * HPI (History of Present Illness) Category Sub-Category Detail Notes Category Not es --Narrative-- Jaky Monge is a 34 year old female presenting to clinic today for left TM perforation. She went to the ED back on 04/25/24 because she was experiencing left otorrhea and decreased hearing in the left ear tjat started the day prior. Of note, she reported getting struck on the left side of her hear by a heavy steel door 4 days prior to her ED presentation, but the otorrhea and hearing decrease did not occur until she had a novacain injection by her dentist in the region of her left maxillary molars. CT scan in the ED demonstrated no obvious fracture, but did show moderate left middle ear effusion and left mastoid effusion. She reports the drainage occurred for about 1.5 weeks and stopped about 1 week ago. IT was initially serous/yellow tinged. She also reports following up with [facility] 1 week ago and was told they weren't concerned about a CSF leak. Reports some tinnitus in the left ear and occasional pains in the left ear. Denies new vertigo symptoms. No history of ear trauma/surgery and no significant history of ear infections. She has been told she has chronic rhinitis in the past that she attributes to allergies. She tried Flonase in the past and felt this made her rhinorrhea worse. Denies any significant sinus infection history, but does feel like she has PND. Does not take antihistamines. Examination Category Sub-Category Detail Notes Category Not es Constitutional General Appearance: Normal, Well developed, Well nourished, No obvious distress Ability to Communicate: Normal, Communic ates appropriately Head and Face Appearance and Symmetry: Normal, Facial strength symmetric HB I/ bilateral, No scalp or facial scarring or suspicious lesions Extraocular movements intact: Extraocula r movements intact Ears Auricle: Normal, Auricles without sca rs, lesions, or masses AU External auditory canal: External audito ry canal normal AU Tympanic membrane: Tympanic membranes n ormal without swelling or erythema, no fluid or masses seen in middle ear space. Small amount of crusting present on the left TM, but no obvious perforation present. Middle ear: clear, Bilaterally Nose Architecture: Normal, Grossly normal external nasal architecture with no masses or lesions Mucosa: Normal Mucosa, pink and moist Septum: Right septal deviati on Oral Cavity and Oropharynx Lips: Normal, No lip deformities Dental and gingiva: Normal, No obvious d ental or gingival disease Mucosa: Normal, Moist mucous membranes Tongue: Normal, Tongue mobil e with no mucosal abnormalities Tonsils: Normal, Tonsils free of lesions and not enlarged Oral pharynx: Normal, Posterior ph arynx without visible/palpable masses/lesions or remarkable asymmetry Masses: Normal, No masses or pathologically enlarged lymph nodes Neck Masses/lymph nodes: Normal, No worrisome neck masses or lymph nodes Trachea and larynx position Normal, Trac hea and larynx midline Tenderness: Normal, No cervical tenderness Neurological Cranial Nerves II-XII Grossly intact Speech pattern: Normal inflection an d intonation Respiratory Respiratory Symmetric chest wall rise with inspiration, no stridor appreciated Cardiovascular Pulse Regular rate and rhythm Audiology Tympanometry is within normal limits, tana aterally Audiogram revealed normal hear ing, bilaterally, with air bone gaps in the left ear at 500-2000 Hz Word Recognition Score at 100% in each e ar when measured at 50 dBHL masked Acoustic Reflexes Right Ear: present f or ipsilateral stimulation; Left Ear: present for ipsilateral stimulation at 500, 2000, and 4000 Hz, absent at 1000 Hz Eyes Appearance Normal extraocul ar movements without esotropia or extropia Diagnostic Tests Reviewed Imaging Results CT tem poral bone from 04/25/24 with moderate left mastoid and middle ear effusions without any definitive fracture noted. Progress Notes * Reyna MONGEOB: 0 (35 yo F)Acc No.[id number]:05/15/2024 Patient: Jaky Peterson Provider: Danilo Galaviz PA-C :1990 A ge:34 Y S ex:Female Date:05/15/2024 Address:[address] [place] [address] [address] [id number] Subjective: * Chief Complaints: * N ew patient follow up for left otorrhea possible CSF leak after head trauma * HPI: - -Narrative--: Jaky Monge is a 34 year old female presenting to clinic today for left TM perforation. She went to the ED back on 04/25/24 because she was experiencing left otorrhea and decreased hearing in the left ear tjat started the day prior. Of note, she reported g etting struck on the left side of her hear by a heavy steel door 4 days prior to her ED presentation, but the otorrhea and hearing decrease did not occur until she had a novacain injection by her dentist in the region of her left maxillary molars. CT scan in the ED demonstrated no obvious fracture, but did show moderate left middle ear effusion and left mastoid effusion. She reports the drainage occurred for about 1.5 weeks and stopped about 1 week ago. IT was initially serous/yellow tinged. She also reports following up with [facility] 1 week ago and was told they weren't concerned about a CSF leak. Reports some tinnitus in the left ear and occasional pains in the left ear. Denies new vertigo symptoms. No history of ear trauma/surgery and no significant history of ear infections. She has been told she has chronic rhinitis in the past that she attributes to allergies. She tried Flonase in the past and felt this made her rhinorrhea worse. Denies any significant sinus infection history, but does feel like she has PND. Does not take antihistamines. * Medical History: Anxiety Depression Autoimmune disorder Hypertension Cervical cancer Medical History Verified * Surgical History: [place] teeth Surgical History verified. * Hospitalization/Major Diagno stic Procedure: Denies Past Hospitalization. Hospitalization Verified. * Family History: N o Family History documented.. F amily History Verified.. * Social History: T obacco Use: T obacco Control (Standard) T obacco use: C urrent smoker H ow many cigarettes a day do you smoke? 6 -10 H ow soon after you wake up do you smoke your first cigarette? 3 1-60 minutes A re you interested in quitting? N ot ready to quit D rug/Alcohol: A LC-C (Standard) D id you have a drink containing alcohol in the past year? Y es H ow often did you have six or more drinks on one occasion in the past year? N ever (0 point) H ow many drinks did you have on a typical day when you were drinking in the past year? 1 or 2 drinks (0 point) H ow often did you have a drink containing alcohol in the past year? N ever (0 point) P oints 0 I nterpretation N egative S ocial History Verified. * Medications: N ot-TakingvalACYclovir HCl 1 GM Tablet Oral metroNIDAZOLE 0.75 % Gel Vaginal Medication List reviewed and reconciled with the patientNot-Taking valACYclovir HCl 1 GM Tablet Oral Not-Taking metroNIDAZOLE 0.75 % Gel Vaginal Medication List reviewed and reconciled with the patient * Allergies: A ugmentinAmoxicillinyesAllergies Verified. Objective: * Vitals: W t-lbs: 180 lbs, Ht:68.5in, BMI:26.97Index, Ht-cm: 173.99 cm, Wt-k.65 kg. * Examination: A udiology: Tympanometry i s within normal limits, bilaterally. Acoustic Reflexes R ight Ear: present for ipsilateral stimulation; Left Ear: present for ipsilateral stimulation at 500, 2000, and 4000 Hz, absent at 1000 Hz. Audiogram r evealed normal hearing, bilaterally, with air bone gaps in the left ear at 500- 2000 Hz. Word Recognition Score a t 100% in each ear when measured at 50 dBHL masked . C onstitutional: General Appearance: N ormal, Well developed, Well nourished, No obvious distress. Ability to Communicate: N ormal, Communicates appropriately. H ead and Face: Appearance and Symmetry: N ormal, Facial strength symmetric HB I/ bilateral, No scalp or facial scarring or suspicious lesions. Extraocular movements intact: E xtraocular movements intact. E ars: Auricle: N ormal, Auricles without scars, lesions, or masses AU. External auditory canal: E xternal auditory canal normal AU. Tympanic membrane: T ympanic membranes normal without swelling or erythema, no fluid or masses seen in middle ear space.Small amount of crusting present on the left TM, but no obvious perforation present.. Middle ear: c lear, Bilaterally. E yes: Appearance N ormal extraocular movements without esotropia or extropia. N ose: Architecture: N ormal, Grossly normal external nasal architecture with no masses or lesions. Mucosa: N ormal Mucosa, pink and moist. Septum: R ight septal deviation. O ral Cavity and Oropharynx: Lips: N ormal, No lip deformities. Dental and gingiva: N ormal, No obvious dental or gingival disease. Mucosa: N ormal, Moist mucous membranes. Tongue: N ormal, Tongue mobile with no mucosal abnormalities. Tonsils: N ormal, Tonsils free of lesions and not enlarged.? Oral pharynx: N ormal, Posterior pharynx without visible/palpable masses/lesions or remarkable asymmetry. Masses: N ormal, No masses or pathologically enlarged lymph nodes. N suman: Masses/lymph nodes: N ormal, No worrisome neck masses or lymph nodes. Trachea and larynx position N ormal, Trachea and larynx midline. Tenderness: N ormal, No cervical tenderness. ? N eurological: Cranial Nerves II-XII G rossly intact. Speech pattern: N ormal inflection and intonation. ? C ardiovascular: Pulse R egular rate and rhythm. R espiratory: Respiratory S ymmetric chest wall rise with inspiration, no stridor appreciated. D iagnostic Tests Reviewed: Imaging Results C T temporal bone from 04/25/24 with moderate left mastoid and middle ear effusions without any definitive fracture noted.. Assessment: * Assessment: 1. P erforation of left tympanic membrane - H72.92 (Primary) 2 . A llergic rhinitis, unspecified seasonality, unspecified trigger - J30.9 Plan: * Treatment: 2. A llergic rhinitis, unspecified seasonality, unspecified trigger Start Azelastine HCl Solution, 137 MCG/SPRAY, 1 puff in each nostril, Nasally, 1-2 times a day, 90 days, 3, Refills 3. Notes: Reports long history of chronic rhinitis without any history of sinus infections. Had tried flonase in the past with no improvement in her symptoms. Sinuses are clear on her CT temporal bone from 04/25/24. Recommend trial of azelastine nasal spray 1-2 times daily to see if this helps with her allergic rhinitis. I reviewed the proper way to angle nose sprays. Follow-up as needed if symptoms worsen or fail to improve. * Preventive Medicine: MIPS: B RI Above Normal BMI Follow-up D ietary management education, guidance, and counseling T obacco Counseling: Patient counselled on the dangers of tobacco use and urged to quit. 0 05/15/2024 * Follow Up: p rn * Electronic signature of SARAH SINCLAIR on 06/18/2025 at 02:08 PM CDT Sign off status: Pending * Provider: Danilo Galaviz PA-C Date: 0 05/15/2024 Generated for Pravin ventura/Rupa/Hienitting on: 0 06/18/2025 02:08 PM CDT
[2025-06-18] VITALS (22 sets, daily range): BP systolic 124–144; BP diastolic 84–98; PULSE 85–97; RESP 3–33; TEMP 36.7; O2SAT 96–99; BMI 33.5
--- OUTSIDE RECORDS SUMMARY | 2025-06-18 14:08 | XMS_ITS ---
Author Organization [facility] Source Produ ction (ClinicalSummary Clone) Address Unknown Care Team Providers Care Sales Representative Metals Name Role Phone Unavailable Primary Care Physician Unavailab le Results * [UNITY] ANEUPLOIDY NIPT Performed by: Zing Component Value Range Date Fraction 6.6% 03/28/2025 06 :41 am [facility] Sex Chromosome Aneuploidy NOT DETECTED 06:41 am [facility] Monosomy X LOW RISK <1 in 10,000 2024 06:41 am [facility] Trisomy 13 LOW RISK <1 in 10,000 2024 06:41 am [facility] Trisomy 18 LOW RISK <1 in 10,000 2024 06:41 am [facility] Trisomy 21 LOW RISK <1 in 10,000 2024 06:41 am [facility] Sex FEMALE 03/28/2025 06:4 1 am [facility] Gestation FERNANDEZ 03/28/20 06:41 am [facility] For detailed report, see PDF See PDF 03/28/2025 06:41 am UTC 03/28/2025 06:4 1 am [facility] Social History Observation Value Start Date End Date
--- OUTSIDE RECORDS SUMMARY | 2025-06-18 14:08 | XMS_ITS | Clinical Summary ---
Author Organization [facility] Address [address] [place] [address] [place] [address] Care Team Providers Care International Account Manager Name Role Phone Renee Nieto PA-C Primary Care Provider [phone] Allergies Active Allergy Reactions Criticality Noted Date [...] original. Patient is eligible for one of [facility]'s Care Compass Programs (Care Coordination/Population Health), but we have been unable to reach them. If patient expresses interest or has questions, please have the patient contact our Lens Generating Machine Tender at [phone] for more information. Problem Noted Date Diagnosed Date Genital herpes simplex, unspecified site 024 BV (bacterial vaginosis), recurrent 02/29/2024 History of cervical dysplasia 07/13/2023 Marijuana smoker 07/13/2023 Vitamin D insufficiency--recheck level in [facility] er 2021. 08/06/2022 Major depressive disorder [...] 1 year. 07/20/11:Pap--ASCUS, +HR HPV 70. Plan [place] - . In [facility], ep, prob list, hx updated. 08/30/11: KIANNA 2 on colpo. Pap--ASC-H. VESSEL ENGINEER referral made. LEEP scheduled for 10/11/11. Reminder in [facility]. LEEP 10/17--KIANNA 1-2 with clear margins; Pap in 6 months x 2. Then Yearly Paps until 2030. Reminder placed in [facility]. 05/08/12:ASCUS, -HPV. Repeat pap @ Annual [...] 02/03/2022 Family History Medical History Relation Comments Brain/DOUBLER HELPER Cancer Father Heart Disease Father Lung Cancer Father Lymphoid Neoplasms Cancer Father Ovarian Cancer Maternal Grandmother Other Disease Mother uterine fibroids Diabetes Paternal Grandfather Emphysema Paternal Grandfather Other Disease Paternal Grandmother hypotension Relation Status Comments Father Maternal Grandmother Mother Paternal Grandfather Paternal Grandmother Social History Tobacco Use Types Packs/Day Years Used Date Smoking Tobacco: Every Day Cigarettes 0.5 23.6 Started: 2001 Smokeless Tobacco: Never Tobacco Cessation:Ready [...] PM CDT Legal Sex Female 5:01 AM PULLER OUT Gender Identity Female 08/05/2022 7:33 PM CDT Sexual Orientation Straight 07/06/2023 2: 02 PM CDT Last Filed Vital Signs Vital Sign Reading Time Taken Comments Blood Pressure 134/84 10/06/2023 2:36 PM PULLER OUT Pulse 80 10/06/2023 2:36 PM PULLER OUT Temperature 36.9 C (98.4 F) 10/06/2023 2:36 PM PULLER OUT Respiratory Rate 12 10/06/2023 2:36 PM PULLER OUT Oxygen Saturation 98% 10/06/2023 2:36 PM PULLER OUT Inhaled Oxygen Concentration - - Weight 83 kg (183 lb) 10/06/2023 2:36 PM PULLER OUT Height 171.5 cm (5' 7.5) 10/06/2023 2:36 PM PULLER OUT Body Mass Index 28.24 10/06/2023 2:36 PM PULLER OUT Plan of Treatment Health Maintenance Due Date Last Done Comments Anxiety Follow-Up (MIRA-7) 10/06/2024 10/06/2023 Depression Follow-Up (PHQ-9) 10/06/2024 10/06/2023 Pap Smear 10/06/2028 10/06/2023 Adult Tetanus Booster 02/04/2032 02/03/2022 , 06/26/2002 RSV Vaccines (1 - 1-dose 75+ series) 2065 Pneumococcal Vaccine Discontinued 03/12/2009 Hepatitis C Screening Completed 10/06/2023 , 08/05/2022 COVID-19 Vaccine Discontinued Influenza Vaccine Discontinued Meningococcal B Vaccine Aged Out No l onger eligible based on patient's age to complete this topic Procedures Procedure Name Priority Date/Time Associated Diagnosis Comments HCV ANTIBODY ([facility]) Routine 10/06/2023 3:26 PM PULLER OUT Screening for STDs (sexually transmitted diseases) VESSEL ENGINEER PAP/APTIMA HPV W/REFLEX TO HPV GENOTYPES ([facility]) Routine 10/06/2023 3:26 PM PULLER OUT Screening for cervical cancer from Last 3 Months or Most Recently Relevant to Health Maintenance Results * VESSEL ENGINEER PAP/APTIMA HPV W/REFLEX TO HPV GENOTYPES ([facility]) (10/06/2023 3:26 PM PULLER OUT) Diagnosis: ([facility]) Comment 03/2023 9:06 PM PULLER OUT [facility] Comment: NEGATIVE FOR INTRAEPITHELIAL LESION OR MALIGNANCY. THIS SPECIMEN WAS RESCREENED PART OF OUR FOAM GUN OPERATOR PROGRAM. Specimen Adequacy: ([facility]) Comment 10/11/2023 9:06 PM PULLER OUT [facility] Comment: Satisfactory for evaluation. Endocervical and/or squamous metaplastic cells (endocervical component) are present. Clinician Provided ICD10: ([facility]) Comment 10/11/2023 9:06 PM PULLER OUT [facility] Comment: Z12.4 Performed by: Comment 10/11/2023 9:06 PM [facility] Comment: Rodrigo Hackett Sr, Mail Sorting Supervisor ([facility]) QC Reviewed by: ([facility]) Comment 10/11/2023 9:06 PM [facility] Comment: Saran Sauceda, Mail Sorting Supervisor ([facility]) Cyto Comments ([facility] . 10/11/2023 9:06 PM PULLER OUT [facility] Note: ([facility]) Comment 9:06 PM [facility] Comment: The Pap smear is a screening test designed to aid in the detection of premalignant and malignant conditions of the uterine cervix. It is not a diagnostic procedure and should not be used as the sole means of detecting cervical cancer. Both false-positive and false-negative reports do occur. HPV Aptima ([facility]) Negative Negative 03/2023 9:06 PM [facility] Comment: This nucleic acid amplification test detects fourteen high-risk HPV types (16,18,31,33,35,39,45,51,52,56,58,59,66,68) without differentiation. HPV Genotype Reflex ([facility]) Comment 10/11/2023 9:06 PM [facility] Comment: Criteria not met, HPV Genotype not performed. Test Methodology ([facility]) Comment 10/11/2023 9:06 PM [facility] Comment: This liquid based ThinPrep(R) pap test was screened with the use of an image guided system. Pap 10/06/2023 3:26 PM PULLER OUT 10/06/2023 3:26 PM [facility] - 10/11/2023 9:06 PM [facility] Specimen Comment: [id number] Specimen Comment: Source.............Cervix Specimen Comment: LMP / Prev Treat...None Specimen Comment: Dates / Results....LEEP AT AGE 21 Specimen Comment: No. of containers..01 ThinPrep Vial Performed at: 01 - [facility] [place] [address] [id number] Mcat Tutor: Corinne Mckeon MD, Phone: [phone] Performed at: 02 - [facility] [address] [place] [id number] Mcat Tutor: Antoine Bartlett MD, Phone: [phone] Performed at: 03 - [facility] [address] [id number] Mcat Tutor: Micheal Bartlett MD, Phone: [phone] us Renee Nieto PA-C [facility] ORDERABLES Final Re sult Performing Organization Address City/[facility]/ZIP Co de Phone Number [facility] [address] [place] [address] * HCV ANTIBODY ([facility]) (10/06/2023 3:26 PM PULLER OUT) Hepatitis C Virus Antibody ([facility]) Non Reactive Non Reactive 10/08/2023 8:09 AM PULLER OUT [facility] Comment: HCV antibody alone does not differentiate between previously resolved infection and active infection. Equivocal and Reactive HCV antibody results should be followed up with an HCV RNA test to support the diagnosis of active HCV infection. Blood Venipuncture / Unknown 10/06/2023 3:26 PM PULLER OUT 10/06/2023 3:26 PM PULLER OUT Narrative [facility] - 10/08/2023 8:09 AM PULLER OUT Performed at: - [facility] [address] [id number] Mcat Tutor: Zia Navarrete MD, Phone: [phone] us Renee Nieto PA-C [facility] ORDERABLES Final Re sult [facility] [address] [place] [address] from Last 3 Months or Most Recently Relevant to Health Maintenance Insurance BCBS PMAP/MNCARE [facility] Address: [place] [address] Care Teams International Account Manager Relationship Specialty Start Date End Date Renee Nieto, PADonC PCP - General Family Medicine 02/28/24
--- OUTSIDE RECORDS SUMMARY | 2025-06-18 14:08 | XMS_ITS ---
Author Organization [facility] Source Produ ction (ClinicalSummary Clone) Address Unknown Care Team Providers Care Photographic Enlarger Operator Name Role Phone Unavailable Primary Care Physician Unavailab le Results * [UNITY] CARRIER SCREEN Performed by: [facility] Component Value Range Date Sickle Cell Disease/Beta-Thalassemia/Hemo globinopathies carrier screen NEGATIVE 2025 02:04 am [facility] Alpha-Thalassemia carrier screen NEGATIVE 2025 02:04 am [facility] Cystic Fibrosis carrier screen NEGATIVE 2025 02:04 am [facility] Spinal Muscular Atrophy carrier screen NEGATIVE 2 SMN1 copies, SNP not present 2025 02:04 am [facility] For detailed report, see PDF See PDF 2025 02:04 am UT 2025 02:0 4 am [facility] Social History Observation Value Start Date End Date
--- OUTSIDE RECORDS SUMMARY | 2025-06-18 14:08 | XMS_ITS | Clinical Summary ---
Author Organization [facility] Address [address] [place] [address] Care Team Providers Care Corporate Compliance Manager Name Role Phone None, Provided Primary Care Provider Unavailabl e Allergies Active Allergy Reactions Criticality Noted Date Comments Amoxicillin Other - Describe In Comment Field 05/04/2021 States that she gets a yeast infection Latex Rash 05/04/2021 Medications NORGESTIMATE-ETH INYL ESTRADIOL (TRINESSA, 28, ORAL) Take by mouth. 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 Gender Identity Not on file Sexual Orientation Not on file Obstetrics History Last Filed Vital Signs Vital Sign Reading Time Taken Comments Blood Pressure 136/88 05/02/2025 3:00 PM CDT Pulse 80 05/02/2025 3:00 PM CDT Temperature 37.1 C (98.8 F) 04/27/2024 10:27 AM CDT Respiratory Rate 14 05/02/2025 3:00 PM CDT Oxygen Saturation 100% 04/27/2024 1:00 PM CDT Inhaled Oxygen Concentration - - Weight 91.2 kg (201 lb) 05/02/2025 3:00 PM CDT Height 172.7 cm (5' 8) 04/27/2024 10:27 AM CDT Body Mass Index 30.56 04/27/2024 10:27 AM CDT Plan of Treatment Health Maintenance Due Date Last Done Comments Tetanus booster 2001 Depression screening for age 12+ 2002 HIV for age 15-65 2005 BMI (ht and wt on same day) for age 18+ 2008 Hepatitis C screening for ag e 18-79 2008 Hepatitis B series for 19+ ( 1 of 3 - 19+ 3-dose series) 2009 Pap test for age 21-65 2011 COVID-19 vaccine series ( season) 2024 Influenza Vaccine (#1) 2025 Pneumococcal series for age 6-49 Aged Out No longer eligible based on patient's age to complete this topic Procedures Procedure Name Priority Date/Time Associated Diagnosis Comments EXTENDED HOLTER Routine 03/21/2025 Syncope and collapse from Last 3 Months Results * EXTENDED HOLTER (03/21/2025) us Valery Villeda MD [facility]ARDIAC SERVICES [address] Final Result from Last [address] [place] [address] [place] [address] Advance Directives * Full Code (Latest Code Status on File) Date Activated Date Inactivated Comments 06/14/2014 11:27 PM 06/16/2014 9:04 PM Care Teams Corporate Compliance Manager Relationship Specialty Start Date End Date None, Provided . PCP - General 10/26/07
--- OUTSIDE RECORDS SUMMARY | 2025-06-18 14:08 | XMS_ITS | Patient Health Record ---
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 Name Role Phone None, None Primary Care Provider UnavailDIANELYS Aguilar Unavailable [phone] Darcy Funez Unavailable Unavailable Allergies Allergen (clinical [...] W/U Status Risk Notes Problem Allergic rhinitis ([id number]) Allergic rhinitis, unspecified seasonality, unspecified trigger (J30.9) Active confirmed Plan Of Treatment No Information Insurance Providers Payer Name Payer Address Payer Phone Subscriber Number Group Number Insured Name Patient Relationship to Insured Coverage Start Date Coverage End Date [employer] [address] [address] [place] [phone] [id number] Jaky Reyes Self - patient is the insured Medical (General) History Medical History History ICD Code Anxiety Depression Autoimmune disorder Hypertension Cervical cancer Surgical History Surgery Date(Month/Year) Shelbiana teeth
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
[2025-06-18] MEDS: ASPIRIN 81 MG TAB.CHEW 162 MG PO (15:29)
[2025-06-18 15:37] LABS: Troponin, Point-of-Care* 0.00 ng/ml (0.01-0.04)
[2025-06-18 15:41] LABS: Hematocrit 36.5 % (33.0-51.0); Hemoglobin* 12.4 gm/dL (12.0-16.0); Immature Granulocytes Pct Auto 0.5 %; Mean Corpuscular HGB Conc 34 gm/dL (32-36); Mean Corpuscular Hemoglobin 31 pg (26-34); Mean Corpuscular Volume 92 fL (80-100); RDW Coefficient of Variation % 12.4 % (11.5-15.5); Red Blood Count 3.95 m/uL (4.00-5.20); White Blood Count* 13.86 K/uL (4.50-11.00)
[2025-06-18 15:51] LABS: Immature Granulocytes Abs Auto 0.10 K/uL (0.00-0.30); Lymphocytes Absolute Auto 2.10 K/uL (0.90-2.90); Slide Review Reflex No
[2025-06-18 15:56] LABS: Albumin* 3.5 g/dL (3.3-5.0); Chloride* 103 mmol/L (96-114); Potassium* 3.6 mmol/L (3.6-5.1); Sodium* 133 mmol/L (135-149)
[2025-06-18 15:59] LABS: Alanine Aminotransferase* 9 U/L (4-35); Alkaline Phosphatase* 54 U/L (40-150); Anion Gap 4 mEq/L (7-15); Aspartate Amino Transferase* 21 U/L (12-35); Bilirubin Total* 0.2 mg/dL (0.1-1.5); Blood Urea Nitrogen* 12 mg/dL (5-24); Calcium* 9.3 mg/dL (8.4-10.6); Carbon Dioxide* 26 mmol/L (20-32); Creatinine* 0.4 mg/dL (0.5-1.5); Est. Creatinine Clearance* 198.02; Estimated Glomerular Filt Rate 132 ml/min; Glucose* 81 mg/dL (60-115); Total Protein* 6.4 g/dL (6.0-8.3)
[2025-06-18 16:00] LABS: D Dimer Quantitative* 0.27 ug/ml (0.00-0.50)
--- NOTE | 2025-06-18 16:05 | PC.SOCIAL ---
Social work consult: SW met with patient who states that she is doing well and connects with her [facility] SW Alicia regularly. Patient states Alicia is meeting all of their needs and feel she can reach out to her if any needs arise. Patient states she is connected with Dr. Matthew for addiction med and finds her extremely supportive and has f/u with her on Tuesday. 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 SW to assist if further needs arise.
--- NOTE | 2025-06-18 16:21 | CRLHL7_ITS ---
For Patients: As a result of the Century Cures Act, medical imaging exams and procedure reports are released immediately into your electronic medical record. You may view this report before your referring provider. If you have questions, please contact your health care provider. INDICATION: Chest pain. TECHNIQUE: Chest 2 views. COMPARISON: None. FINDINGS: No pneumothorax or pleural effusion. Lungs are clear. Cardiac and mediastinal contours are within normal limits. Upper abdomen and osseous structures as imaged show no acute abnormality. IMPRESSION: No evidence of acute cardiopulmonary disease. Dictated by José Manuel Garrido MD @ 06/18/2025 4:49:59 PM (Electronically Signed)
== END 2025-06-18 18:07 | disposition home or self-care (01) ==
PROVIDERS: Emergency Provider Emergency Medicine
DX: O99.322 Drug use complicating pregnancy, second trimester (principal); F15.90 Other stimulant use, unspecified, uncomplicated; Z3A.24 24 weeks gestation of pregnancy
CPT/HCPCS: 36415; 71046; 80053; 83690; 84484; 85025; 85379; 99283; 99284; A9270

== ENCOUNTER 2025-06-25 12:01 | Outpatient (CLI) | payer BC, SELFPAY ==
--- OUTSIDE RECORDS SUMMARY | 2024-05-15 08:00 | XMS_ITS ---
Author Organization [facility] Address [address] [place] [address] Care Team Providers Care Zinc Chloride Operator Name Role Phone None, None Primary Care Provider UnavailDIANELYS Aguilar Unavailable [phone] Darcy Funez Unavailable Unavailable Allergies Allergen (clinical drug ingredient) Drug/Non Drug Allergy documented on EMR Reaction Allergy Type Onset Date Status Augmentin Unknown Drug Allergy Active amoxicillin Amoxicillin [...] Status W/U Status Risk Notes Problem Allergic rhinitis, unspecified seasonality, unspecified trigger (J30.9) Active confirmed Vital Signs Height 68.5 in 05/15/2024 BMI 26.97 kg/m2 05/15/2024 Height-cm 173.99 cm 05/15/2024 Weight-kg 81.65 kg 05/15/2024 Weight 180 lbs 05/15/2024 Encounters Encounter Location Date Provider Diagnosis [facility] [address] [place] [address] 05/15/2024 DIANELYS YAOFLACO Perforation of left tympanic [...] * Reyna MONGEOB: 0 (35 yo F)Acc No.[id number]:05/15/2024 Patient: Jaky Peterson Provider: Danilo Galaviz PA-C :1990 A ge:34 Y S ex:Female Date:05/15/2024 Address:[address] [id number] Subjective: * Chief Complaints: * N ew [...] cancer Medical History Verified * Surgical History: [place] teeth Surgical History verified. * Hospitalization/Major Diagno [...] to improve. * Preventive Medicine: MIPS: B AK Above Normal BMI Follow-up D ietary management education, guidance, and counseling T obacco Counseling: Patient counselled on the dangers of tobacco use and urged to quit. 0 05/15/2024 * Follow Up: p rn * Electronic signature of SARAH SINCLAIR on 06/25/2025 at 11:53 AM CDT Sign off status: Pending * Provider: Danilo Galaviz PA-C Date: 0 05/15/2024 Generated for Pravin ventura/Rupa/Hienitting on: 0 06/25/2025 11:53 AM CDT
[2025-06-25] VITALS (19 sets, daily range): BP systolic 107–134; BP diastolic 70–100; PULSE 65–94; O2SAT 97–99
--- OUTSIDE RECORDS SUMMARY | 2025-06-25 11:53 | XMS_ITS | Clinical Summary ---
Author Organization [facility] Address [address] [place] [id number] Care Team Providers Care Bottoming Machine Operator Name Role Phone None, Provided Primary Care Provider Unavailabl e Allergies Active Allergy Reactions Criticality Noted Date Comments Amoxicillin Other - Describe In Comment Field 05/04/2021 States that she gets a yeast infection Latex Rash 05/04/2021 Medications NORGESTIMATE-ETH INYL ESTRADIOL (TRINESSA, 28, ORAL) Take by mouth. 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 PCP - General 10/26/07
--- OUTSIDE RECORDS SUMMARY | 2025-06-25 11:53 | XMS_ITS | Clinical Summary ---
Author Organization [facility] Address [address] [place] [address] [place] [address] Care Team Providers Care Diesel Electrician Name Role Phone Renee Nieto PA-C Primary Care Provider [phone] Allergies Active Allergy Reactions Criticality Noted Date [...] original. Patient is eligible for one of [facility]'s Care Compass Programs (Care Coordination/Population Health), but we have been unable to reach them. If patient expresses interest or has questions, please have the patient contact our Chief Of Staff at [phone] for more information. Problem Noted Date Diagnosed Date Genital herpes simplex, unspecified site 024 BV (bacterial vaginosis), recurrent 02/29/2024 History of cervical dysplasia 07/13/2023 Marijuana smoker 07/13/2023 Vitamin D insufficiency--recheck level in [facility] er 2021. 08/06/2022 Major depressive disorder 11/20/2021 [...] 1 year. 07/20/11:Pap--ASCUS, +HR HPV 70. Plan [place] - . In [facility], ep, prob list, hx updated. 08/30/11: KIANNA 2 on colpo. Pap--ASC-H. [facility]PS referral made. LEEP scheduled for 10/11/11. Reminder in [facility]. LEEP 10/17--KIANNA 1-2 with clear margins; Pap in 6 months x 2. Then Yearly Paps until 2030. Reminder placed in [facility]. 05/08/12:ASCUS, -HPV. Repeat pap @ Annual [...] 02/03/2022 Family History Medical History Relation Comments Brain/RAMP SERVICE EMPLOYEE Cancer Father Heart Disease Father Lung Cancer [...] PM CDT Legal Sex Female 5:01 AM DIRECTOR DIGITAL STRATEGY Gender Identity Female 08/05/2022 7:33 PM CDT Sexual Orientation Straight 07/06/2023 2: 02 PM CDT Last Filed Vital Signs Vital Sign Reading Time Taken Comments Blood Pressure 134/84 10/06/2023 2:36 PM DIRECTOR DIGITAL STRATEGY Pulse 80 10/06/2023 2:36 PM DIRECTOR DIGITAL STRATEGY Temperature 36.9 C (98.4 F) 10/06/2023 2:36 PM DIRECTOR DIGITAL STRATEGY Respiratory Rate 12 10/06/2023 2:36 PM DIRECTOR DIGITAL STRATEGY Oxygen Saturation 98% 10/06/2023 2:36 PM DIRECTOR DIGITAL STRATEGY Inhaled Oxygen Concentration - - Weight 83 kg (183 lb) 10/06/2023 2:36 PM DIRECTOR DIGITAL STRATEGY Height 171.5 cm (5' 7.5) 10/06/2023 2:36 PM DIRECTOR DIGITAL STRATEGY Body Mass Index 28.24 10/06/2023 2:36 PM DIRECTOR DIGITAL STRATEGY Plan of Treatment Health Maintenance Due Date Last Done Comments Anxiety Follow-Up (MIRA-7) 10/06/2024 10/06/2023 Depression Follow-Up (PHQ-9) 10/06/2024 10/06/2023 Pap Smear 10/06/2028 10/06/2023 Adult Tetanus Booster 02/04/2032 02/03/2022, 002 RSV Vaccines (1 - 1-dose 75+ series) 2065 HPV Vaccine Completed 12/27/2007, 12/09, 08/16/2007, Additional history exists Pneumococcal Vaccine Discontinued 03/12/2009 Hepatitis C Screening Completed 10/06/2023, 022 COVID-19 Vaccine Discontinued Influenza Vaccine Discontinued Meningococcal B Vaccine Aged Out No l onger eligible based on patient's age to complete this topic Procedures Procedure Name Priority Date/Time Associated Diagnosis Comments HCV ANTIBODY ([facility]) Routine 10/06/2023 3:26 PM DIRECTOR DIGITAL STRATEGY Screening for STDs (sexually transmitted diseases) [facility] PAP/APTIMA HPV W/REFLEX TO HPV GENOTYPES ([facility]) Routine 10/06/2023 3:26 PM DIRECTOR DIGITAL STRATEGY Screening for cervical cancer from Last 3 Months or Most Recently Relevant to Health Maintenance Results * [facility] PAP/APTIMA HPV W/REFLEX TO HPV GENOTYPES ([facility]) (10/06/2023 3:26 PM DIRECTOR DIGITAL STRATEGY) Diagnosis: ([facility]) Comment 03/2023 9:06 PM DIRECTOR DIGITAL STRATEGY [facility] Comment: NEGATIVE FOR INTRAEPITHELIAL LESION OR MALIGNANCY. THIS SPECIMEN WAS RESCREENED PART OF OUR OTR OWNER OPERATOR TRUCK DRIVER PROGRAM. Specimen Adequacy: ([facility]) Comment 10/11/2023 9:06 PM DIRECTOR DIGITAL STRATEGY [facility] Comment: Satisfactory for evaluation. Endocervical and/or squamous metaplastic cells (endocervical component) are present. Clinician Provided ICD10: ([facility]) Comment 10/11/2023 9:06 PM DIRECTOR DIGITAL STRATEGY [facility] Comment: Z12.4 Performed by: Comment 10/11/2023 9:06 PM [facility] Comment: Rodrigo Hackett Sr, Professor Of German ([facility]) QC Reviewed by: ([facility]) Comment 10/11/2023 9:06 PM [facility] Comment: Saran Sauceda, Professor Of German ([facility]) Cyto Comments ([facility]) . 10/11/2023 9:06 PM DIRECTOR DIGITAL STRATEGY [facility] Note: ([facility]) Comment 9:[address] [facility] Comment: The Pap smear is a screening test designed to aid in the detection of premalignant and malignant conditions of the uterine cervix. It is not a diagnostic procedure and should not be used as the sole means of detecting cervical cancer. Both false-positive and false-negative reports do occur. HPV Aptima ([facility]) Negative Negative 03/2023 9:06 PM DIRECTOR DIGITAL STRATEGY [facility] Comment: This nucleic acid amplification test detects fourteen high-risk HPV types (16,18,31,33,35,39,45,51,52,56,58,59,66,68) without differentiation. HPV Genotype Reflex ([facility]) Comment 10/11/2023 9:06 PM [facility] Comment: Criteria not met, HPV Genotype not performed. Test Methodology ([facility]) Comment 10/11/2023 9:06 PM [facility] Comment: This liquid based ThinPrep(R) pap test was screened with the use of an image guided system. Pap 10/06/2023 3:26 PM DIRECTOR DIGITAL STRATEGY 10/06/2023 3:26 PM DIRECTOR DIGITAL STRATEGY [facility] - 10/11/2023 9:06 PM DIRECTOR DIGITAL STRATEGY Specimen Comment: [id number] Specimen Comment: Source.............Cervix Specimen Comment: LMP / Prev Treat...None Specimen Comment: Dates / Results....LEEP AT AGE 21 Specimen Comment: No. of containers..01 ThinPrep Vial Performed at: - [facility] [address] [address], [place], [place] [id number] Clothes Ironer: Corinne Mckeon MD, Phone: [phone] Performed at: - [facility] [address] [address], [place], [place] [id number] Clothes Ironer: Antoine Bartlett MD, Phone: [phone] Performed at: 03 - [facility] [address] [address], [place], [place] [id number] Clothes Ironer: Micheal Bartlett MD, Phone: [phone] us Renee Nieto PA-C [facility] ORDER[facility]LES Final Re sult Performing Organization Address [facility] [[email or web address]] Co de Phone Number [facility] [address] [place] [address] * HCV ANTIBODY ([facility]) (10/06/2023 3:26 PM DIRECTOR DIGITAL STRATEGY) Hepatitis C Virus Antibody ([facility]) Non Reactive Non Reactive 10/08/2023 8:09 AM DIRECTOR DIGITAL STRATEGY [facility] Comment: HCV antibody alone does not differentiate between previously resolved infection and active infection. Equivocal and Reactive HCV antibody results should be followed up with an HCV RNA test to support the diagnosis of active HCV infection. Blood Venipuncture / Unknown 10/06/2023 3:26 PM DIRECTOR DIGITAL STRATEGY 10/06/2023 3:26 PM DIRECTOR DIGITAL STRATEGY Narrative [facility] - 10/08/2023 8:09 AM DIRECTOR DIGITAL STRATEGY Performed at: - [facility] [address] [place], [place] [id number] Clothes Ironer: Zia Navarrete MD, Phone: [phone] us Renee Nieto PA-C [facility] ORDER[facility]LES Final Re sult Performing Organization Address [facility] [[email or web address]] Co de Phone Number [facility] [address] [place] [address] from Last 3 Months or Most Recently Relevant to Health Maintenance Insurance [facility] Care Teams Diesel Electrician Relationship Specialty Start Date End Date Renee Nieto PA-C PCP - General Family Medicine 02/28/24
--- OUTSIDE RECORDS SUMMARY | 2025-06-25 11:53 | XMS_ITS | Patient Health Record ---
Author Organization [facility] Address [address] [place] [address] Care Team Providers Care Regional Program Manager Name Role Phone None, None Primary Care Provider UnavailDIANELYS Aguilar Unavailable [phone] Darcy Funez Unavailable Unavailable Allergies Allergen (clinical [...] Start Date Coverage End Date [employer] [place] [address] [address] [place] [address] [id number] Jaky Reyes Self - patient is the insured Medical (General) History Medical History History ICD Code Anxiety Depression Autoimmune disorder Hypertension Cervical cancer Surgical History Surgery Date(Month/Year) [place] teeth
[2025-06-25 13:12] LABS: Hematocrit* 36.5 % (33.0-51.0); Hemoglobin* 12.5 gm/dL (12.0-16.0); Mean Corpuscular HGB Conc 34 gm/dL (32-36); Mean Corpuscular Hemoglobin 32 pg (26-34); Mean Corpuscular Volume 92 fL (80-100); Red Blood Count* 3.95 m/uL (4.00-5.20); White Blood Count* 13.25 K/uL (4.50-11.00)
[2025-06-25 13:15] LABS: Slide Review Reflex No
[2025-06-25 13:26] LABS: Alanine Aminotransferase* 9 U/L (4-35); Aspartate Amino Transferase* 22 U/L (12-35); Blood Urea Nitrogen* 6 mg/dL (5-24); Creatinine* 0.4 mg/dL (0.5-1.5); Estimated Glomerular Filt Rate 132 ml/min
[2025-06-25 13:51] LABS: Cannabinoid Screen Urine POSITIVE (Negative); Methamphetamines Screen Urine POSITIVE (Negative); Tricyclic Antidepressant Urine Negative (Negative)
[2025-06-25 14:24] LABS: Protein Creatinine Ratio Urine 0.23 (0-0.19)
--- NOTE | 2025-06-25 15:03 | PC.OBNST ---
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 Reactive Yes Appropriate for Yes Gestational Age RN Case RN Date 06/25/25 Reactive Yes Appropriate for Yes Gestational Age RN [place] RN Date 06/25/25 OB NST charge Yes Complete NST Note Yes via Write Note The provider's electronic signature indicates the NST is reactive/appropriate for gestational age. *Note to provider: If an addendum is required, open the patient's chart and click on the note under the Nurse/Allied Health tab.
== END 2025-06-25 14:50 | disposition home or self-care (01) ==
LOC: OB OUT 12:01 → OB 12:01
PROVIDERS: Visit Provider Obstetrics & Gynecology
DX: O10.912 Unspecified pre-existing hypertension complicating pregnancy, second trimester (principal); O99.322 Drug use complicating pregnancy, second trimester; F11.10 Opioid abuse, uncomplicated; Z3A.25 25 weeks gestation of pregnancy
CPT/HCPCS: 36415; 59025; 80306; 82565; 82570; 84156; 84450; 84460; 84520; 85027; 93005; G0463

== ENCOUNTER 2025-07-11 07:46 | Outpatient (CLI) | payer BC, SELFPAY ==
--- NOTE | 2025-07-11 08:15 | CRLHL7_ITS ---
For Patients: As a result of the Century Cures Act, medical imaging exams and procedure reports are released immediately into your electronic medical record. You may view this report before your referring provider. If you have questions, please contact your health care provider. OB ULTRASOUND LIA by US: 10/06/2025. GA: 27 w, 4 d. Single. Comparison: 06/12/2025, 05/08/2025, 02/28/2025. INDICATION: Drug use complicating . TECHNIQUE: Real time grayscale imaging of the fetus was performed. Transabdominal. CERVIX: Not visualized. POSITIONING: Vertex. AMNIOTIC FLUID: 4.1 cm. SDP (N: greater than 2 x 1 cm) PLACENTA: Technique: Transabdominal. PLACENTA POSITION: Posterior. DOPPLER: heart rate: 144 bpm. BIOMETRY: BPD: 6.7 cm. 26 w, 6 d, 17 percent. HC: 25.1 cm. 27 w, 2 d, 13 percent. AC: 22.9 cm. 27 w, 2 d, 33 percent. FL: 5 cm. 27 w, 0 d, 20 percent. FL/AC ratio: 21.97 percent. HC/AC ratio: 1.09. EFW: 1034 g. Weight: 2 lbs, 4 oz. age by this US: 27 w, 1 d. LIA by this US: 10/09/2025. Percentile by LIA: 23 percent. IMPRESSION: 1. Sonographic gestational age 27 weeks 1 day and sonographic due date 10/09/2025. Good correlation with dates. Normal interval growth. 2. Estimated weight 23rd percentile. Abdominal circumference 33rd percentile. 3. Uterine fibroids measure 3.7 x 2.1 x 3.4 cm in the anterior mid uterus and 1.8 x 1.2 x 1.9 cm in the anterior superior uterus. Trever Groves M.D. Diagnostic Radiologist [email or web address] ALYSE/tara pacheco/Dictated by: Trever Groves MD @ 07/11/2025 8:28:00 AM (Electronically Signed)
== END 2025-07-11 07:47 | disposition home or self-care (01) ==
LOC: US 07:47
PROVIDERS: Visit Provider Obstetrics & Gynecology
DX: O99.322 Drug use complicating pregnancy, second trimester (principal); F19.20 Other psychoactive substance dependence, uncomplicated; O34.12 Maternal care for benign tumor of corpus uteri, second trimester; D25.9 Leiomyoma of uterus, unspecified; Z3A.27 27 weeks gestation of pregnancy
CPT/HCPCS: 76816; 86592

== ENCOUNTER 2025-08-06 14:31 | Outpatient (CLI) | payer BC, SELFPAY ==
[2025-08-06] VITALS (65 sets, daily range): BP systolic 141–184; BP diastolic 86–124; PULSE 59–88; TEMP 36.6; O2SAT 94–99
[2025-08-06] MEDS: LABETALOL HCL 5 MG/ML inj IVP ×3 (15:06→15:38)
[2025-08-06] MEDS: LACTATED RINGERS 1000 ML 1,000 ML 75 ML IV (15:19)
[2025-08-06] MEDS: MAGNESIUM IV 4 GM/100 ML PIGGYBACK IVPB (15:19)
[2025-08-06 15:28] LABS: Hematocrit* 36.0 % (33.0-51.0); Hemoglobin* 12.3 gm/dL (12.0-16.0); Mean Corpuscular HGB Conc 34 gm/dL (32-36); Mean Corpuscular Hemoglobin 31 pg (26-34); Mean Corpuscular Volume 92 fL (80-100); Red Blood Count* 3.92 m/uL (4.00-5.20); White Blood Count* 10.70 K/uL (4.50-11.00)
[2025-08-06 15:33] LABS: Slide Review Reflex No
[2025-08-06 15:48] LABS: Blood Urea Nitrogen* 10 mg/dL (5-24); Creatinine* 0.6 mg/dL (0.5-1.5); Estimated Glomerular Filt Rate 120 ml/min
[2025-08-06 15:49] LABS: Alanine Aminotransferase* 8 U/L (4-35); Aspartate Amino Transferase* 23 U/L (12-35)
[2025-08-06] MEDS: BETAMETHASONE SOD PHOS/ACETATE 6 MG/ML ML 12 MG IM (15:51)
[2025-08-06] MEDS: MAGNESIUM Infusion 40 GM/1,000 ML IV.SOLN IVPB (16:01)
[2025-08-06 16:07] LABS: Protein Creatinine Ratio Urine 12.50 (0-0.19)
[2025-08-06 16:10] LABS: Cannabinoid Screen Urine POSITIVE (Negative); Methamphetamines Screen Urine Negative (Negative); Tricyclic Antidepressant Urine Negative (Negative)
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
[2025-08-06] MEDS: HYDRALAZINE HCL 20 MG/ML inj 10 MG IVP (16:46)
[2025-08-06] MEDS: NICOTINE 21 MG PATCH 1 PATCH TRANSDERMA (16:51)
--- NOTE | 2025-08-06 20:21 | PC.OBNST ---
NST Note NST Note Start: 08/06/25 14:44 Freq: ONCE Status: Active Protocol: Document 08/06/25 20:16 ALZ (Rec: 08/06/25 20:21 ALZ No Response) NST Note 2 Para (# of births) 0 EDC 10/06/25 Gestational Age In 31 Weeks & 2 Days Weeks & Days High Risk Factors High Blood Pressure - Gestational Patient Presented Other with Complaint(s) of Other Complaints swelling, higher BPs. Reactive Yes Appropriate for Yes Gestational Age RN Arthur Tolbert RN Date 08/06/25 SANNA Stiles RN Date 08/06/25 OB NST charge Yes Complete NST Note Yes via Write Note The provider's electronic signature indicates the NST is reactive/appropriate for gestational age. *Note to provider: If an addendum is required, open the patient's chart and click on the note under the Nurse/Allied Health tab.
== END 2025-08-06 20:13 | disposition short-term general hospital (02) ==
LOC: OB OUT 14:31 → OB 14:32
PROVIDERS: Visit Provider Obstetrics & Gynecology
DX: O11.3 Pre-existing hypertension with pre-eclampsia, third trimester (principal); Z3A.31 31 weeks gestation of pregnancy
CPT/HCPCS: 36415; 59025; 76815; 80306; 82565; 82570; 84156; 84450; 84460; 84520; 85027; G0463; J0360; J0702; J3475; J7120; S4990

== ENCOUNTER 2025-08-06 19:59 | Outpatient (CLI) | payer BC, SELFPAY | END 2025-08-06 20:00 | disposition home or self-care (01) | PROVIDERS: Visit Provider Student in an Organized Health Care Education/Training Program | DX: O11.3 Pre-existing hypertension with pre-eclampsia, third trimester (principal); Z3A.31 31 weeks gestation of pregnancy | CPT/HCPCS: A0425; A0434 ==

== ENCOUNTER 2025-09-24 11:40 | Outpatient (CLI) | payer BC, SELFPAY ==
[2025-09-25 23:48] LABS: HPV Source Cervix
[2025-09-27 10:47] LABS: Pap Test Digital Imaging Done
== END 2025-09-24 11:41 | disposition home or self-care (01) ==
PROVIDERS: Visit Provider Physician Assistant
DX: Z12.4 Encounter for screening for malignant neoplasm of cervix (principal)
CPT/HCPCS: 87624; 87625; 88141; 88142; 88175